=== PATIENT | female | born 1965 | race Caucasian/White ===

== ENCOUNTER → 2016-10-17 | Outpatient (CLI) | payer BC | END | disposition home or self-care (01) | LOC: C.PAPS 11:34 | PROVIDERS: ATTEND Obstetrics & Gynecology | DX: Z01.419 Encounter for gynecological examination (general) (routine) without abnormal findings (principal) ==

== ENCOUNTER → 2017-06-19 | Outpatient (CLI) | payer BC | END | disposition home or self-care (01) | LOC: C.PAPS 13:53 | PROVIDERS: ATTEND Obstetrics & Gynecology | DX: R87.612 Low grade squamous intraepithelial lesion on cytologic smear of cervix (LGSIL) (principal); Z78.0 Asymptomatic menopausal state ==

== ENCOUNTER → 2017-11-27 | Outpatient (CLI) | payer OTHER ==
--- NOTE | 2017-11-27 10:30 | DIAGNOSTIC IMAGING REPORT ---
ABDOMEN LIMITED (US) HISTORY: 52 years-old Female RT UPPER ABD DISCOMFORT acute right upper quadrant abdominal pain COMPARISON: None available TECHNIQUE: Multiple real-time sonographic images of the abdominal right upper quadrant were obtained assessing grayscale appearance and color flow FINDINGS: Pancreatic duct is within normal limits, 3 mm. Visualized pancreas appears unremarkable. Gallbladder is within normal limits without wall thickening, pericholecystic fluid or shadowing cholelithiasis. Liver is within normal limits without focal mass or intrahepatic biliary ductal dilation. Common bile duct is mildly dilated, 1.0 cm without obstructing stone or lesion identified. The right kidney appears unremarkable without hydronephrosis. IMPRESSION: 1. Unremarkable sonographic appearance of the gallbladder without cholelithiasis or acute cholecystitis. 2. Mild dilation of the common bile duct without obstructing stone or lesion identified. The above report was generated using voice recognition software. It may contain grammatical, syntax or spelling errors. Electronically signed by: Terry Townsend M.D. 11/27/2017 10:29 AM Dictated Date/Time: 11/27/2017 10:27 AM
== END | disposition home or self-care (01) ==
LOC: C.ULTRBC 10:07
PROVIDERS: ATTEND Physician Assistant
DX: R10.11 Right upper quadrant pain (principal)

== ENCOUNTER → 2018-02-03 | Outpatient (CLI) | payer OTHER ==
[~2018-02-03] MED LIST: DESL1TAB5 PO; HYDR-5688 PO; LANS30CA12 PO; ONDA4TAB46 PO; PANC6000 PO; TRAM-10 PO; VNTHFA/IN INH
[2018-02-03 14:27] LABS: HEMATOCRIT 32.9 % (37-47); MEAN CELL VOLUME 87.7 fL (80-100); MEAN CORPUSCULAR HEMOGLOBIN 29.3 pg (25-34); MEAN CORPUSCULAR HGB CONC 33.4 g/dl (32-36); MEAN PLATELET VOLUME 10.3 fL (7.4-10.4); PLATELET COUNT 156 K/uL (130-400); RED CELL DISTRIBUTION WIDTH CV 15.3 % (11.5-14.5); RED CELL DISTRIBUTION WIDTH SD 48.3 fL (36.4-46.3); WHITE BLOOD COUNT 6.07 K/uL (4.8-10.8)
[2018-02-03 14:57] LABS: ALBUMIN 2.8 gm/dl (3.4-5.0); ALKALINE PHOSPHATASE 276 U/L (45-117); ALT/SGPT 44 U/L (12-78); AST/SGOT 26 U/L (15-37); BLOOD UREA NITROGEN 6 mg/dl (7-18); CALCIUM 8.3 mg/dl (8.5-10.1); CARBON DIOXIDE 22 mmol/L (21-32); CREATININE 0.54 mg/dl (0.60-1.20); GLUCOSE 132 mg/dl (70-99); POTASSIUM 3.4 mmol/L (3.5-5.1); SODIUM 135 mmol/L (136-145); TOTAL PROTEIN 7.4 gm/dl (6.4-8.2)
[2018-02-03 15:11] LABS: BASO % 0.5 %; BASO ABS # 0.03 K/uL (0-0.2); EOS % 2.5 %; EOS ABS # 0.15 K/uL (0-0.5); IG# 0.26 K/uL (0.00-0.02); LYMPH % 24.1 %; LYMPH ABS # 1.46 K/uL (1.2-3.4); MONO % 13.7 %; MONO ABS # 0.83 K/uL (0.11-0.59); NEUT % 54.9 %; NEUT ABS # 3.34 K/uL (1.4-6.5)
== END | disposition home or self-care (01) ==
LOC: C.LABSPEC 14:09
PROVIDERS: ATTEND Internal Medicine Hematology & Oncology
DX: C25.9 Malignant neoplasm of pancreas, unspecified (principal)

== ENCOUNTER 2018-02-12 17:16 | Inpatient (IN) | payer OTHER ==
[~2018-02-12] VITALS: Ht 175.3 cm; Wt 73.7 kg
[2018-02-12] MEDS ORDERED: SODIUM CHLORIDE 0.9% 1000ML 1,000 ML IV STA (17:37)
[2018-02-12] MEDS ORDERED: DiphenhydrAMINE HCL 50 MG/ML VIAL IV STA (17:37)
[2018-02-12] MEDS ORDERED: METHYLPREDNISOLONE 125 MG VIAL IV STA (17:37)
[2018-02-12] MEDS ORDERED: ONDANSETRON INJ 2 MG/ML 2 ML VIAL IV STA (17:37)
[2018-02-12] MEDS ORDERED: OPTIRAY 320 IV PRN (17:45)
[2018-02-12] MEDS: FENTANYL CITRATE INJ 50 MCG/1 ML 2 ML VIAL IV PRN ×2 (18:12→22:18)
--- NOTE | 2018-02-12 18:15 | DIAGNOSTIC IMAGING REPORT ---
CHEST ONE VIEW PORTABLE CLINICAL HISTORY: EVALUATE ALTERED MENTAL STATUS/WEAKNESS COMPARISON STUDY: 01/20/2018 FINDINGS: The bones soft tissues and hemidiaphragms are normal. The cardiomediastinal silhouette is normal. The lungs are clear. The pulmonary vasculature is normal. IMPRESSION: Negative chest. The above report was generated using voice recognition software. It may contain grammatical, syntax or spelling errors. Electronically signed by: Jimmy Sellers M.D. 02/12/2018 6:14 PM Dictated Date/Time: 02/12/2018 6:13 PM
[2018-02-12 18:24] LABS: ISTAT CREATININE 0.3 mg/dl (0.6-1.3); ISTAT IONIZED CALCIUM 1.1 mmol/l (1.12-1.32); ISTAT POTASSIUM 3.6 mEq/L (3.3-5.0)
[2018-02-12 18:36] LABS: ALBUMIN 2.7 gm/dl (3.4-5.0); CALCIUM 8.4 mg/dl (8.5-10.1); CREATININE 0.52 mg/dl (0.60-1.20); POTASSIUM 3.5 mmol/L (3.5-5.1); TOTAL PROTEIN 6.8 gm/dl (6.4-8.2)
--- NOTE | 2018-02-12 18:41 | DIAGNOSTIC IMAGING REPORT ---
ABD/PELVIS IV CONTRAST ONLY CT DOSE: 348.45 mGy.cm HISTORY: Pain. Nausea. uppwer pain, hx of pancreatic CA with duodenal stent TECHNIQUE: Multiaxial CT images of the abdomen and pelvis were performed following the use of intravenous contrast. A dose lowering technique was utilized adhering to the principles of ALARA. COMPARISON STUDY: 01/01/2018 FINDINGS: Interval placement of a transhepatic biliary drain. This appears to be in appropriate position. The stent previously described is unchanged. Lung bases are clear. There is trace amount of the biliary ductal air considered unremarkable given the stent placements as noted. The peripancreatic infiltrative change present described as diminished. Masslike process lesion the pancreatic head and uncinate process is similar. The infiltrative change of the peripancreatic region in this location appears stable. The distended gallbladder in the prior study is no longer present. The bowel pattern is considered nonobstructive throughout. There is a trace amount of infiltrative change of the paracolic gutters but this is improved. There is a small amount of pelvic ascites diminished and/or improved from the prior study. Uterus is anteflexed. Bladder is midline. IMPRESSION: 1. Improved exam post transhepatic biliary stent placement. 2. No current evidence for significant biliary ductal distention. 3. Improved gallbladder with no current evidence for distention. 4. Improved ascites with minimal residual in the pelvis. 5. Improved peripancreatic infiltrative change 6. Unchanging pancreatic head/uncinate process mass. The above report was generated using voice recognition software. It may contain grammatical, syntax or spelling errors. Electronically signed by: Jimmy Sellers M.D. 02/12/2018 6:37 PM Dictated Date/Time: 02/12/2018 6:29 PM
[2018-02-12 18:56] LABS: HEMATOCRIT 25.8 % (37-47); HEMOGLOBIN 8.9 g/dL (12.0-16.0); MEAN CELL VOLUME 84.3 fL (80-100); MEAN CORPUSCULAR HEMOGLOBIN 29.1 pg (25-34); MEAN CORPUSCULAR HGB CONC 34.5 g/dl (32-36); RED CELL DISTRIBUTION WIDTH CV 14.6 % (11.5-14.5); WHITE BLOOD COUNT 1.16 K/uL (4.8-10.8)
[2018-02-12] MEDS ORDERED: MAGIC MOUTHWASH PO (19:22)
[2018-02-12] MEDS ORDERED: PROC10TA PO (19:22)
[2018-02-12] MEDS ORDERED: ALBUTEROL INH (19:22)
[2018-02-12] MEDS ORDERED: CLR10 PO (19:22)
[2018-02-12] MEDS ORDERED: [UNRECOGNIZED DRUG - MIXTURE] IV (19:22)
[2018-02-12 19:26] LABS: MEAN PLATELET VOLUME 10.9 fL (7.4-10.4); PLATELET COUNT 64 K/uL (130-400)
[2018-02-12] MEDS ORDERED: VANCOMYCIN IV 1,400 MG in SODIUM CHLORIDE 0.9% 500ML 500 ML IV STA (20:54)
[2018-02-12] MEDS ORDERED: PIPERACILLIN/TAZOBACTAM 4.5 GM/100ML D5W IV STA (20:54)
[2018-02-12] MEDS ORDERED: VANCOMYCIN CONSULT ACTIVE PRN ×3 (21:00→22:45)
[2018-02-12] MEDS ORDERED: ACETAMINOPHEN 325 MG TAB PO PRN (21:30)
--- NOTE | 2018-02-12 21:30 | EMERGENCY ROOM VISIT NOTE ---
History Report prepared by Bri: America Akins Under the Supervision of: Dr. Hammad Mcneil D.O. First contact with patient: 17:27 Chief Complaint: VOMITING Stated Complaint: VOMITING,DEHYDRATED,ON CHEMO PANCREATIC CANCER History of Present Illness The patient is a 53 year old female who presents to the Emergency Room with complaints of constant vomiting starting today. The patient states that she has pancreatic cancer. She reports that she is currently going through her second round of chemotherapy. She reports that she has been fatigued, but was during the first round as well. The patient states that last night she started having lower abdominal pain that felt like cramping. She reports that she took Tramadol and it subsided overnight. She notes that she has a fibroid and talked to her OB[facility] since she is unsure if it is related. She reports that this morning she started having sharp pain in her upper abdomen. She states that it gets better in certain body positions. The patient reports that she last vomited an hour and a half ago. The patient reports that she has a duodenal stent and biliary drain placed due to her cancer progressing. She states that she is nervous the stent moved. She notes that she called Dr. Suarez and he said to come to the ED. The patient complains of diarrhea, a dry throat, and a low grade fever. She notes that her fever was 99. The patient denies having nausea medications, cough, leg swelling, her drain draining abnormally, and use of blood thinners. The patient notes that her LNMP was over 2 years ago. Source of History: patient Onset: today Position: abdomen Quality: other (vomiting) Timing: constant Modifying Factors (Relieving): other (Tramadol, certain body positions) Associated Symptoms: + fevers (low grade), + abdominal pain, + diarrhea, + fatigue, No cough Note: The patient complains of a dry throat. The patient denies leg swelling and her drain draining abnormally. Review of Systems See HPI for pertinent positives & negatives. A total of 10 systems reviewed and were otherwise negative. Past Medical & Surgical Medical Problems: (1) Mononucleosis (2) Pancreatic cancer (3) Pancytopenia due to chemotherapy Family History No pertinent family history Social History Smoking Status: Never Smoker Marital Status: Housing Status: lives with family Occupation Status: employed Current/Historical Medications Scheduled Lansoprazole (Prevacid), 30 MG PO QAM Loratadine (Claritin), 10 MG PO DAILY Pancrelipase (Lipase-Protease- (Creon), 72,000 UNITS PO TIDM [Folfirinox], 1 DOSE IV UD [Magic Mouthwash], 1 DOSE PO PRN Scheduled PRN Ondansetron Hcl (Zofran), 4 MG PO Q6 PRN for Nausea Prochlorperazine Maleate (Compazine), 10 MG PO Q6H PRN for Nausea or Vomiting Tramadol (Ultram), 50 MG PO Q4H PRN for Pain [Proair 90 Base], 2 PUFF INH Q4 PRN for Wheezing Allergies Coded Allergies: Iodine (Verified Allergy, Intermediate, ITCHY/HIVES, 01/20/18) Iodinated Diagnostic Agents (Verified Allergy, Unknown, CONTRAST MEDIA: ITCHY/HIVES, 01/20/18) Physical Exam Vital Signs Date Time Temp Pulse Resp B/P (MAP) Pulse Ox O2 Delivery O2 Flow Rate FiO2 02/12/18 21:51 75 18 106/64 96 Room Air 02/12/18 20:28 84 108/60 02/12/18 19:53 85 18 91/53 96 Room Air 02/12/18 18:42 90 16 112/65 95 Room Air 02/12/18 17:54 94 02/12/18 17:45 96 Room Air 02/12/18 17:21 37.2 107 18 111/74 96 Room Air Physical Exam GENERAL: Patient is awake, alert, and very anxious appearing. Uncomfortable. EYES: The conjunctivae are clear. The pupils are round and reactive. EARS, NOSE, MOUTH AND THROAT: The nose is without any evidence of any deformity. Mucous membranes are dry. Tongue is midline NECK: The neck is nontender and supple. RESPIRATORY: Normal respiratory effort is noted. There is no evidence of wheezing rhonchi or rales to auscultation. CARDIOVASCULAR: Regular rate and rhythm noted. There no murmurs rubs or gallops normal S1 normal S2 GASTROINTESTINAL: The abdomen is mildly distended, but soft. Bowel sounds are present in all quadrants. RUQ tenderness to palpation. Drain in RUQ with bile draining into bag. BACK: No midline tenderness or or step-off noted range of motion in flexion extension as well as rotation no signs of muscle spasm noted. MUSCULOSKELETAL/EXTREMITIES: There is no evidence of gross deformity. Full range of motion is noted in the hips and shoulders. SKIN: There is no obvious evidence of any rash. There are no petechiae, pallor or cyanosis noted. Trace pedal edema bilaterally. NEUROLOGIC: Patient is awake alert and oriented x3. Strength is symmetric. Patellar reflexes are 2+ bilaterally. Medical Decision & Procedures ER Provider Diagnostic Interpretation: Radiology results as stated below per my review and radiologist interpretation: CHEST ONE VIEW PORTABLE CLINICAL HISTORY: EVALUATE ALTERED MENTAL STATUS/WEAKNESS COMPARISON STUDY: 01/20/2018 FINDINGS: The bones soft tissues and hemidiaphragms are normal. The cardiomediastinal silhouette is normal. The lungs are clear. The pulmonary vasculature is normal. IMPRESSION: Negative chest. The above report was generated using voice recognition software. It may contain grammatical, syntax or spelling errors. Electronically signed by: Jimmy Sellers M.D. 02/12/2018 6:14 PM Dictated Date/Time: 02/12/2018 6:13 PM ABD/PELVIS IV CONTRAST ONLY CT DOSE: 348.45 mGy.cm HISTORY: Pain. Nausea. uppwer pain, hx of pancreatic CA with duodenal stent TECHNIQUE: Multiaxial CT images of the abdomen and pelvis were performed following the use of intravenous contrast. A dose lowering technique was utilized adhering to the principles of ALARA. COMPARISON STUDY: 01/01/2018 FINDINGS: Interval placement of a transhepatic biliary drain. This appears to be in appropriate position. The stent previously described is unchanged. Lung bases are clear. There is trace amount of the biliary ductal air considered unremarkable given the stent placements as noted. The peripancreatic infiltrative change present described as diminished. Masslike process lesion the pancreatic head and uncinate process is similar. The infiltrative change of the peripancreatic region in this location appears stable. The distended gallbladder in the prior study is no longer present. The bowel pattern is considered nonobstructive throughout. There is a trace amount of infiltrative change of the paracolic gutters but this is improved. There is a small amount of pelvic ascites diminished and/or improved from the prior study. Uterus is anteflexed. Bladder is midline. IMPRESSION: 1. Improved exam post transhepatic biliary stent placement. 2. No current evidence for significant biliary ductal distention. 3. Improved gallbladder with no current evidence for distention. 4. Improved ascites with minimal residual in the pelvis. 5. Improved peripancreatic infiltrative change 6. Unchanging pancreatic head/uncinate process mass. The above report was generated using voice recognition software. It may contain grammatical, syntax or spelling errors. Electronically signed by: Jimmy Sellers M.D. 02/12/2018 6:37 PM Dictated Date/Time: 02/12/2018 6:29 PM Laboratory Results 02/12/18 18:36 Red Blood Count 3.06, Mean Corpuscular Volume 84.3, Mean Corpuscular Hemoglobin 29.1, Mean Corpuscular Hemoglobin Concent 34.5, Mean Platelet Volume 10.9 02/12/18 18:00 Test 02/12/18 18:00 02/12/18 18:08 02/12/18 18:36 02/12/18 18:43 Est Creatinine Clear Calc Drug Dose 133.8 ml/min Estimated GFR () 128.2 Estimated GFR (Non- 110.6 BUN/Creatinine Ratio 12.6 (10-20) Calcium Level 8.4 mg/dl (8.5-10.1) Magnesium Level 2.2 mg/dl (1.8-2.4) Total Bilirubin 2.3 mg/dl (0.2-1) Direct Bilirubin 1.8 mg/dl (0-0.2) Aspartate Amino Transf (AST/SGOT) 18 U/L (15-37) Alanine Aminotransferase (ALT/SGPT) 41 U/L (12-78) Alkaline Phosphatase 193 U/L (45-117) Total Protein 6.8 gm/dl (6.4-8.2) Albumin 2.7 gm/dl (3.4-5.0) Lipase 259 U/L (73-393) Bedside Hemoglobin 11.2 g/dl (12.0-16.0) Bedside Hematocrit 33 % (37-47) Bedside Sodium 130 mEq/L (135-144) Bedside Potassium 3.6 mEq/L (3.3-5.0) Bedside Chloride 94 mEq/L (101-112) Bedside Total CO2 23 mEq/l (24-31) Anion Gap 17.0 mmol/L (16-25) Bedside Blood Urea Nitrogen 5 mg/dl (7-18) Bedside Creatinine 0.3 mg/dl (0.6-1.3) Bedside Glucose (other) 118 mg/dl (70-99) Bedside Ionized Calcium (Savita) 1.10 mmol/l (1.12-1.32) White Blood Count 1.16 K/uL (4.8-10.8) Red Blood Count 3.06 M/uL (4.2-5.4) Hemoglobin 8.9 g/dL (12.0-16.0) Hematocrit 25.8 % (37-47) Mean Corpuscular Volume 84.3 fL (80-100) Mean Corpuscular Hemoglobin 29.1 pg (25-34) Mean Corpuscular Hemoglobin Concent 34.5 g/dl (32-36) Platelet Count 64 K/uL (130-400) Mean Platelet Volume 10.9 fL (7.4-10.4) RDW Standard Deviation 45.0 fL (36.4-46.3) RDW Coefficient of Variation 14.6 % (11.5-14.5) Neutrophils % (Manual) 6.4 % Lymphocytes % (Manual) 84.4 % Monocytes % (Manual) 9.2 % Neutrophils # (Manual) 0.07 K/uL (1.4-6.5) Total Absolute Neutrophils 0.07 K/uL (1.4-6.5) Lymphocytes # (Manual) 0.98 K/uL (1.2-3.4) Total Absolute Lymphocytes 0.98 K/uL (1.2-3.4) Monocytes # (Manual) 0.11 K/uL (0.11-0.59) Dohle Bodies 2+ Large Platelets 2+ Urine Color YELLOW Urine Appearance CLEAR (CLEAR) Urine pH 7.0 (4.5-7.5) Urine Specific [place] 1.015 (1.000-1.030) Urine Protein NEG (NEG) Urine Glucose (UA) NEG (NEG) Urine Ketones NEG (NEG) Urine Occult Blood NEG (NEG) Urine Nitrite NEG (NEG) Urine Bilirubin NEG (NEG) Urine Urobilinogen NEG (NEG) Urine Leukocyte Esterase TRACE (NEG) Urine WBC (Auto) 5-10 /hpf (0-5) Urine RBC (Auto) 0-4 /hpf (0-4) Urine Hyaline Casts (Auto) 0 /lpf (0-5) Urine Epithelial Cells (Auto) 5-10 /lpf (0-5) Urine Bacteria (Auto) NEG (NEG) Laboratory results per my review. Medications Administered Medications (Trade) Dose Ordered Sig/Rae Route Start Time Stop Time Status Last Admin Dose Admin Ondansetron HCl (Zofran Inj) 4 mg NOW STAT IV 02/12/18 17:37 02/12/18 17:40 DC 02/12/18 18:11 4 MG Sodium Chloride 1,000 ml @ 999 mls/hr Q1H1M STAT IV 02/12/18 17:37 02/12/18 18:37 DC 02/12/18 18:11 999 MLS/HR Fentanyl Citrate (Fentanyl Inj) 50 mcg Q20M PRN IV 02/12/18 17:45 02/26/18 17:44 02/12/18 22:18 50 MCG Methylprednisolone Sodium Succinate (Solu-Medrol IV) 125 mg NOW STAT IV 02/12/18 17:37 02/12/18 17:40 DC 02/12/18 18:11 125 MG Diphenhydramine HCl (Benadryl Inj) 25 mg NOW STAT IV 02/12/18 17:37 02/12/18 17:40 DC 02/12/18 18:11 25 MG Piperacillin Sod/ Tazobactam Sod (Zosyn Iv) 4.5 gm NOW STAT IV 02/12/18 20:54 02/12/18 20:56 DC 02/12/18 21:10 4.5 GM Vancomycin HCl 1400 mg/Sodium Chloride 528 ml @ 200 mls/hr ONE STAT IV 02/12/18 20:54 02/12/18 23:32 02/12/18 21:50 200 MLS/HR Pantoprazole Sodium 40 mg/ Syringe 10 ml @ 5 mls/min NOW STAT IV 02/12/18 21:51 02/12/18 21:52 DC 02/12/18 22:18 5 MLS/MIN ECG Per My Interpretation Indication: vomiting Rate (beats per minute): 96 Rhythm: normal sinus Findings: other (diffuse ST and T wave abnormalities noted) Comparison ECG Date: 01/01/2018 Change: no significant change ED Course 173: The patient was evaluated in room A2. A complete history and physical examination were performed. 1736: Ordered Benadryl Inj 25 mg IV, Solu-Medrol IV 125 mg IV, NSS 1000 ml @ 999 mls/hr IV, Zofran Inj 4 mg IV. 1745: Ordered Fentanyl Inj 50 mcg PRN IV Pain. 1929: I reevaluated the patient and updated her on her test results. I discussed the treatment plan with her. She verbally agrees and understands. 2052: I discussed the patient's case with Dr. aMrk SAEZ Hospitalist. He would like an order of Zosyn and Vancomycin. The patient will be evaluated for further management. 2053: Ordered Vancomycin HCl 1400 mg/Sodium Cloride 528 ml @ 200 mls/hr IV, Zosyn Iv 4.5 gm IV. Medical Decision Prior records/ancillary studies reviewed. Triage Nursing notes reviewed. The patient's history was concerning for abdominal pain. Differential diagnosis: Etiologies such as appendicitis, diverticulitis, PUD, biliary pathology, UTI, pancreatitis, obstruction, mesenteric ischemia, aortic pathology, infections, inflammatory bowel disease, renal colic, as well as others were entertained. The patient is a 53-year-old female who has a history of pancreatic cancer. The patient has a biliary stent as well as a duodenal stent. She came to the emergency department today because of abdominal discomfort. She recently received chemotherapy. She was pancytopenic with significant neutropenia. I discussed patient's laboratory and radiographic studies with her. She was treated with IV fluids IV pain medicine and IV anti-medics. Because of her laboratory studies she was started on IV antibiotics. I discussed patient's laboratory and radiographic studies with her. I also discussed this case with the on-call [facility] hospitalist. They have agreed to evaluate patient in the emergency department for further management and disposition. Medication Reconcilliation Current Medication List: was personally reviewed by me Blood Pressure Screening Patient's blood pressure: Normal blood pressure Blood pressure disposition: Did not require urgent referral Consults Time Called: 2003 Consulting Physician: Dr. Mark SAZE Hospitalist Returned Call: [phone] I discussed the patient's case with Dr. Mark SAEZ Hospitalist. He would like an order of Zosyn and Vancomycin. The patient will be evaluated for further management. Impression Primary Impression: Neutropenia Additional Impressions: Abdominal pain Pancreatic cancer Hyponatremia Hyperbilirubinemia Scribe Attestation The scribe's documentation has been prepared under my direction and personally reviewed by me in its entirety. I confirm that the note above accurately reflects all work, treatment, procedures, and medical decision making performed by me. Departure Information Dispostion Being Evaluated By Hospitalist Referrals Pro,Hammad Castillo M.D. (PCP) Patient Instructions [facility] Problem Qualifiers
[2018-02-12] MEDS ORDERED: VANCOMYCIN IV 1,000 MG in SODIUM CHLORIDE 0.9% 250ML 250 ML IV STA (21:32)
[2018-02-12] MEDS ORDERED: DiphenhydrAMINE HCL 50 MG/ML VIAL IV PRN (21:45)
[2018-02-12] MEDS ORDERED: ONDANSETRON INJ 2 MG/ML 2 ML VIAL IV PRN (21:45)
[2018-02-12] MEDS ORDERED: PIPERACILL/TAZOBAC CONSULT ACTIVE PRN (21:45)
[2018-02-12] MEDS ORDERED: ACETAMINOPHEN IV 100 ML IV PRN (21:45)
[2018-02-12] MEDS ORDERED: VANCOMYCIN IV 1,750 MG in SODIUM CHLORIDE 0.9% 500ML 500 ML IV STA (21:47)
[2018-02-12] MEDS ORDERED: PANTOprazole INJ 40 MG in SYRINGE 0 ML IV STA (21:51)
[2018-02-12] MEDS ORDERED: PROCHLORPERAZINE INJ 10 MG in SYRINGE 8 ML IV PRN (22:15)
--- NOTE | 2018-02-12 22:30 | Pharmacy Progress Note ---
Pharmacy Abx Dose Short Note Date of Service Feb 12, 2018. Assessment & Plan Assessment 53 year old female admitted with sever abdominal pain, pancytopenic...receiving Vancomycin and zosyn Day # 1 of antimicrobial therapy. * Pt is currently being treated with chemo for pancreatic cancer. * Blood cultures pending. * Renal function at baseline. Plan Vancomycin * Loading dose 1400mg (19mg/kg) x 1 * Maintenance dose: 1000mg (14mg/kg) iv q 8 hours * Goal trough level : 15 to 20 mcg/mL * Trough level ordered for: 02/14 @0930 Zosyn * 4.5 gm iv x 1 in ER * then 3.375gm iv q 8 hours (EI) Pharmacy will continue to follow and will adjust dose/frequency as necessary. Thank you.
[2018-02-12 22:35] VITALS: BP 97/65; PULSE 78; TEMP 36.8; O2SAT 97; BMI 23.0
--- NOTE | 2018-02-12 22:53 | History and Physical ---
History & Physical Date & Time of Service: Feb 12, 2018 at 22:53 Chief Complaint: Pancreatic Cancer,Pancytopenia Due To Chemotherapy Primary Care Physician: Hammad Mathis M.D. History of Present Illness Source: patient, family, hospital records Past Medical/Surgical History Medical Problems: (1) Abdominal pain (2) Dehydration (3) Elevated LFTs (4) Mononucleosis (5) Pancreatic cancer (6) Pancreatitis (7) Pancytopenia due to chemotherapy (8) UTI (urinary tract infection) Family History No pertinent family history The patient is a 53-year-old female with a recent diagnosis of pancreatic cancer , having completed the first cycle of chemotherapy, who presents to the emergency department with persistent nausea and vomiting that began earlier in the day today. She has had lower crampy abdominal discomfort, for which she is also seeing Dr. Shell from [facility] with concern that it is due to a fibroid. Her pain did resolve overnight with tramadol. When she woke up this morning, the pain was more sharp in her upper abdomen epigastric area. She has had duodenal stent and biliary stent placement, and her initial ERCP was performed by Dr. treviño so here on 12/17/17, and underwent surgery by Dr. Jamari Pérez on . She called Dr. kamila Kuo's office, and she was concerned that the stent has moved, and he told her to come to the emergency department for assessment. Patient also has loose stools, a dry throat, and intermittent low-grade fever up to a max of 99. Social History Smoking Status: Never Smoker Smokeless Tobacco Use: No Alcohol Use: none Drug Use: none Marital Status: Housing status: lives with family Occupational Status: employed Immunizations History of Influenza Vaccine: Unknown History of Tetanus Vaccine?: Unknown History of Pneumococcal: Unknown History of Hepatitis B Vaccine: Unknown Allergies Coded Allergies: Iodine (Verified Allergy, Intermediate, ITCHY/HIVES, 01/20/18) Iodinated Diagnostic Agents (Verified Allergy, Unknown, CONTRAST MEDIA: ITCHY/HIVES, 01/20/18) Home Medications Scheduled Lansoprazole (Prevacid), 30 MG PO QAM Loratadine (Claritin), 10 MG PO DAILY Pancrelipase (Lipase-Protease- (Creon), 72,000 UNITS PO TIDM [Folfirinox], 1 DOSE IV UD [Magic Mouthwash], 1 DOSE PO PRN Scheduled PRN Ondansetron Hcl (Zofran), 4 MG PO Q6 PRN for Nausea Prochlorperazine Maleate (Compazine), 10 MG PO Q6H PRN for Nausea or Vomiting Tramadol (Ultram), 50 MG PO Q4H PRN for Pain [Proair 90 Base], 2 PUFF INH Q4 PRN for Wheezing Review of Systems The patient denies chest pain, palpitations, shortness of breath, dyspnea on exertion, cough, lower extremity swelling, blood in urine or stool, dysuria, urinary frequency or urgency, lightheadedness , dizziness, headache, memory loss, loss of consciousness, rash, abnormal bruising or bleeding, imbalance, focal or generalized weakness, numbness or tingling in arms or legs, generalized arthralgias or myalgias, back or neck pain, or night sweats. The review of systems is otherwise negative other than for that already noted above, and at least 10 systems have been reviewed. Physical Exam Vital Signs Date Time Temp Pulse Resp B/P (MAP) Pulse Ox O2 Delivery O2 Flow Rate FiO2 02/12/18 21:51 75 18 106/64 96 Room Air 02/12/18 20:28 84 108/60 02/12/18 19:53 85 18 91/53 96 Room Air 02/12/18 18:42 90 16 112/65 95 Room Air 02/12/18 17:54 94 02/12/18 17:45 96 Room Air 02/12/18 17:21 37.2 107 18 111/74 96 Room Air The patient is awake, alert and oriented 3, well developed and well nourished, normocephalic and atraumatic, lying in bed and in no acute distress. HEENT--PERRL, EOMI, mucous membranes and oropharynx dry. Neck--supple. No JVD. No bruits. Thyroid normal, trachea midline, no adenopathy. Heart--normal S1 and S2. No murmurs, rubs or gallops. Lungs--clear bilaterally, no respiratory distress, no accessory muscle use. Abdomen--normal bowel sounds and soft. Mild epigastric tenderness. Nondistended. Extremities--no cyanosis or clubbing. No edema. There are good distal pulses b/ l. Dermatologic--normal skin turgor, normal color, no abnormal lymph nodes, no rash. Neurologic--cranial nerves II through XII grossly intact. Rheumatologic--normal range of motion. Psychiatric--normal affect. Diagnostics Laboratory Results Results Past 24 Hours Test 02/12/18 18:00 02/12/18 18:08 02/12/18 18:36 02/12/18 18:43 Range/Units Sodium Level 127 136-145 mmol/L Potassium Level 3.5 3.5-5.1 mmol/L Chloride Level 96 98-107 mmol/L Carbon Dioxide Level 25 21-32 mmol/L Anion Gap 6.0 17.0 16-25 mmol/L Blood Urea Nitrogen 7 7-18 mg/dl Creatinine 0.52 0.60-1.20 mg/dl Est Creatinine Clear Calc Drug Dose 133.8 ml/min Estimated GFR () 128.2 Estimated GFR (Non- 110.6 BUN/Creatinine Ratio 12.6 10-20 Random Glucose 113 70-99 mg/dl Calcium Level 8.4 8.5-10.1 mg/dl Magnesium Level 2.2 1.8-2.4 mg/dl Total Bilirubin 2.3 0.2-1 mg/dl Direct Bilirubin 1.8 0-0.2 mg/dl Aspartate Amino Transf (AST/SGOT) 18 15-37 U/L Alanine Aminotransferase (ALT/SGPT) 41 12-78 U/L Alkaline Phosphatase 193 45-117 U/L Total Protein 6.8 6.4-8.2 gm/dl Albumin 2.7 3.4-5.0 gm/dl Lipase 259 73-393 U/L Bedside Hemoglobin 11.2 12.0-16.0 g/dl Bedside Hematocrit 33 37-47 % Bedside Sodium 130 135-144 mEq/L Bedside Potassium 3.6 3.3-5.0 mEq/L Bedside Chloride 94 101-112 mEq/L Bedside Total CO2 23 24-31 mEq/l Bedside Blood Urea Nitrogen 5 7-18 mg/dl Bedside Creatinine 0.3 0.6-1.3 mg/dl Bedside Glucose (other) 118 70-99 mg/dl Bedside Ionized Calcium (Savita) 1.10 1.12-1.32 mmol/l White Blood Count 1.16 4.8-10.8 K/uL Red Blood Count 3.06 4.2-5.4 M/uL Hemoglobin 8.9 12.0-16.0 g/dL Hematocrit 25.8 37-47 % Mean Corpuscular Volume 84.3 80-100 fL Mean Corpuscular Hemoglobin 29.1 25-34 pg Mean Corpuscular Hemoglobin Concent 34.5 32-36 g/dl Platelet Count 64 130-400 K/uL Mean Platelet Volume 10.9 7.4-10.4 fL RDW Standard Deviation 45.0 36.4-46.3 fL RDW Coefficient of Variation 14.6 11.5-14.5 % Neutrophils % (Manual) 6.4 % Lymphocytes % (Manual) 84.4 % Monocytes % (Manual) 9.2 % Neutrophils # (Manual) 0.07 1.4-6.5 K/uL Total Absolute Neutrophils 0.07 1.4-6.5 K/uL Lymphocytes # (Manual) 0.98 1.2-3.4 K/uL Total Absolute Lymphocytes 0.98 1.2-3.4 K/uL Monocytes # (Manual) 0.11 0.11-0.59 K/uL Dohle Bodies 2+ Large Platelets 2+ Urine Color YELLOW Urine Appearance CLEAR CLEAR Urine pH 7.0 4.5-7.5 Urine Specific Freeman 1.015 1.000-1.030 Urine Protein NEG NEG Urine Glucose (UA) NEG NEG Urine Ketones NEG NEG Urine Occult Blood NEG NEG Urine Nitrite NEG NEG Urine Bilirubin NEG NEG Urine Urobilinogen NEG NEG Urine Leukocyte Esterase TRACE NEG Urine WBC (Auto) 5-10 0-5 /hpf Urine RBC (Auto) 0-4 0-4 /hpf Urine Hyaline Casts (Auto) 0 0-5 /lpf Urine Epithelial Cells (Auto) 5-10 0-5 /lpf Urine Bacteria (Auto) NEG NEG Microbiology Results 02/12/18 Blood Culture, Received Pending 02/12/18 Blood Culture, Received Pending Diagnostic Radiology Patient Name: ALDO ORTEGA Unit Number: [id number] Dictated: 02/12/181812 Transcribed: 02/12/181812 MS Printed Date/Time: [~ rep prt dt]/[~ rep prt tm] [~ rep ct labl] - [~ rep ct ivnm] [facility] [place] [address] Dictated: 02/12/181812 Transcribed: 02/12/181812 MS Printed Date/Time: [~ rep prt dt]/[~ rep prt tm] [~ rep ct labl] - [~ rep ct ivnm] CHEST ONE VIEW PORTABLE CLINICAL HISTORY: EVALUATE ALTERED MENTAL STATUS/WEAKNESS COMPARISON STUDY: 01/20/2018 FINDINGS: The bones soft tissues and hemidiaphragms are normal. The cardiomediastinal silhouette is normal. The lungs are clear. The pulmonary vasculature is normal. IMPRESSION: Negative chest. The above report was generated using voice recognition software. It may contain grammatical, syntax or spelling errors. Electronically signed by: Jimmy Sellers M.D. 02/12/2018 6:14 PM Dictated Date/Time: 02/12/2018 6:13 PM The status of this report is Signed. Draft = Not yet reviewed or approved by Radiologist. Signed = Reviewed and approved by Radiologist. <AttendingPhy></AttendingPhy> <FamilyPhy>Hammad Mathis M.D.</FamilyPhy> < PrimaryPhy>Hammad Mathis M.D.</PrimaryPhy> <UnitNumber>[id number]</UnitNumber > <VisitNumber>[id number]</VisitNumber> <PatientName>ALDO ORTEGA Elicia</PatientName> <DateOfBirth>1965</DateOfBirth> <Location>[facility]</ Location> <ServiceDate>02/12/18</ServiceDate> <MNE>ESINDI</MNE> <OrderingPhy> Hammad Mcneil D.O.</OrderingPhy> <OrderingPhyMNE>f rep ord dr zamora</ OrderingPhyMNE> <DictatingPhyMNE>f rep dict dr zamora</DictatingPhyMNE> <CCListMNE> f rep ct luis daniele</CCListMNE> <AdmittingPhyMNE>f pt admit dr zamora</AdmittingPhyMNE> < AttendingPhyMNE>f pt attend dr zamora</AttendingPhyMNE> <ConsultingPhyMNE>f pt consult dr zamora</ConsultingPhyMNE> <FamilyPhyMNE>f pt fam dr zamora</FamilyPhyMNE> <OtherPhyMNE>f pt other dr zamora</OtherPhyMNE> < PrimaryPhyMNE>f pt prim care dr zamora</PrimaryPhyMNE> <ReferringPhyMNE>f pt referring dr zamora</ReferringPhyMNE> Patient Name: ALDO ORTEGA Unit Number: [id number] Dictated: 02/12/181828 Transcribed: 02/12/181828 MS Printed Date/Time: [~ rep prt dt]/[~ rep prt tm] [~ rep ct labl] - [~ rep ct ivnm] [facility] Radiology Department [place], [place] [id number] Dictated: 02/12/181828 Transcribed: 02/12/181828 MS Printed Date/Time: [~ rep prt dt]/[~ rep prt tm] [~ rep ct labl] - [~ rep ct ivnm] [~ rep ct add3]] ABD/PELVIS IV CONTRAST ONLY CT DOSE: 348.45 mGy.cm HISTORY: Pain. Nausea. uppwer pain, hx of pancreatic CA with duodenal stent TECHNIQUE: Multiaxial CT images of the abdomen and pelvis were performed following the use of intravenous contrast. A dose lowering technique was utilized adhering to the principles of ALARA. COMPARISON STUDY: 01/01/2018 FINDINGS: Interval placement of a transhepatic biliary drain. This appears to be in appropriate position. The stent previously described is unchanged. Lung bases are clear. There is trace amount of the biliary ductal air considered unremarkable given the stent placements as noted. The peripancreatic infiltrative change present described as diminished. Masslike process lesion the pancreatic head and uncinate process is similar. The infiltrative change of the peripancreatic region in this location appears stable. The distended gallbladder in the prior study is no longer present. The bowel pattern is considered nonobstructive throughout. There is a trace amount of infiltrative change of the paracolic gutters but this is improved. There is a small amount of pelvic ascites diminished and/or improved from the prior study. Uterus is anteflexed. Bladder is midline. IMPRESSION: 1. Improved exam post transhepatic biliary stent placement. 2. No current evidence for significant biliary ductal distention. 3. Improved gallbladder with no current evidence for distention. 4. Improved ascites with minimal residual in the pelvis. 5. Improved peripancreatic infiltrative change 6. Unchanging pancreatic head/uncinate process mass. The above report was generated using voice recognition software. It may contain grammatical, syntax or spelling errors. Electronically signed by: Jimmy Sellers M.D. 02/12/2018 6:37 PM Dictated Date/Time: 02/12/2018 6:29 PM The status of this report is Signed. Draft = Not yet reviewed or approved by Radiologist. Signed = Reviewed and approved by Radiologist. <AttendingPhy></AttendingPhy> <FamilyPhy>Hammad Mathis M.D.</FamilyPhy> < PrimaryPhy>Hammad Mathis M.D.</PrimaryPhy> <UnitNumber>[id number]</UnitNumber > <VisitNumber>[id number]</VisitNumber> <PatientName>ALDO ORTEGA</PatientName> <DateOfBirth>1965</DateOfBirth> <Location>[facility]</ Location> <ServiceDate>02/12/18</ServiceDate> <MNE>ESINDI</MNE> <OrderingPhy> Hammad Mcneil D.O.</OrderingPhy> <OrderingPhyMNE>f rep ord dr zamora</ OrderingPhyMNE> <DictatingPhyMNE>f rep dict dr zamora</DictatingPhyMNE> <CCListMNE> f rep ct mne</CCListMNE> <AdmittingPhyMNE>f pt admit dr zamora</AdmittingPhyMNE> < AttendingPhyMNE>f pt attend dr zamora</AttendingPhyMNE> <ConsultingPhyMNE>f pt consult dr zamora</ConsultingPhyMNE> <FamilyPhyMNE>f pt fam dr zamora</FamilyPhyMNE> <OtherPhyMNE>f pt other dr zamora</OtherPhyMNE> < PrimaryPhyMNE>f pt prim care dr zamora</PrimaryPhyMNE> <ReferringPhyMNE>f pt referring dr zamora</ReferringPhyMNE> EKG ALDO ORTEGA ID:[id number] 12-FEB-2018 17:49:16 [facility] Normal sinus rhythm Nonspecific ST and T wave abnormality Abnormal ECG When compared with ECG of 01-JAN-2018 03:19, No significant change was found Confirmed by ELIZA FELDER ([id number]) on 02/12/2018 11:04:53 PM 25mm/s 10mm/mV 150Hz 8.0 SP2 12SL 241 MATEUS: 13 Referred by: Referred Self Confirmed By: ELIZA FELDER Vent. rate 96 BPM MT interval 136 ms QRS duration 84 ms QT/QTc 372/469 ms P-R-T axes 14 1965 (53 yr) Female Room:A2 Loc:15 Tribunal Member:Muriel Kirk Test ind: Impression Assessment and Plan Pancreatic cancer/pancytopenia/neutropenia/intractable nausea and vomiting with diarrhea-- Admit to oncology suite with neutropenic precautions. Status post ERCP on 12/17/[address] 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 Underwent duodenal stent placement at [facility]. Presented to the ED and [facility] on 01/01/18 with obstruction of hepatic and gallbladder ducts, and then transferred to [facility]. Then underwent transhepatic biliary stent placement. She underwent port placement by Dr. Jamari Pérez on 01/20/18. She has completed her first cycle of chemotherapy with Dr. Santana from oncology. Empiric broad-spectrum antibiotics treatment with vancomycin IV and Zosyn IV. She reports having had Neulasta on February 07. Full liquid diet as tolerated until midnight, then n.p.o. Pantoprazole 40 mg IV daily. The first dose tonight. Zofran 4 mg IV every 6 hours as needed. Compazine 10 mg IV every 6 hours as needed. NSS + KCl 20 mEq at 100 mils per hour. Morphine sulfate 2 mg IV every 2 hours as needed breakthrough pain. Serial CBC with differential, chemistry profile, magnesium and lipase. Consult Dr. Suarez. Consult Dr. Santana. CT today shows significant improvement since transhepatic biliary stent placement, no current evidence for significant biliary ductal distention. Improved gallbladder with no current evidence for distention. Improved ascites with minimal residual in the pelvis. Improved peripancreatic infiltrative change. Unchanging pancreatic head/uncinate process mass. Advanced Directives Existing Advance Directive: No Existing Living Will: No Existing Power of Administrative Services Assistant: No Resuscitation Status VTE Prophylaxis Will order VTE Prophylaxis: Yes Social Service Consult Cancer Patient Under [place]
[2018-02-12] MEDS: NSS + 20MEQ KCL 1000ML 1,000 ML IV SCH (23:52)
[2018-02-13] MEDS: VANCOMYCIN IV 1,000 MG in SODIUM CHLORIDE 0.9% 250ML 250 ML IV SCH ×3 (02:07→17:30)
[2018-02-13] MEDS: PIPERACILL/TAZOBAC IV 3.375 GM in DEXTROSE 5% 100ML 100 ML IV SCH ×4 (02:08→22:20)
[2018-02-13] MEDS ORDERED: MoRPHine SULFATE 2 MG/ML CARP IV PRN (03:00)
[2018-02-13 04:00] VITALS: BP 90/59; PULSE 68; TEMP 36.3; O2SAT 97
[2018-02-13 06:34] VITALS: BMI 22.9
[2018-02-13 07:15] VITALS: BP 87/47; PULSE 67; TEMP 36.3; O2SAT 97
[2018-02-13] MEDS: NSS + 20MEQ KCL 1000ML 1,000 ML IV SCH ×2 (08:07→23:28)
[2018-02-13 08:27] LABS: INR 1.4 (0.9-1.1); PTT PATIENT 28.2 SECONDS (21.0-31.0)
[2018-02-13] MEDS ORDERED: NURSING VERBAL MED ORDER ONE ×2 (08:45→19:15)
[2018-02-13 08:57] LABS: HEMATOCRIT 26.3 % (37-47); HEMOGLOBIN 8.8 g/dL (12.0-16.0); MEAN CELL VOLUME 85.1 fL (80-100); MEAN CORPUSCULAR HEMOGLOBIN 28.5 pg (25-34); MEAN CORPUSCULAR HGB CONC 33.5 g/dl (32-36); MEAN PLATELET VOLUME 10.6 fL (7.4-10.4); PLATELET COUNT 58 K/uL (130-400); RED CELL DISTRIBUTION WIDTH CV 14.7 % (11.5-14.5); RED CELL DISTRIBUTION WIDTH SD 45.9 fL (36.4-46.3); WHITE BLOOD COUNT 0.75 K/uL (4.8-10.8)
[2018-02-13 08:58] LABS: ALBUMIN 2.3 gm/dl (3.4-5.0); CALCIUM 8.1 mg/dl (8.5-10.1); CREATININE 0.45 mg/dl (0.60-1.20); POTASSIUM 3.8 mmol/L (3.5-5.1); TOTAL PROTEIN 6.2 gm/dl (6.4-8.2)
[2018-02-13] MEDS ORDERED: FLUCONAZOLE 100 MG TAB PO ONE (09:30)
--- NOTE | 2018-02-13 10:05 | ONCOLOGY CONSULTATION ---
DATE OF CONSULTATION: 02/13/2018 REASON FOR CONSULTATION: Locally advanced pancreatic cancer in a 53-year-old female patient with neutropenic fever. HISTORY OF PRESENT ILLNESS: Shoshana is a very pleasant 53-year-old female patient of Dr. Richard Santana's with a recent diagnosis of locally advanced pancreatic cancer. She has received 2 courses of FOLFIRINOX, which started on 01/21/2018. She received her last dose a little under a week ago according to Shoshana. Apparently last night began to have crampy lower abdominal pain with persistent nausea. She also reports a very low-grade fever. Shoshana did not contact our office and proceeded directly to the Emergency Room. Apparently, she has prior gynecologic issues and wishes to follow up with Dr. Shell as well. Shoshana around the time of diagnosis had a duodenal and biliary stents placed. On admission, her peripheral blood counts were significantly decreased across the board with a WBC count of 1160, hemoglobin 8.9, and platelet count of 64,000. She has been pancultured and started on broad-spectrum antimicrobials. Again, Shoshana was diagnosed earlier this summer after she had had epigastric pain and underwent an abdominal ultrasound. It had revealed mild dilatation of the common bile duct without an obstructing lesion or stone identified. CT of the abdomen and pelvis revealed a mass-like fullness in the pancreatic head and adjacent soft tissues. The patient underwent formal biopsy in mid December confirming a moderately differentiated adenocarcinoma favoring pancreatic primary. Again, Dr. Santana staged her as a T4, N0, M0 equivalent to stage III disease. His recommendation was to proceed with neoadjuvant chemotherapy in the hopes of surgical resection in the future. PAST MEDICAL HISTORY: Includes pancreatic cancer, prior urinary tract infection, and elevated liver function studies. MEDICATIONS: Prior to admission, Prevacid 30 mg p.o. daily, Claritin 10 mg p.o. daily, Creon 72,000 units p.o. t.i.d., Magic mouthwash p.r.n. Other p.r.n.'s include Zofran, Compazine, Ultram, and ProAir 90 two puffs inhaled q. 4 hours for wheezing. ALLERGIES: IODINE AND IV CONTRAST SOCIAL HISTORY: The patient is , lives with her family. She is employed. Nonsmoker, nondrinker. FAMILY HISTORY: Noncontributory. REVIEW OF SYSTEMS: Most notably for low-grade fever. Denies anorexia or weight loss. No skin rashes or lesions. No chills or rigors reported. HEENT: Negative for headaches, lightheadedness, or dizziness. No visual or hearing deficits. No sinus symptoms. Positive for sore throat. No dysphagia. LYMPH: No history of lymphoproliferative disease. CARDIAC: No history of coronary artery disease. No angina or palpitations. PULMONARY: Negative for COPD. No shortness of breath, dyspnea, or orthopnea. No cough or hemoptysis. GASTROINTESTINAL: As per HPI. GENITOURINARY: No hematuria, dysuria, or urinary incontinence. PSYCHIATRIC: Negative for anxiety, depression, or psychoses. ENDOCRINE: Negative for diabetes or thyroid disease. NEUROLOGIC: Negative for seizure, stroke, or migraine headache. HEMATOLOGIC: Positive for pancytopenia. PHYSICAL EXAMINATION: GENERAL: Very pleasant, well-nourished 53-year-old female patient, awake, alert, and appropriate, in no acute distress. VITAL SIGNS: Temperature 36.3, pulse 67, respiratory rate 16, blood pressure 87/47. SKIN: Warm, dry, noncyanotic without petechiae, rash, or ecchymosis. HEENT: Head is atraumatic, normocephalic. Eyes: PERRLA, EOMI. Sclerae nonicteric. Nares are patent without rhinorrhea or discharge. Throat: Punctate white lesions in the posterior pharynx consistent with oral candidiasis. NECK: Supple. LYMPH: No supraclavicular or axillary palpable nodes. She does have prominent upper cervical lymph nodes bilaterally, most likely reactive. HEART: Regular rate and rhythm. No clicks, rubs, murmurs, or gallops LUNGS: Clear to auscultation bilaterally. ABDOMEN: Soft, nontender, nondistended. No rigidity or guarding. No palpable hepatosplenomegaly. EXTREMITIES: Musculoskeletal strength and pulses are equal in all 4 quadrants. No clubbing, cyanosis, or edema. NEUROLOGICALLY: She is awake, alert, and oriented x3. Cranial nerves are intact. LABORATORY DATA: Sodium 130, potassium 3.6, chloride 94, carbon dioxide 23, creatinine 0.3. Peripheral blood counts as per HPI. IMAGING: A CT of the abdomen and pelvis, unchanging pancreatic head, uncinate process mass, improved exam post-hepatic biliary stent placement, improved gallbladder with no evidence for distention, improved ascites with no residual fluid in the pelvis, improved peripancreatic change. IMPRESSION: 1. Nausea and vomiting. 2. Oral candidiasis. 3. Locally advanced pancreatic cancer. 4. Abdominal pain/cramping. PLAN: Shoshana is a pleasant 53-year-old patient of Dr. Richard Santana'candlearia, recently diagnosed with locally advanced pancreatic cancer in the midst of receiving combination FOLFIRINOX chemotherapy. Her last dose was administered little less than a week ago. She had developed abdominal pain and low-grade fever, prompting her visit to the Emergency Room. Clearly, her peripheral blood counts have been profoundly affected by her current dose and we will defer to Dr. Santana regarding appropriate adjustment moving forward. She did receive Neulasta after her last course and will give her another 24 hours before adding Neupogen if her granulocyte recovery is sluggish. I took the liberty of ordering 200 mg of oral Diflucan today and 100 mg p.o. daily for the next 7 days to ameliorate thrush. She does not require transfusional support at this time. Would continue broad spectrum antibiotics and monitor blood cultures for growth and sensitivity. I have nothing further to add. Continue supportive care as prescribed. We will continue to follow her periodically during hospital stay and ensure she is seen expediently in medical oncology clinic upon discharge. Thank you very much for assisting us in the care of this very pleasant young lady.
[2018-02-13] MEDS: PANTOprazole INJ 40 MG in SYRINGE 0 ML IV SCH (10:30)
[2018-02-13 11:15] VITALS: BP 88/51; PULSE 68; TEMP 36.5; O2SAT 96
[2018-02-13 12:54] VITALS: BMI 22.9
--- NOTE | 2018-02-13 14:58 | DIAGNOSTIC IMAGING REPORT ---
GI SERIES W/O KUB CLINICAL HISTORY: Assess duodenal stent patency COMPARISON STUDY: CT 01/01/2018 FLUOROSCOPY TIME: 2.4 minutes. FINDINGS: Patient initiates swallowing function well. The esophagus is normal in course and caliber. A duodenal stent is in position. Flow through the stent is somewhat slow but the stent or less is patent. There is flow to the third portion as well as fourth portion of duodenal sweep. IMPRESSION: 1. The duodenal stent is patent with flow through the stent to the proximal small bowel demonstrated. 2. Common bile duct stent in generally good position. 3. Unremarkable esophagus and swallowing function. The above report was generated using voice recognition software. It may contain grammatical, syntax or spelling errors. Electronically signed by: Jimmy Sellers M.D. 02/13/2018 2:57 PM Dictated Date/Time: 02/13/2018 2:54 PM
[2018-02-13 15:34] VITALS: BP 94/61; PULSE 79; TEMP 36.7; O2SAT 97
[2018-02-13] MEDS ORDERED: PANCREAZE (LIPASE 10,500U) CAP PO PRN (16:45)
[2018-02-13] MEDS: PANCREAZE (LIPASE 10,500U) CAP PO SCH (17:51)
--- NOTE | 2018-02-13 18:08 | GASTROINTESTINAL CONSULTATION ---
DATE OF CONSULTATION: 02/13/2018 GASTROINTESTINAL CONSULT NOTE REASON FOR EVALUATION: Abdominal pain, vomiting, and pancreatic cancer. HISTORY OF PRESENT ILLNESS: The patient is a 53 year-old who was diagnosed with a T4 cancer of the pancreas in the head in December. Her disease is extensive, but not metastatic. She presented with difficulty with nausea, vomiting, anorexia and early satiety. At the time of her diagnosis, she had an endoscopic ultrasound with biopsy that showed adenocarcinoma with a duodenal obstruction. They were unable to access the second portion of the duodenum and she ended up having a percutaneous biliary stent placed at [place] and a duodenal stent at [facility]. These were tolerated well and she subsequently had an Infusaport placed by Dr. Pérez on 01/20/2018. She has received 2 courses of chemotherapy, the second one just a couple of days ago. She is currently having nausea, vomiting, abdominal pain and admission laboratory work shows pancytopenia with severe neutropenia. Aleman culturing has been obtained and she has been started on broad spectrum antibiotics. The question is whether or not her duodenum has become obstructed and that is causing her vomiting. PAST MEDICAL HISTORY: Remarkable for pancreatic cancer. MEDICATIONS: Prevacid, Claritin, Creon, Zofran as needed, tramadol as needed. ALLERGIES: IODINE. FAMILY HISTORY: Noncontributory. SOCIAL HISTORY: The patient is . She has 2 sons. She does not smoke, does not drink any alcohol. REVIEW OF SYSTEMS: Positive for nausea and some epigastric pain. PHYSICAL EXAMINATION: GENERAL: Patient appears in no acute distress. VITAL SIGNS: Blood pressure is 106/64, pulse is 75. ABDOMEN: Shows a percutaneous biliary drain in the right flank. There is some fullness in the epigastric area which is slightly tender. She is not visibly jaundiced. IMPRESSION AND PLAN: The patient has nausea and vomiting with a history of duodenal obstruction with a stent placed. It is possible the stent could be obstructed again or displaced, based on her CAT scan looks to be in good position, but I plan on getting an upper GI to see if it is patent. If so, then her diet can be advanced. In that case, the nausea and vomiting may be an effect from her chemotherapy. MTDD
[2018-02-13 20:02] VITALS: BP 97/66; PULSE 97; TEMP 36.3; O2SAT 97
--- NOTE | 2018-02-13 22:12 | Hospitalist Progress Note ---
Hospitalist Progress Note Date of Service Feb 13, 2018. Subjective Pt evaluation today including: conversation w/ patient, physical exam, chart review, lab review, review of studies, conversation w/ health management consultant (Dr. Quezada), review of inpatient medication list Patient seen and evaluated. Admitted for nausea/vomiting. Patient had a recent course of chemotherapy and states during her last session she had similar symptoms but this was more severe. Thankfully she quickly improved with IV hydration and anti-emetics. However the counts are rather low and she is neutropenic but reports feeling well. She did undergo Neulasta treatment so will monitor for improvement and like is just hitting dillon. UGI shows patent stent in the duodenum but does have slow transmission. It appears her symptoms are likely chemo induced She was found to also have thrush and was started on Diflucan. Constitutional: No fever, No chills ENT: No sore throat, No trouble swallowing Respiratory: No cough, No shortness of breath Cardiovascular: No chest pain Abdomen: No pain, No nausea, No vomiting, No diarrhea, No constipation Musculoskeletal: No swelling, No calf pain Female : No dysuria Heme: No abnormal bleeding/bruising Skin: No rash Medications Current Inpatient Medications Medications (Trade) Dose Ordered Sig/Rae Route Start Time Stop Time Status Last Admin Dose Admin Ioversol (Optiray 320) 100 ml UD PRN IV 02/12/18 17:45 02/16/18 17:44 Acetaminophen (Tylenol Tab) 650 mg Q4H PRN PO 02/12/18 21:30 03/14/18 21:29 Potassium Chloride/Sodium Chloride 1,000 ml @ 100 mls/hr Q10H IV 02/12/18 23:00 03/14/18 22:59 02/13/18 08:07 100 MLS/HR Vancomycin HCl (Consult) 1 ea UD PRN N/A 02/12/18 21:45 03/14/18 21:44 Miscellaneous Information (Consult) 1 ea UD PRN N/A 02/12/18 21:45 03/14/18 21:44 Ondansetron HCl (Zofran Inj) 4 mg Q6H PRN IV 02/12/18 21:45 03/14/18 21:44 02/13/18 19:13 4 MG Diphenhydramine HCl (Benadryl Inj) 25 mg Q4H PRN IV 02/12/18 21:45 03/14/18 21:44 Acetaminophen 100 ml @ 400 mls/hr Q8H PRN IV 02/12/18 21:45 03/14/18 21:44 Prochlorperazine Edisylate 10 mg/ Syringe 10 ml @ 5 mls/min Q6H PRN IV 02/12/18 22:15 03/14/18 22:14 Vancomycin HCl 1000 mg/Sodium Chloride 270 ml @ 125 mls/hr Q8H IV 02/13/18 02:00 02/22/18 21:59 02/13/18 17:30 125 MLS/HR Pantoprazole Sodium 40 mg/ Syringe 10 ml @ 5 mls/min DAILY@11 IV 02/13/18 11:00 03/15/18 10:59 02/13/18 10:30 5 MLS/MIN Heparin Sodium (Porcine) (Heparin 100 Unit/ml 5ml Flush) 5 ml PRN PRN IV 02/12/18 23:30 03/14/18 23:29 Morphine Sulfate (MoRPHine SULFATE INJ) 2 mg Q2H PRN IV 02/13/18 03:00 02/27/18 02:59 Fluconazole (Diflucan Tab) 100 mg DAILY PO 02/14/18 08:00 02/20/18 08:01 Piperacillin Sod/ Tazobactam Sod 3.375 gm/Dextrose 115 ml @ 28.75 mls/ hr Q8H IV 02/13/18 14:00 02/14/18 23:59 02/13/18 14:04 28.75 MLS/HR Amylase/Lipase/ Protease (Pancreaze (Lipase 10,500U) Cap) 7 cap TIDM PO 02/13/18 17:00 03/15/18 16:59 Amylase/Lipase/ Protease (Pancreaze (Lipase 10,500U) Cap) 3 cap UD PRN PO 02/13/18 16:45 03/15/18 16:44 Objective Vital Signs Date Time Temp Pulse Resp B/P (MAP) Pulse Ox O2 Delivery O2 Flow Rate FiO2 02/13/18 20:02 36.3 97 18 97/66 (76) 97 Room Air 02/13/18 16:15 Room Air 02/13/18 15:34 36.7 79 18 94/61 (72) 97 Room Air 02/13/18 11:15 36.5 68 18 88/51 (63) 96 Room Air 02/13/18 08:55 Room Air 02/13/18 07:15 36.3 67 16 87/47 (60) 97 Room Air 02/13/18 04:00 36.3 68 18 90/59 (69) 97 Room Air 02/13/18 03:59 Room Air 02/12/18 22:35 36.8 78 16 97/65 97 Room Air Physical Exam General Appearance: WD/WN, no apparent distress Eyes: sclerae normal ENT: hearing grossly normal Neck: supple, no JVD, trachea midline Respiratory/Chest: lungs clear, normal breath sounds, no respiratory distress, no accessory muscle use Cardiovascular: regular rate, rhythm, no gallop, no murmur Abdomen: normal bowel sounds, non tender, soft, + pertinent finding (biliary stent in RUQ with bile drainage) Extremities: no pedal edema Neurologic/Psychiatric: alert, normal mood/affect, oriented x 3 Skin: normal color, warm/dry Laboratory Results Last 24 Hours Test 02/13/18 08:02 White Blood Count 0.75 K/uL Red Blood Count 3.09 M/uL Hemoglobin 8.8 g/dL Hematocrit 26.3 % Mean Corpuscular Volume 85.1 fL Mean Corpuscular Hemoglobin 28.5 pg Mean Corpuscular Hemoglobin Concent 33.5 g/dl Platelet Count 58 K/uL Mean Platelet Volume 10.6 fL RDW Standard Deviation 45.9 fL RDW Coefficient of Variation 14.7 % Neutrophils % (Manual) 17.6 % Lymphocytes % (Manual) 57.7 % Monocytes % (Manual) 24.7 % Neutrophils # (Manual) 0.13 K/uL Total Absolute Neutrophils 0.13 K/uL Lymphocytes # (Manual) 0.43 K/uL Total Absolute Lymphocytes 0.43 K/uL Monocytes # (Manual) 0.19 K/uL Toxic Granulation 1+ Dohle Bodies 2+ Large Platelets 3+ Prothrombin Time 14.2 SECONDS Prothromb Time International Ratio 1.4 Activated Partial Thromboplast Time 28.2 SECONDS Partial Thromboplastin Ratio 1.1 Sodium Level 138 mmol/L Potassium Level 3.8 mmol/L Chloride Level 108 mmol/L Carbon Dioxide Level 24 mmol/L Anion Gap 6.0 mmol/L Blood Urea Nitrogen 8 mg/dl Creatinine 0.45 mg/dl Est Creatinine Clear Calc Drug Dose 154.6 ml/min Estimated GFR () 134.5 Estimated GFR (Non- 116.0 BUN/Creatinine Ratio 17.2 Random Glucose 117 mg/dl Calcium Level 8.1 mg/dl Magnesium Level 2.3 mg/dl Total Bilirubin 1.5 mg/dl Direct Bilirubin 1.1 mg/dl Aspartate Amino Transf (AST/SGOT) 17 U/L Alanine Aminotransferase (ALT/SGPT) 36 U/L Alkaline Phosphatase 170 U/L Total Protein 6.2 gm/dl Albumin 2.3 gm/dl Lipase 75 U/L Assessment and Plan Intractable Nausea/Vomiting/Diarrhea 2/2 Chemotherapy: - She is S/P Duodenal stent and transhepatic biliary stent placement - UGI confirms patency of stent but slow trasition but likely not the underlying cause of her presentation -- CT shows improvement in abdominal findings since stent placement - Will continue Vanc/Zosyn for now but suspect this can be stopped as likely GI infection is not the cause of her presentation - Continue IVF; Zofran and Compazine PRN - Continue pancreatic enzymes and advance to regular diet - patient reports eating a pureed diet - Consult GI - discussed with Dr. Quezada - appreciate assistance Pancytopenia/Neutropenia 2/2 Chemotherapy for Pancreatic CA: - Maintain neutropenic precautions and continue to trend - she did receive Neulasta - Consult Oncology - appreciate recommendations - plan to trend counts and consider Neupogen if counts do not improve Oral Thrush: - Diflucan 200 mg x 1 dose then 100 mg daily x 7 days DVT Prophylaxis: SCDs due to pancytopenia Code Status: FULL RESUSCITATION Disposition: Home with services Continued [facility] stay due to: multiple IV medications needed Discharge planning: home with home health
[2018-02-13 23:55] VITALS: BP 92/53; PULSE 78; TEMP 36.8; O2SAT 97
[2018-02-14] MEDS: VANCOMYCIN IV 1,000 MG in SODIUM CHLORIDE 0.9% 250ML 250 ML IV SCH (01:54)
[2018-02-14 04:12] VITALS: BP 96/63; PULSE 68; TEMP 36.5; O2SAT 96
[2018-02-14] MEDS: PIPERACILL/TAZOBAC IV 3.375 GM in DEXTROSE 5% 100ML 100 ML IV SCH (05:36)
[2018-02-14 06:01] LABS: INR 1.4 (0.9-1.1); PTT PATIENT 26.8 SECONDS (21.0-31.0)
[2018-02-14 06:04] LABS: HEMATOCRIT 26.8 % (37-47); HEMOGLOBIN 8.9 g/dL (12.0-16.0); MEAN CORPUSCULAR HEMOGLOBIN 28.9 pg (25-34); MEAN CORPUSCULAR HGB CONC 33.2 g/dl (32-36); MEAN PLATELET VOLUME 10.5 fL (7.4-10.4); NUCLEATED RED BLOOD CELL ABS 0.06 K/uL (0-0); PLATELET COUNT 95 K/uL (130-400); RED CELL DISTRIBUTION WIDTH CV 15.4 % (11.5-14.5); RED CELL DISTRIBUTION WIDTH SD 48.8 fL (36.4-46.3); WHITE BLOOD COUNT 3.14 K/uL (4.8-10.8)
[2018-02-14 06:29] LABS: ALBUMIN 2.1 gm/dl (3.4-5.0); CALCIUM 7.4 mg/dl (8.5-10.1); CREATININE 0.62 mg/dl (0.60-1.20); POTASSIUM 3.8 mmol/L (3.5-5.1)
[2018-02-14 06:31] LABS: TOTAL PROTEIN 5.9 gm/dl (6.4-8.2)
[2018-02-14 06:38] VITALS: Ht 175.3 cm; Wt 73.7 kg
[2018-02-14 07:10] VITALS: BP 96/73; PULSE 73; TEMP 36.3; O2SAT 96
[2018-02-14] MEDS: PANCREAZE (LIPASE 10,500U) CAP PO SCH ×2 (08:00→11:29)
[2018-02-14] MEDS ORDERED: FLUCONAZOLE 100 MG TAB PO SCH (08:00)
[2018-02-14] MEDS: NSS + 20MEQ KCL 1000ML 1,000 ML IV SCH (08:17)
[2018-02-14] MEDS: PANTOprazole INJ 40 MG in SYRINGE 0 ML IV SCH (08:17)
[2018-02-14] MEDS ORDERED: NURSING VERBAL MED ORDER ONE (08:30)
[2018-02-14] MEDS ORDERED: ONDANSETRON 8 MG TAB PO PRN (09:00)
[2018-02-14] MEDS ORDERED: DEXAMETHASONE 4 MG TAB PO PRN (09:00)
--- NOTE | 2018-02-14 09:17 | Discharge Instructions ---
Discharge Instructions Date of Service Feb 14, 2018. Admission Reason for Admission: Pancreatic Cancer,Pancytopenia Due To Chemotherapy Discharge Discharge Diagnosis / Problem: Nausea/Vomiting from Chemotherapy Discharge Goals Goal(s): Decrease discomfort, Improve function, Increase independence Activity Recommendations Activity Limitations: resume your previous activity . Instructions / Follow-Up Instructions / Follow-Up Nausea/Vomiting/Diarrhea Likely from Chemotherapy: - Thankfully your CT of the abdomen shows improvement since your stents have been placed. The biliary duct is not distended, the gallbladder is not distended , the fluid in the pelvix is improved, and the inflammation in the pancreas is improved. - Your symptoms appear to be related to your chemotherapy and should continue to improve - Will make some adjustments to your nausea medication to hopefully get better control of this -- Will give you a prescription for Zofran 8 mg as needed for nausea. Can temporarily use Decadron (this is a steroid) to help control this. It may even help to take a Zofran before your chemotherapy treatment to help prevent nausea. Would check to see if you get pre-treatment with steroids with your chemotherapy before using the Decadron -- Continue to use Compazine as needed as well for nausea Weight Loss: - Unfortunately chemotherapy and illness in general can make eating more difficult. Recommend to try and keep your protein intake high. If it is tolerated you can try some of the supplemental drinks to get more calories - Your duodenum (small intestine) stent is open but food can take longer to pass through this area so eating more frequently throughout the day may help because food that sits in the stomach longer may make your feel mahajan longer. - Getting established with a bonderite operator or custodian supervisor may be helpful to help improve your intake while you are undergoing treatment. Low Blood Counts: - This is expected with the chemotherapy you are on. A lot of the time you hit a dillon (kind of the bottom of the treatment) then the counts start to climb. It looks like you probably hit this yesterday and your counts are improving. - Recommend to keep your appointment on Saturday for blood work to make sure they keep going up. - Follow-up with Dr. Santana as previously planned Thrush: - Will continue Diflucan 100 mg daily until February 20 Current Hospital Diet Patient's current hospital diet: Regular Diet Discharge Diet Recommended Diet: Regular Diet Pending Studies Studies pending at discharge: no Medical Emergencies . Who to Call and When: Medical Emergencies: If at any time you feel your situation is an emergency, please call 911 immediately. . Non-Emergent Contact Non-Emergency issues call your: Primary Care Provider Call Non-Emergent contact if: you have a fever, your pain is concerning you, you have any medication questions . . "Provider Documentation" section prepared by Aracely Nassar. . [place] Drug Monitoring Program Search Results: patient reviewed within database, no issues identified
--- NOTE | 2018-02-14 09:25 | HEME/ONC PROGRESS NOTE ---
DATE: 02/14/2018 DIAGNOSES: 1. Nausea and vomiting. 2. Oral candidiasis. 3. Neutropenic fever. 4. Locally advanced pancreatic cancer. SUBJECTIVE: Shoshana was seen and examined at bedside this morning. Clinically, she seems much brighter and feels better; however, does continue to have some mild nausea. Suggest nursing adding dexamethasone with Zofran dose for a synergistic action. The patient's oral candidiasis has improved significantly. She seems to be tolerating her diet and is moving her bowels. Shoshana's peripheral blood counts have also shown improvement. Nursing reports no overnight difficulties. PHYSICAL EXAMINATION: GENERAL: A 53-year-old female, in no acute distress. VITAL SIGNS: Temperature 36.3, pulse 73, respiratory rate 16, blood pressure 96/73. HEENT: Oral mucosa again white punctate lesions are gone. NECK: Supple. HEART: Regular rate and rhythm. LUNGS: Clear to auscultation bilaterally. ABDOMEN: Soft, nontender, nondistended. EXTREMITIES: No clubbing, cyanosis, or edema. NEUROLOGIC: Grossly intact. LABORATORY DATA: WBC count 3140, hemoglobin 8.9, platelet count 95,000. Sodium 141, potassium 3.8, chloride 114, carbon dioxide 23, creatinine 0.62, BUN 7. Albumin 2.1. LFTs within normal limits. IMPRESSION: 1. Nausea and vomiting. 2. Neutropenic fever. 3. Locally advanced pancreatic cancer. 4. Hypoalbuminemia. 5. Oral candidiasis. PLAN: Shoshana is a pleasant 53-year-old patient of Dr. Richard Santana's with locally advanced pancreatic cancer, receiving FOLFIRINOX chemotherapy. Clinically, she has made strides in the last 24 hours; however, has residual mild nausea. I see no reason as she continues to improve, she cannot be discharged later on today or at the latest tomorrow morning. She needs to work on her protein intake to improve albumin. I do not feel she needs antimicrobials on discharge as cultures thus far have been negative. Shoshana should be seen by Dr. Santana prior to commencing further chemotherapy and I suspect he may consider dose reduction moving forward. I have nothing further to add at this point. I will officially sign off anticipating her discharge within the next 24 hours. Thank you very much for assisting us in the care of this very pleasant young lady.
[2018-02-14] MEDS ORDERED: VANCOMYCIN TROUGH ONE (09:30)
[2018-02-14 10:51] VITALS: BP 96/73; PULSE 73; TEMP 36.3; O2SAT 96
[2018-02-14 11:33] VITALS: BP 98/66; PULSE 83; TEMP 36.3; O2SAT 98
[2018-02-14] MEDS ORDERED: PANT40TA2 PO (14:34)
[2018-02-14] MEDS ORDERED: DFL100 PO (14:34)
[2018-02-14] MEDS ORDERED: ZFR8 PO (14:34)
[2018-02-14] MEDS ORDERED: TRAM-10 PO (14:34)
[2018-02-14] MEDS ORDERED: DXM4 PO (14:34)
--- NOTE | 2018-02-14 18:38 | Discharge Summary ---
Discharge Summary Date of Service Feb 14, 2018. Discharge Summary Admission Date: Feb 12, 2018 at 21:28 Discharge Date: Feb 14, 2018 Discharge Disposition: Home with services Principal Diagnosis: Nausea/Vomiting due to Chemotherapy Problems/Secondary Diagnoses: 1. Pancreatic CA 2. S/P Biliary Stent 3. S/P Duodenal Stent Immunizations: Have You Had Influenza Vaccine: Unknown History of Tetanus Vaccine?: Unknown History of Pneumococcal: Unknown History of Hepatitis B Vaccine: Unknown Procedures: ABD/PELVIS IV CONTRAST ONLY FINDINGS: Interval placement of a transhepatic biliary drain. This appears to be in appropriate position. The stent previously described is unchanged. Lung bases are clear. There is trace amount of the biliary ductal air considered unremarkable given the stent placements as noted. The peripancreatic infiltrative change present described as diminished. Masslike process lesion the pancreatic head and uncinate process is similar. The infiltrative change of the peripancreatic region in this location appears stable. The distended gallbladder in the prior study is no longer present. The bowel pattern is considered nonobstructive throughout. There is a trace amount of infiltrative change of the paracolic gutters but this is improved. There is a small amount of pelvic ascites diminished and/or improved from the prior study. Uterus is anteflexed. Bladder is midline. IMPRESSION: 1. Improved exam post transhepatic biliary stent placement. 2. No current evidence for significant biliary ductal distention. 3. Improved gallbladder with no current evidence for distention. 4. Improved ascites with minimal residual in the pelvis. 5. Improved peripancreatic infiltrative change 6. Unchanging pancreatic head/uncinate process mass. GI SERIES W/O KUB FINDINGS: Patient initiates swallowing function well. The esophagus is normal in course and caliber. A duodenal stent is in position. Flow through the stent is somewhat slow but the stent or less is patent. There is flow to the third portion as well as fourth portion of duodenal sweep. IMPRESSION: 1. The duodenal stent is patent with flow through the stent to the proximal small bowel demonstrated. 2. Common bile duct stent in generally good position. 3. Unremarkable esophagus and swallowing function. Consultations: 1. Hematology/Oncology 2. Gastroenterology Medication Reconciliation New Medications: Dexamethasone (Dexamethasone) 4 Mg Tab 4 MG PO Q8H PRN for Nausea for 7 Days, #21 TAB Fluconazole (Fluconazole) 100 Mg Tab 100 MG PO DAILY for 6 Days, #6 TAB Start on 02/15. Ondansetron (Ondansetron HCl) 8 Mg Tab 8 MG PO Q8H PRN for Nausea for 30 Days, #90 TAB Pantoprazole (Pantoprazole Sodium) 40 Mg Tab 40 MG PO DAILY for 30 Days, #30 TAB Continued Medications: Lansoprazole (Prevacid) 30 Mg Capcr 30 MG PO QAM, CAP Loratadine (Claritin) 10 Mg Tab 10 MG PO DAILY, TAB Pancrelipase (Lipase-Protease- (Creon) 1 Cap Cap 55302 UNITS PO TIDM 59685 UNITS PO WITH SNACKS Prochlorperazine Maleate (Compazine) 10 Mg Tab 10 MG PO Q6H PRN for Nausea or Vomiting, TAB Tramadol (Ultram) 50 Mg Tab 50 MG PO Q4H PRN for Pain for 14 Days, #56 TAB (This prescription has been renewed) [Folfirinox] () 1 DOSE IV UD [Magic Mouthwash] () 1 DOSE PO PRN [Proair 90 Base] () 2 PUFF INH Q4 PRN for Wheezing Discontinued Medications: Ondansetron Hcl (Zofran) 4 Mg Tab 4 MG PO Q6 PRN for Nausea, TAB Discharge Exam REVIEW OF SYSTEMS Constitutional: No fever, No chills ENT: No sore throat, No trouble swallowing Respiratory: No cough, No shortness of breath Cardiovascular: No chest pain Abdomen: No pain, No nausea, No vomiting, No diarrhea, No constipation Musculoskeletal: No swelling, No calf pain Female : No dysuria Heme: No abnormal bleeding/bruising Skin: No rash PHYSICAL EXAM General Appearance: WD/WN, no apparent distress Eyes: sclerae normal ENT: hearing grossly normal Neck: supple, no JVD, trachea midline Respiratory/Chest: lungs clear, normal breath sounds, no respiratory distress, no accessory muscle use Cardiovascular: regular rate, rhythm, no gallop, no murmur Abdomen: normal bowel sounds, non tender, soft, + pertinent finding (biliary stent in RUQ with bile drainage) Extremities: no pedal edema Neurologic/Psychiatric: alert, normal mood/affect, oriented x 3 Skin: normal color, warm/dry Hospital Course ADMISSION: The patient is a 53-year-old female with a recent diagnosis of pancreatic cancer, having completed the first cycle of chemotherapy, who presents to the emergency department with persistent nausea and vomiting that began earlier in the day today. She has had lower crampy abdominal discomfort, for which she is also seeing Dr. Shell from [employer] with concern that it is due to a fibroid. Her pain did resolve overnight with tramadol. When she woke up this morning, the pain was more sharp in her upper abdomen epigastric area. She has had duodenal stent and biliary stent placement, and her initial ERCP was performed by Dr. treviño so here on 12/17/17, and underwent surgery by Dr. Jamari Pérez on 01/20/18. She called Dr. kamila Kuo's office, and she was concerned that the stent has moved, and he told her to come to the emergency department for assessment. Patient also has loose stools, a dry throat, and intermittent low-grade fever up to a max of 99. HOSPITAL COURSE: Intractable Nausea/Vomiting/Diarrhea 2/2 Chemotherapy: - She is S/P Duodenal stent and transhepatic biliary stent placement - UGI confirms patency of stent but slow transition but likely not the underlying cause of her presentation -- CT shows improvement in abdominal findings since stent placement - She had empiric Zosyn/Vanc but BCx are NGTD and no underlying etiology for infection - Zofran increased to 8 mg PRN with Compazine for breakthrough; Rx given for Dexamethasone PRN for nausea per oncology recommendations - Renewed her Tramadol - GI and Heme/Onc evaluated Pancytopenia/Neutropenia 2/2 Chemotherapy for Pancreatic CA: - Maintain neutropenic precautions and continue to trend - she did receive Neulasta - Counts are improving on her own and she feels well. Still neutropenic at 0.75 and WBC at 3.14, Hgb 8.9, and platelets 95 Oral Thrush: - Diflucan 200 mg x 1 dose then 100 mg daily x 7 days Code Status: FULL RESUSCITATION Disposition: Home with services - F/U with Dr. Santana on Saturday with lab draw - Discussed possible establishment with Dr. Chau for pain management element while undergoing therapy Total Time Spent: Greater than 30 minutes This includes examination of the patient, discharge planning, medication reconciliation, and communication with other providers. Discharge Instructions Please refer to the electronic Patient Visit Report (Discharge Instructions) for additional information. Additional Copies To Dottie Gaines PA-C; Richard Santana MD; Hammad Mathis M.D.
[2018-02-15] MEDS ORDERED: PANTOprazole SOD 40 MG TAB PO SCH (08:00)
== END 2018-02-14 15:03 | disposition home health service (06) | DRG 809 ==
LOC: C.EDB 17:18 → C.4E 21:28 → UNDOADMIN 21:28 → ENRESERV 21:40
PROVIDERS: ADMIT Hospitalist; ATTEND Hospitalist
DX: D61.811 Other drug-induced pancytopenia (principal); E87.1 Hypo-osmolality and hyponatremia; C25.0 Malignant neoplasm of head of pancreas; T45.1X5A Adverse effect of antineoplastic and immunosuppressive drugs, initial encounter; B37.0 Candidal stomatitis; E86.0 Dehydration; E88.09 Other disorders of plasma-protein metabolism, not elsewhere classified; D25.9 Leiomyoma of uterus, unspecified; Y92.009 Unspecified place in unspecified non-institutional (private) residence as the place of occurrence of the external cause

== ENCOUNTER → 2018-02-17 | Outpatient (CLI) | payer OTHER ==
[~2018-02-17] MED LIST changes: +ALBUTEROL INH; +CLR10 PO; -DESL1TAB5 PO; +DFL100 PO; +DXM4 PO; -HYDR-5688 PO; +MAGIC MOUTHWASH PO; -ONDA4TAB46 PO; +PANT40TA2 PO; +PROC10TA PO; -VNTHFA/IN INH; +ZFR8 PO; +[UNRECOGNIZED DRUG - MIXTURE] IV
[2018-02-17 15:42] LABS: HEMATOCRIT 28.3 % (37-47); HEMOGLOBIN 9.3 g/dL (12.0-16.0); MEAN CELL VOLUME 87.3 fL (80-100); MEAN CORPUSCULAR HEMOGLOBIN 28.7 pg (25-34); MEAN CORPUSCULAR HGB CONC 32.9 g/dl (32-36); MEAN PLATELET VOLUME 10.2 fL (7.4-10.4); NUCLEATED RED BLOOD CELL ABS 0.09 K/uL (0-0); PLATELET COUNT 112 K/uL (130-400); RED CELL DISTRIBUTION WIDTH CV 16.6 % (11.5-14.5); RED CELL DISTRIBUTION WIDTH SD 51.1 fL (36.4-46.3); WHITE BLOOD COUNT 14.58 K/uL (4.8-10.8)
[2018-02-17 16:17] LABS: ALBUMIN 2.4 gm/dl (3.4-5.0); ALKALINE PHOSPHATASE 233 U/L (45-117); ALT/SGPT 45 U/L (12-78); AST/SGOT 29 U/L (15-37); BLOOD UREA NITROGEN 5 mg/dl (7-18); CALCIUM 8.2 mg/dl (8.5-10.1); CARBON DIOXIDE 24 mmol/L (21-32); CREATININE 0.54 mg/dl (0.60-1.20); GLUCOSE 111 mg/dl (70-99); POTASSIUM 3.2 mmol/L (3.5-5.1); SODIUM 133 mmol/L (136-145); TOTAL PROTEIN 6.4 gm/dl (6.4-8.2)
== END | disposition home or self-care (01) ==
LOC: C.LABSPEC 15:09
PROVIDERS: ATTEND Internal Medicine Hematology & Oncology
DX: C25.9 Malignant neoplasm of pancreas, unspecified (principal)

== ENCOUNTER → 2018-03-03 | Outpatient (CLI) | payer OTHER ==
[2018-03-03 10:11] LABS: BASO % 0.3 %; BASO ABS # 0.03 K/uL (0-0.2); EOS % 0.1 %; EOS ABS # 0.01 K/uL (0-0.5); HEMATOCRIT 31.4 % (37-47); HEMOGLOBIN 10.3 g/dL (12.0-16.0); IG# 0.43 K/uL (0.00-0.02); LYMPH % 18.5 %; MEAN CELL VOLUME 86.5 fL (80-100); MEAN CORPUSCULAR HEMOGLOBIN 28.4 pg (25-34); MEAN CORPUSCULAR HGB CONC 32.8 g/dl (32-36); MEAN PLATELET VOLUME 9.8 fL (7.4-10.4); MONO % 13.6 %; MONO ABS # 1.25 K/uL (0.11-0.59); NEUT % 62.8 %; NEUT ABS # 5.76 K/uL (1.4-6.5); NUCLEATED RED BLOOD CELL ABS 0.04 K/uL (0-0); PLATELET COUNT 205 K/uL (130-400); RED CELL DISTRIBUTION WIDTH CV 17.7 % (11.5-14.5); RED CELL DISTRIBUTION WIDTH SD 54.4 fL (36.4-46.3); WHITE BLOOD COUNT 9.18 K/uL (4.8-10.8)
[2018-03-03 10:34] LABS: ALBUMIN 2.6 gm/dl (3.4-5.0); ALKALINE PHOSPHATASE 281 U/L (45-117); ALT/SGPT 42 U/L (12-78); AST/SGOT 21 U/L (15-37); BLOOD UREA NITROGEN 7 mg/dl (7-18); CALCIUM 8.2 mg/dl (8.5-10.1); CARBON DIOXIDE 20 mmol/L (21-32); CREATININE 0.55 mg/dl (0.60-1.20); GLUCOSE 103 mg/dl (70-99); POTASSIUM 3.1 mmol/L (3.5-5.1); SODIUM 137 mmol/L (136-145)
== END | disposition home or self-care (01) ==
LOC: C.LABSPEC 09:45
PROVIDERS: ATTEND Internal Medicine Hematology & Oncology
DX: C25.9 Malignant neoplasm of pancreas, unspecified (principal)

== ENCOUNTER 2019-02-16 09:04 | Inpatient (IN) ==
--- NOTE | 2019-02-16 09:39 | Emergency Department Note ---
History of Present Illness General Chief complaint: Constipation Stated complaint: SEVERE CONSTIPATION Time Seen by Provider: 02/16/19 09:37 History of Present Illness Maximum Pain Intensity: 10 This is a 54-year-old female that presents to the emergency department via private vehicle accompanied by 2 female with complaints of "severe constipation". She has a history of metastatic pancreatic cancer of which has last had radiation in August at [facility] and follows locally for c hemotherapy with Dr. Santana. She last took tramadol at 4 AM and then 8 AM. She had Tylenol in between. She can notes continued abdominal pain and now low back pain. While here last night she notes that she did have a catheter which helped her urinate and she went home was able to void on her own twice but now cannot pass any urine and has difficulty passing stool. She did try milk of magnesia without relief. She notes that she is passing gas which is quite painful and only small amounts of stool. Her last normal bowel movement was 3 days ago. She overall rates the pain as an 8/10. Home Medications Home Medications Medication Instructions Recorded Confirmed Type albuterol sulfate [ProAir HFA] 2 puff INHALATION Q4H PRN 04/09/18 02/16/19 History lansoprazole 30 mg PO QAM 04/09/18 02/16/19 History prochlorperazine maleate 10 mg PO Q6H PRN 04/09/18 02/16/19 History sertraline 25 mg PO DAILY 04/09/18 02/16/19 History ondansetron HCl 4 mg tablet 4 mg PO Q6H PRN tab 06/25/18 02/16/19 History tramadol 50 mg tablet 50 mg PO Q6H PRN tab 06/25/18 02/16/19 History cyanocobalamin (vitamin B-12) 1,000 mcg PO DAILY 11/05/18 02/16/19 History [Vitamin B-12] sucralfate [Carafate] 1 g PO BID PRN 12/19/18 02/16/19 History cholecalciferol (vitamin D3) 1,000 unit PO DAILY 01/12/19 02/16/19 History [Vitamin D3] desloratadine 5 mg tablet 5 mg PO DAILY PRN #90 tab 01/29/19 02/16/19 Rx dexamethasone 1 mg PO DAILY 02/15/19 02/16/19 History dicyclomine 10 - 20 mg PO UD PRN 02/15/19 02/16/19 History Allergies Allergy/AdvReac Type Severity Reaction Status Date / Time iodine Allergy Intermediate ITCHY/HIVES Verified 02/16/19 09:33 Iodinated Contrast- Oral and Allergy Unknown CONTRAST Verified 02/16/19 09:33 IV Dye MEDIA: ITCHY/HIVES Past Med/Surg History Medical History History of headache (Resolved) History of tear of ACL (anterior cruciate ligament) (Resolved) Pancreatic cancer (Chronic) Encounter for chemotherapy management (Acute) Started chemo on 01/21/18;Last chemo infusion started on 06/24/18 and will be removed on 06/26/18. 12/24/18 second round of chemo began again for four roun ds initially; probably 6 months at this point. History of stenosis of duodenum (Acute) Duodenal stent in place;Associated with pancreatic cancer;Placed by Dr. Radha Egan at [facility] Abnormal Pap smear of cervix (Chronic) Anxiety (Chronic) Asthma (Chronic) RARELY USES PRN INH Hyperlipidemia (Chronic) No meds currently Anemia GI bleed History of hyperlipidemia Surgical History History of biliary stent insertion (Acute) Associated with pancreatic cancer H/O LEEP (Resolved) History of colposcopy (Resolved) History of esophagogastroduodenoscopy (Resolved) With EUS and FNA of pancreatic lesion = pancreatic cancer diagnosis. Status post endometrial ablation (Resolved) For uterine fibroids History of ERCP History of surgery DUODENAL STENT History of surgery BILIARY DRAINAGE TUBE PLACEMENT + REMOVAL Family History Mother , 73yo Asthma Deep vein thrombosis Father , 68yo Emphysema lung Brother Work place accident Brother No problems noted. Brother No problems noted. Brother No problems noted. Brother No problems noted. Sister Deep vein thrombosis Breast cancer Sister No problems noted. Son No problems noted. Son No problems noted. 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 Other Information That Helps Us Care for You: No Feels Safe at Home: Yes Safety Concerns: Feels Safe At This Time Smoking Status: Never smoker Second Hand Exposure: No ; Hx Alcohol Use: No Hx Substance Use: No caffeine: Yes (1 cup/day) during the past year weight has: decreased > 10 lbs Review of Systems A total of 10 systems reviewed and were otherwise negative Physical Exam Vital Signs Vital Signs - 24 hr 02/16/19 09:15 02/16/19 11:25 02/16/19 13:00 Temperature 36.7 C Temperature Source Oral Sepsis Recent Fever Within 48 Hours No Sepsis Action Taken by Nursing No Action Required Pulse Rate 86 78 Pulse Rate [Right Finger] 71 Pulse Rate from SpO2 Sensor Respiratory Rate 20 20 20 Respiratory Effort / Characteristics Respiratory Depth Respiratory Pattern Blood Pressure 113/78 117/84 Blood Pressure [Right Arm] 114/66 Blood Pressure Mean 89 95 Blood Pressure Mean [Right Arm] 82 Pulse Oximetry 97 98 Oxygen Delivery Method Room Air 02/16/19 13:30 02/16/19 14:00 02/16/19 14:30 Temperature Temperature Source Sepsis Recent Fever Within 48 Hours Sepsis Action Taken by Nursing Pulse Rate 76 85 109 H Pulse Rate [Right Finger] Pulse Rate from SpO2 Sensor Respiratory Rate 16 20 21 Respiratory Effort / Characteristics Respiratory Depth Respiratory Pattern Blood Pressure 120/77 124/79 123/65 Blood Pressure [Right Arm] Blood Pressure Mean 91 94 84 Blood Pressure Mean [Right Arm] Pulse Oximetry 97 96 96 Oxygen Delivery Method Room Air Room Air Room Air 02/16/19 14:44 02/16/19 15:00 02/16/19 15:30 Temperature Temperature Source Sepsis Recent Fever Within 48 Hours Sepsis Action Taken by Nursing Pulse Rate 78 83 Pulse Rate [Right Finger] 86 Pulse Rate from SpO2 Sensor 83 Respiratory Rate 15 19 20 Respiratory Effort / Characteristics Non-Labored Spontaneous Respiratory Depth Normal Respiratory Pattern Regular Blood Pressure 112/73 114/74 Blood Pressure [Right Arm] 123/65 Blood Pressure Mean 86 87 Blood Pressure Mean [Right Arm] 84 Pulse Oximetry 98 95 96 Oxygen Delivery Method Room Air Room Air VITAL SIGNS - Vital signs and nursing notes were reviewed. Stable and afebrile. GENERAL -54-year-old female appearing her stated age who is in no acute distress. Communicates well with provider and answers questions appropriately. SKIN - Without rashes. No meningeal or petechial rash. HEAD - NC/AT. EYES - PERRL with EOMI bilaterally. Sclera anicteric. EARS - No deformities of external structures noted on gross examination bilaterally. NOSE - Midline and without cyanosis. No epistaxis or purulent drainage noted. MOUTH/OROPHARYNX - Without perioral cyanosis. NECK - No nuchal rigidity. LUNGS - Chest wall symmetric without accessory muscle use, intercostals retractions, or central cyanosis. Normal vesicular breath sounds CTA B/L. No wheezes, rales, or rhonchi appreciated. CARDIAC - RRR with S1/S2. No murmur, rubs, or gallops appreciated. ABDOMEN - Abdominal contour normal without pulsations or visible masses. BS normoactive all four quadrants. Diffuse lower abdominal tenderness on examination. The abdomen is slightly distended and firm but not rigid. No palpable masses, hepatosplenomegaly, or ascites noted. EXTREMITIES - No clubbing or peripheral cyanosis. No pretibial edema present. +5/5 strength noted in UE/LE bilaterally. NEUROLOGIC - Cranial nerves II through XII grossly intact. Sensory intact to light touch throughout. PSYCH - A&O, and cooperates fully with examiner. Pt is very pleasant and interacts well with examiner. Course Administered Medications Discontinued Medications Sodium Chloride (Nss) 500 mls @ 999 mls/hr IV .Q31M ONE Stop: 02/16/19 10:25 Last Infusion: 02/16/19 11:24 Dose: 0 mls/hr Documented by: [id number] Admin: 02/16/19 10:27 Dose: 999 mls/hr Documented by: [id number] Potassium Chloride (K Raji / Wtr) 10 meq in 100 mls @ 100 mls/hr IV ONE ONE Stop: 02/16/19 13:38 Last Infusion: 02/16/19 14:04 Dose: 0 mls/hr Documented by: [id number] Admin: 02/16/19 13:02 Dose: 100 mls/hr Documented by: [id number] Morphine Sulfate (Morphine Sulfate) 4 mg IV NOW STA Stop: 02/16/19 10:05 Last Admin: 02/16/19 10:33 Dose: 4 mg Documented by: [id number] Morphine Sulfate (Morphine Sulfate) 2 mg IV NOW STA Stop: 02/16/19 12:43 Last Admin: 02/16/19 12:53 Dose: 2 mg Documented by: [id number] Morphine Sulfate (Morphine Sulfate) 2 mg IV NOW STA Stop: 02/16/19 14:38 Last Admin: 02/16/19 14:50 Dose: 2 mg Documented by: [id number] Ondansetron HCl (Zofran) 4 mg IV NOW STA Stop: 02/16/19 10:05 Last Admin: 02/16/19 10:33 Dose: 4 mg Documented by: [id number] Ondansetron HCl (Zofran) Confirm Administered Dose 4 mg .ROUTE .STK-MED ONE Stop: 02/16/19 14:55 Last Admin: 02/16/19 14:56 Dose: 4 mg Documented by: [id number] Potassium Chloride (Klor-Con M20) 40 meq PO NOW STA Stop: 02/16/19 12:40 Last Admin: 02/16/19 12:57 Dose: 40 meq Documented by: [id number] Medical Decision Making Laboratory Data Result diagrams: 02/16/19 10:28 02/16/19 10:28 Lab Results 02/16/19 02/16/19 02/16/19 Range/Units 10:28 10:28 10:28 WBC 8.79 (4.8-10.8) K/uL RBC 2.69 L (4.2-5.4) M/uL Hgb 7.6 L (12.0-16.0) g/dL Hct 23.4 L (37-47) % MCV 87.0 (80-100) fL MCH 28.3 (25-34) pg MCHC 32.5 (32-36) g/dL RDW Std Deviation 64.5 H (36.4-46.3) fL RDW Coeff of Patrick 20.9 H (11.5-14.5) % Plt Count 79 L (130-400) K/uL MPV 10.9 H (7.4-10.4) fL Immature Gran % (Auto) 5.0 % Neut % (Auto) 78.6 % Lymph % (Auto) 4.7 % [place] % (Auto) 11.3 % Eos % (Auto) 0.1 % Baso % (Auto) 0.3 % Immature Gran # (Auto) 0.44 H (0.00-0.02) K/uL Neut # (Auto) 6.91 H (1.4-6.5) K/uL Lymph # (Auto) 0.41 L (1.2-3.4) K/uL [place] # (Auto) 0.99 H (0.11-0.59) K/uL Eos # (Auto) 0.01 (0-0.5) K/uL Baso # (Auto) 0.03 (0-0.2) K/uL Absolute Nucleated RBC 0.03 H (0-0) K/uL Nucleated RBC % (auto) 0.3 % Toxic Granulation 2+ Dohle Bodies 3+ Anisocytosis Present Tear Drop Cells Occasional Ovalocytes 1+ PT 11.9 (9.0-12.0) Seconds INR 1.2 H (0.9-1.1) APTT 30.0 (21.0-31.0) Seconds PTT Ratio 1.1 Sodium 139 (136-145) mmol/L Potassium 2.9 L (3.5-5.1) mmol/L Chloride 104 (98-107) mmol/L Carbon Dioxide 27 (21-32) mmol/L Anion Gap 7.0 (3-11) BUN 9 (7-18) mg/dl Creatinine 0.53 L (0.6-1.2) mg/dl Est Cr Clr Drug Dosing Not Reportable Est GFR ( Amer) 126.5 Est GFR (Non-Af Amer) 109.2 BUN/Creatinine Ratio 16.4 (10-20) Glucose 106 H (70-99) mg/dl Calcium 8.6 (8.5-10.1) mg/dl Magnesium 2.1 (1.8-2.4) mg/dl Total Bilirubin 0.4 (0.2-1) mg/dl AST 18 (15-37) U/L ALT 24 (12-78) U/L Alkaline Phosphatase 184 H (45-117) U/L Total Protein 6.5 (6.4-8.2) gm/dl Albumin 2.8 L (3.4-5.0) gm/dl Globulin 3.7 (2.5-4.0) gm/dl Albumin/Globulin Ratio 0.8 L (0.9-2) Lipase 23 L (73-393) U/L TSH 1.040 (0.300-4.500) uIu/ml Urine Color Urine Appearance (Clear) Urine pH (4.5-7.5) Ur Specific [place] (1.000-1.030) Urine Protein (Negative) Urine Glucose (UA) (Negative) Urine Ketones (Negative) Urine Blood (Negative) Urine Nitrite (Negative) Urine Bilirubin (Negative) Urine Urobilinogen (Negative) Ur Leukocyte Esterase (Negative) Urine WBC (Auto) (0-5) /hpf Urine RBC (Auto) (0-4) /hpf U Hyaline Cast (Auto) (0-5) /lpf U Epithel Cells (Auto) (0-5) /lpf Urine Bacteria (Auto) (Negative) 02/16/19 Range/Units 10:28 WBC (4.8-10.8) K/uL RBC (4.2-5.4) M/uL Hgb (12.0-16.0) g/dL Hct (37-47) % MCV (80-100) fL MCH (25-34) pg MCHC (32-36) g/dL RDW Std Deviation (36.4-46.3) fL RDW Coeff of Patrick (11.5-14.5) % Plt Count (130-400) K/uL MPV (7.4-10.4) fL Immature Gran % (Auto) % Neut % (Auto) % Lymph % (Auto) % [place] % (Auto) % Eos % (Auto) % Baso % (Auto) % Immature Gran # (Auto) (0.00-0.02) K/uL Neut # (Auto) (1.4-6.5) K/uL Lymph # (Auto) (1.2-3.4) K/uL [place] # (Auto) (0.11-0.59) K/uL Eos # (Auto) (0-0.5) K/uL Baso # (Auto) (0-0.2) K/uL Absolute Nucleated RBC (0-0) K/uL Nucleated RBC % (auto) % Toxic Granulation Dohle Bodies Anisocytosis Tear Drop Cells Ovalocytes PT (9.0-12.0) Seconds INR (0.9-1.1) APTT (21.0-31.0) Seconds PTT Ratio Sodium (136-145) mmol/L Potassium (3.5-5.1) mmol/L Chloride (98-107) mmol/L Carbon Dioxide (21-32) mmol/L Anion Gap (3-11) BUN (7-18) mg/dl Creatinine (0.6-1.2) mg/dl Est Cr Clr Drug Dosing Est GFR ( Amer) Est GFR (Non-Af Amer) BUN/Creatinine Ratio (10-20) Glucose (70-99) mg/dl Calcium (8.5-10.1) mg/dl Magnesium (1.8-2.4) mg/dl Total Bilirubin (0.2-1) mg/dl AST (15-37) U/L ALT (12-78) U/L Alkaline Phosphatase (45-117) U/L Total Protein (6.4-8.2) gm/dl Albumin (3.4-5.0) gm/dl Globulin (2.5-4.0) gm/dl Albumin/Globulin Ratio (0.9-2) Lipase (73-393) U/L TSH (0.300-4.500) uIu/ml Urine Color Dark Yellow Urine Appearance Clear (Clear) Urine pH 5.0 (4.5-7.5) Ur Specific [place] 1.044 H (1.000-1.030) Urine Protein Trace H (Negative) Urine Glucose (UA) Negative (Negative) Urine Ketones Negative (Negative) Urine Blood Negative (Negative) Urine Nitrite Negative (Negative) Urine Bilirubin Negative (Negative) Urine Urobilinogen Negative (Negative) Ur Leukocyte Esterase Negative (Negative) Urine WBC (Auto) 1-5 (0-5) /hpf Urine RBC (Auto) 0-4 (0-4) /hpf U Hyaline Cast (Auto) 5-10 H (0-5) /lpf U Epithel Cells (Auto) >30 H (0-5) /lpf Urine Bacteria (Auto) Negative (Negative) Imaging Data Radiologist's Impression: CT SCAN OF THE ABDOMEN AND PELVIS WITHOUT IV CONTRAST CLINICAL HISTORY: Lower abdominal pain. History of pancreatic cancer. COMPARISON STUDY: Abdominal CT dated 02/15/2019 and 12/23/2018. TECHNIQUE: CT scan of the abdomen and pelvis is performed from the lung bases to the proximal femora. Images are reviewed in the axial, sagittal, and coronal planes. IV contrast was not administered for this examination as per the referring clinician. Note that the examination is suboptimal without oral and IV contrast. A dose lowering technique was utilized adhering to the principles of ALARA. CT DOSE: 521.58 mGy.cm FINDINGS: Lung bases: The heart is normal in size and without pericardial effusion. There is diminished attenuation of the cardiac blood pool as compared to the myocardium suggesting anemia. There are small right and trace left pleural effusions with associated atelectasis. Numerous foci of pleural-based nodularity are again seen at the right lung base. There is no airspace consolidation typical for pneumonia. A small hiatal hernia is noted. 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 Liver: The unenhanced liver is normal in size, contour, and attenuation. Mild intrahepatic biliary ductal dilatation and pneumobilia are again noted. Pneumobilia suggests patency of a common bile duct stent.. Gallbladder: Nonspecific gas is present within the gallbladder lumen, likely related to a biliary stent. Spleen: Normal in size and attenuation. Pancreas: The unenhanced pancreas is atrophic. The pancreatic duct is normal in caliber. There is abnormal soft tissue identified between the pancreatic head and the duodenum, likely related to the patient's noted pancreatic cancer. This is located at the level of the duodenal stent. Adrenal glands: Unremarkable. Kidneys: The unenhanced kidneys demonstrate mild cortical atrophy and are without hydronephrosis. There are no renal calculi identified. There is no evidence of contour deforming renal mass lesion. Abdominal vasculature: The abdominal aorta is normal in course and caliber. Bowel: A duodenal stent is unchanged in position. No bowel obstruction is seen. There is moderate colonic fecal retention. The imaged portions of the appendix are normal in appearance. Peritoneum: There is a small to moderate volume of abdominopelvic ascites. This has not appreciably changed from yesterday. No intraperitoneal free air is seen. There is evidence of peritoneal carcinomatosis. Numerous peritoneal implants are unchanged from yesterday. A contracts representative lesion in the right midabdomen on image #220 measures 1.8 cm. Lymphadenopathy: None. Pelvic viscera: The bladder is decompressed around a Morales catheter. Layering hyperdense material within the bladder lumen likely represents trace excreted contrast. This is new from yesterday. The uterus is normal as imaged. A nabothian cyst is seen in the cervix. No adnexal lesion is identified. Skeletal structures: The skeletal structures are osteopenic. There is grade 1 anterolisthesis at L5-S1. Mild/moderate lumbosacral spondylosis is observed. No lytic or blastic lesions are seen. IMPRESSION: 1. Peritoneal carcinomatosis is again noted. 2. There is a small volume of abdominopelvic ascites, similar in appearance to yesterday. 3. A duodenal stent is unchanged in position. There is no evidence of obstruction. 4. There is pneumobilia and a small amount of gas within the gallbladder lumen. This suggests patency of the common bile duct stent. Mild intrahepatic biliary ductal dilatation is unchanged. 5. Abnormal soft tissue between the pancreatic head and the duodenum at the level of the duodenal stent likely corresponds to the patient's primary neoplasm. 6. Pleural-based nodularity at the right lung base is new from older examinations and likely represents metastatic involvement. There are associated bibasilar pleural effusions. 7. Moderate constipation. 8. Additional findings as above. Electronically signed by: Glenn Gonsalves M.D. 02/16/2019 11:26 AM XR KUB/Abdomen 1 view CLINICAL HISTORY: abd pain pain COMPARISON STUDY: No previous studies for comparison. FINDINGS: Nonobstructive bowel pattern. Stents are present in the right upper quadrant. Mild scoliosis of the lumbar spine. IMPRESSION: Nonobstructive bowel pattern. No acute process. The above report was generated using voice recognition software. It may contain grammatical, syntax or spelling errors. Electronically signed by: Jimmy Sellers M.D. 02/16/2019 10:45 AM [facility] Narrative Patient was seen and evaluated as above in room B12. Review was performed of nursing notes and vital signs. After obtaining a thorough history and physical examination the above work up was performed. She presents to us today with abdominal pain. I thoroughly reviewed yesterday's visit. At that time she had a CT scan of the abdomen and no acute process was identified. It appears that she was likely constipated. She did take some milk of magnesia and unfortuna tely has had some increase of abdominal pain and resurgence of urinary retention. Bladder scan here was initiated and was found to be over 400 cc. A Morales catheter was placed. She was given IV morphine for pain. She was ordered fluids. Zofran for nausea. Labs were drawn. KUB was obtained and was essentially negative. I do not believe the patient is impacted. CBC reveals no leukocytosis. There is a stable but slightly downward trending anemia noted. No evidence of kidney liver failure. Potassium 2.9. IV potassium and p.o. potassium ordered. TSH within normal limits. Urinalysis is negative. The patient's pain persisted and was given another round of IV morphine. Given the patient's state of metastatic pancreatic cancer, second ER visit with similar pain and was felt that inpatient management may be warranted to help better manage the pain. Patient preferred to be admitted. Case discussed with the attending physician as well as the hospitalist. I would note that the care provided yesterday was excellent, and the patient was doing well just not tolerating the pain well. She will be admitted for further evaluation and management. Case was discussed with the attending physician. GCS: 15 In the evaluation and treatment of this patient, the following differential diagnoses were considered: ASC, HI, Pneumonia, GERD, Cholecystitis, Ascending Cholangitis, Cholydocholithiasis, Bowel Obstruction, PE, Amongst Others. Impression & Plan Abdominal pain, Pancreatic cancer, Anemia, Constipation, Acute hypokalemia Discharge Plan Visit Data Chief Complaint: Constipation Stated Complaint: SEVERE CONSTIPATION ED Provider: Hammad Mcneil ED Midlevel Provider: Braden Maldonado Discharge Problem: Abdominal pain, Pancreatic cancer, Anemia, Constipation, Acute hypokalemia Patient Disposition: Home - Self-Care Condition: Good Forms Stand Alone Forms: [facility], Important Visit Information Prescriptions Prescriptions: No Action ondansetron HCl [Zofran] 4 mg tablet 4 mg PO Q6H PRN (Reason: nausea and vomiting) RF: 0 desloratadine [Clarinex] 5 mg tablet 5 mg PO DAILY PRN (Reason: allergies) Qty: 90 RF: 3 lansoprazole 30 mg Capsule,Delayed Release(Dr/Ec) 30 mg PO QAM RF: 0 sertraline 25 mg Tablet 25 mg PO DAILY RF: 0 albuterol sulfate [ProAir HFA] 90 mcg/actuation Hfa Aerosol Inhaler 2 puff INHALATION Q4H PRN (Reason: Wheezing) RF: 0 prochlorperazine maleate 10 mg Tablet 10 mg PO Q6H PRN (Reason: nausea/vomiting) RF: 0 tramadol 50 mg tablet 50 mg PO Q6H PRN (Reason: Pain) RF: 0 cyanocobalamin (vitamin B-12) [Vitamin B-12] 1,000 mcg Tablet 1,000 mcg PO DAILY RF: 0 sucralfate [Carafate] 1 gram Tablet 1 g PO BID PRN (Reason: reflux) RF: 0 cholecalciferol (vitamin D3) [Vitamin D3] 1,000 unit Capsule 1,000 unit PO DAILY RF: 0 dexamethasone 1 mg tablet 1 mg PO DAILY RF: 0 dicyclomine 10 mg capsule 10 - 20 mg PO UD PRN (Reason: ud) RF: 0 Referrals Referrals: Hammad Mathis MD [Primary Care Provider] -
[2019-02-16] MEDS ORDERED: SODIUM CHLORIDE 0.9% 500 ML IV ONE (09:55)
[2019-02-16] MEDS ORDERED: MoRPHine SULFATE 4 MG/ML 1 ML CARP\\VIAL IV STA (10:04)
[2019-02-16] MEDS ORDERED: ONDANSETRON INJ 2 MG/ML 2 ML VIAL IV STA (10:04)
[2019-02-16 10:42] LABS: Hematocrit (blood only) 23.4 % (37-47); Hemoglobin 7.6 g/dL (12.0-16.0); Mean Corpuscular Hgb Conc 32.5 g/dL (32-36); Nucleated RBC # (auto) 0.03 K/uL (0-0); Nucleated RBC % (auto) 0.3 %; RDW Coefficient of Variation 20.9 % (11.5-14.5); RDW Standard Deviation 64.5 fL (36.4-46.3); Red Blood Count 2.69 M/uL (4.2-5.4); White Blood Count 8.79 K/uL (4.8-10.8)
[2019-02-16 10:44] LABS: Appearance Urine Clear (Clear); Bacteria Urine Automated Negative (Negative); Bilirubin Urine Negative (Negative); Blood Urine Negative (Negative); Color Urine Dark Yellow; Epithelial Cell Urine Auto >30 /lpf (0-5); Glucose Urine UA Negative (Negative); Ketones Urine Negative (Negative); Leukocyte Esterase Urine Negative (Negative); Mean Platelet Volume 10.9 fL (7.4-10.4); Nitrite Urine Negative (Negative); Platelet Count 79 K/uL (130-400); Protein Urine Trace (Negative); RBC Urine Automated 0-4 /hpf (0-4); Specific Gravity Urine 1.044 (1.000-1.030); Urobilinogen Urine Negative (Negative)
--- NOTE | 2019-02-16 10:46 | XRay Report ---
XR KUB/Abdomen 1 view CLINICAL HISTORY: abd pain pain COMPARISON STUDY: No previous studies for comparison. FINDINGS: Nonobstructive bowel pattern. Stents are present in the right upper quadrant. Mild scoliosi s of the lumbar spine. IMPRESSION: Nonobstructive bowel pattern. No acute process. The above report was generated using voice recognition software. It may contain grammatical, syntax or spelling errors. Electronically signed by: Jimmy Sellers M.D. 02/16/2019 10:45 AM
[2019-02-16 10:52] LABS: INR 1.2 (0.9-1.1); Partial Thromboplastin Ratio 1.1; Prothrombin Time 11.9 Seconds (9.0-12.0)
[2019-02-16 11:04] LABS: Alanine Aminotransferase 24 U/L (12-78); Albumin Level 2.8 gm/dl (3.4-5.0); Aspartate Aminotransferase 18 U/L (15-37); BUN Creatinine Ratio 16.4 (10-20); Blood Urea Nitrogen 9 mg/dl (7-18); Calcium 8.6 mg/dl (8.5-10.1); Carbon Dioxide 27 mmol/L (21-32); Chloride 104 mmol/L (98-107); Est GFR (African American) 126.5; Est GFR (Non-African American) 109.2; Glucose 106 mg/dl (70-99); Magnesium 2.1 mg/dl (1.8-2.4); Potassium 2.9 mmol/L (3.5-5.1); Sodium 139 mmol/L (136-145)
[2019-02-16 11:15] LABS: Albumin Globulin Ratio 0.8 (0.9-2); Alkaline Phosphatase 184 U/L (45-117); Bilirubin,Total 0.4 mg/dl (0.2-1); Globulin 3.7 gm/dl (2.5-4.0); Total Protein 6.5 gm/dl (6.4-8.2)
[2019-02-16 11:17] LABS: Anisocytosis Present; Basophils # (auto) 0.03 K/uL (0-0.2); Basophils % (auto) 0.3 %; Dohle Bodies 3+; Eosinophils # (auto) 0.01 K/uL (0-0.5); Eosinophils % (auto) 0.1 %; Immature Granulocytes # (auto) 0.44 K/uL (0.00-0.02); Lymphocytes # (auto) 0.41 K/uL (1.2-3.4); Lymphocytes % (auto) 4.7 %; Monocytes # (auto) 0.99 K/uL (0.11-0.59); Monocytes % (auto) 11.3 %; Neutrophils # (auto) 6.91 K/uL (1.4-6.5); Neutrophils % (auto) 78.6 %; Ovalocytes 1+; Tear Drop Cells Occasional; Toxic Granulation 2+
--- NOTE | 2019-02-16 11:27 | CT Scan Report ---
CT SCAN OF THE ABDOMEN AND PELVIS WITHOUT IV CONTRAST CLINICAL HISTORY: Lower abdominal pain. History of pancreatic cancer. COMPARISON STUDY: Abdominal CT dated 02/15/2019 and 12/23/2018. TECHNIQUE: CT scan of the abdomen and pelvis is performed from the lung bases to the proximal femora. Images are reviewed in the axial, sagittal, and coronal planes. IV contrast was not administered for this examination as per the referring clinician. Note that the examination is suboptimal without ora l and IV contrast. A dose lowering technique was utilized adhering to the principles of ALARA. CT DOSE: 521.58 mGy.cm FINDINGS: Lung bases: The heart is normal in size and without pericardial effusion. There is diminished attenua tion of the cardiac blood pool as compared to the myocardium suggesting anemia. There are small right and trace left pleural effusions with associated atelectasis. Numerous foci of pleural-based nodular ity are again seen at the right lung base. There is no airspace consolidation typical for pneumonia. A small hiatal hernia is noted. 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 Liver: The unenhanced liver is normal in size, contour, and attenuation. Mild intrahepatic biliary du ctal dilatation and pneumobilia are again noted. Pneumobilia suggests patency of a common bile duct s tent.. Gallbladder: Nonspecific gas is present within the gallbladder lumen, likely related to a biliary joleen nt. Spleen: Normal in size and attenuation. Pancreas: The unenhanced pancreas is atrophic. The pancreatic duct is normal in caliber. There is abn ormal soft tissue identified between the pancreatic head and the duodenum, likely related to the nery ent's noted pancreatic cancer. This is located at the level of the duodenal stent. Adrenal glands: Unremarkable. Kidneys: The unenhanced kidneys demonstrate mild cortical atrophy and are without hydronephrosis. The re are no renal calculi identified. There is no evidence of contour deforming renal mass lesion. Abdominal vasculature: The abdominal aorta is normal in course and caliber. Bowel: A duodenal stent is unchanged in position. No bowel obstruction is seen. There is moderate col onic fecal retention. The imaged portions of the appendix are normal in appearance. Peritoneum: There is a small to moderate volume of abdominopelvic ascites. This has not appreciably c hanged from yesterday. No intraperitoneal free air is seen. There is evidence of peritoneal carcinoma tosis. Numerous peritoneal implants are unchanged from yesterday. 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 Lymphadenopathy: None. Pelvic viscera: The bladder is decompressed around a Morales catheter. Layering hyperdense material wit hin the bladder lumen likely represents trace excreted contrast. This is new from yesterday. The uter us is normal as imaged. A nabothian cyst is seen in the cervix. No adnexal lesion is identified. Skeletal structures: The skeletal structures are osteopenic. There is grade 1 anterolisthesis at L5-S 1. Mild/moderate lumbosacral spondylosis is observed. No lytic or blastic lesions are seen. IMPRESSION: 1. Peritoneal carcinomatosis is again noted. 2. There is a small volume of abdominopelvic ascites, similar in appearance to yesterday. 3. A duodenal stent is unchanged in position. There is no evidence of obstruction. 4. There is pneumobilia and a small amount of gas within the gallbladder lumen. This suggests patency of the common bile duct stent. Mild intrahepatic biliary ductal dilatation is unchanged. 5. Abnormal soft tissue between the pancreatic head and the duodenum at the level of the duodenal joleen nt likely corresponds to the patient's primary neoplasm. 6. Pleural-based nodularity at the right lung base is new from older examinations and likely represen ts metastatic involvement. There are associated bibasilar pleural effusions. 7. Moderate constipation. 8. Additional findings as above. Electronically signed by: Glenn Gonsalves M.D. 02/16/2019 11:26 AM
[2019-02-16] MEDS ORDERED: POTASSIUM CHLORIDE 20 MEQ TABCR PO STA (12:39)
[2019-02-16] MEDS ORDERED: POTASSIUM CHLORIDE / WTR 10 MEQ/100 ML PLCT IV ONE (12:39)
[2019-02-16] MEDS ORDERED: MoRPHine SULFATE 2 MG/ML CARP IV STA ×3 (12:42→17:14)
[2019-02-16] MEDS ORDERED: ONDANSETRON INJ 2 MG/ML 2 ML VIAL ONE (14:54)
--- NOTE | 2019-02-16 17:48 | History & Physical Report ---
Date of Service February 16, 2019 Assessment & Plan (1) Abdominal pain: Admit to observation on telemetry Vital signs every 4 hours Regular food with small bites Bowel regimen Pain regimen Consult oncology Consult pain management DVT prophylaxis GARCIA benedict Fecal occult blood testing Full code Present on Admission?: Yes (2) Constipation: As the above Present on Admission?: Yes (3) Acute hypokalemia: Replenish potassium IV and monitor hypokalemia daily once when 3.5 continue with p.o. potassium. Present on Admission?: Yes (4) Malignant neoplasm of pancreas: Please consult for Dr. Shiela Hanley hematology oncology Progressive malignant metastatic pancreatic cancer Present on Admission?: Yes History of Present Illness Chief Complaint: Abdominal pain Primary Care Provider: Hammad Mathis MD Patient is a 54 years old female with past medical history of metastatic pancreatic cancer who presents to the emergency department with complaint of severe constipation and abdominal pain. Per patient constipation has been ongoing for some time possibly her last bowel movement was 3 days ago. Patient rates her pain 8 of 10. In regard of her history of metastatic pancreatic cancer patient had radiation or chemotherapy with Dr. Shiela Peacock. Patient takes tramadol every 4 hours for pain and Tylenol in between. Patient said that her abdominal pain is radiating to her low back. Patient said that she was told that her method that the cancer spreads to the omentum and that it is pretty much spread in the abdominal cavity. In the ER patient was given morphine sulfate first 4 mg IV and then approximately every 2 hours patient received another dose of morphine sulfate 2 mg IV x3. Patient also received Zofran 4 mg IV stat and potassium chloride for 40 mg milliequivalents p.o. as well as IV. Labs reviewed white blood cell count 8.79 hemoglobin 7.6 hematocrit 23.4 platelets 79, PT 11.9 INR 1.2 APTT 30, sodium 139 potassium 2.9 chloride 104 BUN 9 creatinine 0.53 glucose 106 alkaline phosphatase 184. Calcium 8.6 magnesium 2.1 AST [address] Lipase 23. CT abdomen and pelvis shows peritoneal carcinomatosis. Small volume of abdominal pelvic ascites similar in appearance to yesterday. A duodenal stent is unchanged in the position there is no evidence of to suggest patency of the, but about the duct stent. Mild intrahepatic bile duct dilatation is unchanged abdominal soft tissue between the pancreatic head and duodenum of the liver level of the duodenal stent likely corresponds to the patient primary neoplasm. Pleural-based nodularity at the right lung is new from all the exit examination likely represent metastatic involvement. There are association bibasilar pleural effusion moderate constipation. Allergies Allergy/AdvReac Type Severity Reaction Status Date / Time iodine Allergy Intermediate ITCHY/HIVES Verified 02/16/19 09:33 Iodinated Contrast- Oral and Allergy Unknown CONTRAST Verified 02/16/19 09:33 IV Dye MEDIA: ITCHY/HIVES Home Medications Home Medications Medication Instructions Recorded Confirmed Type albuterol sulfate [ProAir HFA] 2 puff INHALATION Q4H PRN 04/09/18 02/16/19 History lansoprazole 30 mg PO QAM 04/09/18 02/16/19 History prochlorperazine maleate 10 mg PO Q6H PRN 04/09/18 02/16/19 History sertraline 25 mg PO DAILY 04/09/18 02/16/19 History ondansetron HCl 4 mg tablet 4 mg PO Q6H PRN tab 06/25/18 02/16/19 History tramadol 50 mg tablet 50 mg PO Q6H PRN tab 06/25/18 02/16/19 History cyanocobalamin (vitamin B-12) 1,000 mcg PO DAILY 11/05/18 02/16/19 History [Vitamin B-12] sucralfate [Carafate] 1 g PO BID PRN 12/19/18 02/16/19 History cholecalciferol (vitamin D3) 1,000 unit PO DAILY 01/12/19 02/16/19 History [Vitamin D3] desloratadine 5 mg tablet 5 mg PO DAILY PRN #90 tab 01/29/19 02/16/19 Rx dexamethasone 1 mg PO DAILY 02/15/19 02/16/19 History dicyclomine 10 - 20 mg PO UD PRN 02/15/19 02/16/19 History Past Med/Surg History Medical History History of headache (Resolved) History of tear of ACL (anterior cruciate ligament) (Resolved) Pancreatic cancer (Chronic) Encounter for chemotherapy management (Acute) Started chemo on 01/21/18;Last chemo infusion started on 06/24/18 and will be removed on 06/26/18. 12/24/18 second round of chemo began again for four rounds initially; probably 6 months at this point. History of stenosis of duodenum (Acute) Duodenal stent in place;Associated with pancreatic cancer;Placed by Dr. Radha Egan at [facility] Abnormal Pap smear of cervix (Chronic) Anxiety (Chronic) Asthma (Chronic) RARELY USES PRN INH Hyperlipidemia (Chronic) No meds currently Anemia GI bleed History of hyperlipidemia Surgical History History of biliary stent insertion (Acute) Associated with pancreatic cancer H/O LEEP (Resolved) History of colposcopy (Resolved) History of esophagogastroduodenoscopy (Resolved) With EUS and FNA of pancreatic lesion = pancreatic cancer diagnosis. Status post endometrial ablation (Resolved) For uterine fibroids History of ERCP History of surgery DUODENAL STENT History of surgery BILIARY DRAINAGE TUBE PLACEMENT + REMOVAL Family History Mother , 73yo Asthma Deep vein thrombosis Father , 68yo Emphysema lung Brother Work place accident Brother No problems noted. Brother No problems noted. Brother No problems noted. Brother No problems noted. Sister Deep vein thrombosis Breast cancer Sister No problems noted. Son No problems noted. Son No problems noted. 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 [employer] Other Information That Helps Us Care for You: No Feels Safe at Home: Yes Safety Concerns: Feels Safe At This Time Smoking Status: Never smoker Second Hand Exposure: No ; Hx Alcohol Use: No Hx Substance Use: No caffeine: Yes (1 cup/day) during the past year weight has: decreased > 10 lbs Review of Systems Review of Systems: All systems reviewed & are unremarkable except as noted in HPI & below Physical Exam Constitutional: WD/WN, vitals as above well developed, + ill appearing and + cachectic Eyes: PERRL, conjunctivae normal, anicteric sclerae ENMT: external ear and nose normal, oropharynx normal Neck: trachea midline, no thyromegaly Respiratory: normal respiratory effort, lungs clear to auscultation Auscultation: + breath sounds absent (At the bases bilaterally) Cardiovascular: RRR, no murmur, no edema Chest (Breasts): normal inspection/palpation of breasts Gastrointestinal (Abdomen): Inspection/Auscultation: + abdomen distended and normal bowel sounds Percussion/Palpation: abdomen soft and + ascites Musculoskeletal: no cyanosis or clubbing, extremities motor strength 5/5 Skin: no rashes, warm and dry Neurologic: patellar DTR's 2+ bilat, sensation intact Psychiatric: A+Ox3, euthymic affect Genitourinary: no vaginal lesions, no adnexal mass Lymphatic: no cervical or axillary lymphadenopathy Results & Data Vital Signs (Past 12 Hours) Vital Signs Temp Pulse Pulse Resp BP BP Pulse Ox 02/16/19 15:30 83 20 114/74 96 02/16/19 15:00 78 19 112/73 95 02/16/19 14:44 86 15 123/65 98 02/16/19 14:30 109 H 21 123/65 96 02/16/19 14:00 85 20 124/79 96 02/16/19 13:30 76 16 120/77 97 02/16/19 13:00 78 20 117/84 02/16/19 11:25 71 20 114/66 98 02/16/19 09:15 36.7 C 86 20 113/78 97 Code Status & VTE Plan Code Status full code VTE Prophylaxis Plan VTE Prophylaxis will be ordered: Yes PG Care Time/CCT Total # of Minutes Spent Total Time Spent with Patient: Total time spent is greater than 50% in coordination of care (as documented) at patient's floor/unit and/or counseling patient:
[2019-02-16] MEDS ORDERED: ACETAMINOPHEN 325 MG TAB PO PRN (19:14)
[2019-02-16] MEDS ORDERED: MAGNESIUM HYDROXIDE SUSP 30 ML UDC PO PRN (19:14)
[2019-02-16] MEDS ORDERED: TRAMADOL HCL 50 MG TABLET PO PRN (19:14)
[2019-02-16] MEDS ORDERED: ZOLPIDEM TARTRATE 5 MG TAB PO PRN (19:14)
[2019-02-16] MEDS ORDERED: SUCRALFATE 1 GM TAB PO PRN (19:14)
[2019-02-16] MEDS ORDERED: ALUMINUM/MAGNESIUM SUSP 30 ML UDC PO PRN (19:14)
[2019-02-16] MEDS ORDERED: MoRPHine SULFATE 2 MG/ML CARP IV PRN (19:14)
[2019-02-16] MEDS ORDERED: DICYCLOMINE HCL 10 MG CAP PO PRN (19:14)
[2019-02-16] MEDS: ONDANSETRON 4 MG TAB PO PRN (19:54)
[2019-02-16] MEDS ORDERED: ALBUTEROL HFA 8 GM INHALER INH PRN (20:30)
[2019-02-16] MEDS: NSS + 20MEQ KCL 20 MEQ/1,000 ML BAG IV SCH (20:32)
[2019-02-16] MEDS ORDERED: LAVAGE SOLUTION 4000ML PO SCH (21:00)
[2019-02-16] MEDS: PROCHLORPERAZINE MALEATE 10 MG TAB PO PRN (23:54)
[2019-02-17] MEDS ORDERED: HEPARIN 100 UNIT/ML 5ML FLUSH FLUSH PRN (01:31)
[2019-02-17] MEDS: NSS + 20MEQ KCL 20 MEQ/1,000 ML BAG IV SCH ×2 (05:48→15:48)
[2019-02-17] MEDS: ONDANSETRON 4 MG TAB PO PRN (05:50)
[2019-02-17 06:37] LABS: Hematocrit (blood only) 24.7 % (37-47); Hemoglobin 7.9 g/dL (12.0-16.0); Mean Corpuscular Volume 87.9 fL (80-100); Mean Platelet Volume 10.4 fL (7.4-10.4); Platelet Count 94 K/uL (130-400); RDW Coefficient of Variation 21.3 % (11.5-14.5); RDW Standard Deviation 66.2 fL (36.4-46.3); Red Blood Count 2.81 M/uL (4.2-5.4); White Blood Count 8.47 K/uL (4.8-10.8)
[2019-02-17 07:16] LABS: Alanine Aminotransferase 23 U/L (12-78); Albumin Globulin Ratio 0.8 (0.9-2); Albumin Level 2.7 gm/dl (3.4-5.0); Alkaline Phosphatase 198 U/L (45-117); Aspartate Aminotransferase 16 U/L (15-37); BUN Creatinine Ratio 16.8 (10-20); Bilirubin,Total 0.4 mg/dl (0.2-1); Blood Urea Nitrogen 9 mg/dl (7-18); Calcium 8.2 mg/dl (8.5-10.1); Carbon Dioxide 26 mmol/L (21-32); Chloride 107 mmol/L (98-107); Est GFR (African American) 125.7; Est GFR (Non-African American) 108.5; Globulin 3.6 gm/dl (2.5-4.0); Glucose 104 mg/dl (70-99); Potassium 3.4 mmol/L (3.5-5.1); Sodium 140 mmol/L (136-145); Total Protein 6.3 gm/dl (6.4-8.2)
[2019-02-17 07:44] LABS: Anisocytosis Present; Basophils # (auto) 0.01 K/uL (0-0.2); Basophils % (auto) 0.1 %; Eosinophils # (auto) 0.03 K/uL (0-0.5); Eosinophils % (auto) 0.4 %; Immature Granulocytes # (auto) 0.47 K/uL (0.00-0.02); Immature Granulocytes % (auto) 5.5 %; Lymphocytes # (auto) 0.61 K/uL (1.2-3.4); Lymphocytes % (auto) 7.2 %; Monocytes # (auto) 1.19 K/uL (0.11-0.59); Neutrophils # (auto) 6.16 K/uL (1.4-6.5); Neutrophils % (auto) 72.8 %
[2019-02-17] MEDS: PROCHLORPERAZINE MALEATE 10 MG TAB PO PRN (08:21)
[2019-02-17] MEDS: CHOLECALCIFEROL 1,000 UNITS TAB PO SCH (08:22)
[2019-02-17] MEDS: OXYCODONE/ACETAMINOPHEN 5mg/325mg TAB PO PRN ×2 (08:22→13:34)
[2019-02-17] MEDS: PANTOprazole 40 MG TAB PO SCH (08:22)
[2019-02-17] MEDS: CYANOCOBALAMIN 500 MCG TABLET (VITAMIN B-12) PO SCH (08:22)
[2019-02-17] MEDS: dexAMETHasone 1 MG TAB PO SCH (08:22)
--- NOTE | 2019-02-17 09:27 | Consultation Report ---
DATE OF CONSULTATION: 02/17/2019 MEDICAL ONCOLOGY CONSULTATION REASON FOR CONSULTATION: A 54-year-old female patient with metastatic pancreatic cancer, currently under Dr. Santana's care. HISTORY OF PRESENT ILLNESS: Shoshana is a pleasant 54-year-old female patient well known to [facility], currently under Dr. Santana's care with metastatic pancreatic cancer. She had previously received FOLFIRINOX chemotherapy, last administered in December, and unfortunately her most recent surveillance radiographs indicated disease progression. Thus, Dr. Santana plans to initiate combination Abraxane and gemcitabine beginning on February 23. Over the past 24 hours, the patient developed pretty severe periumbilical pain with some radiation towards her lower thoracic and upper lumbar spine. She admits to constipation. She has of late has been utilizing Ultram for pain relief. She also admits to very poor appetite, but denies any overt weight loss. CT scan of the abdomen and pelvis confirms peritoneal carcinomatosis and a small amount of pelvic ascites. Duodenal stent previously placed is unchanged in position. Mild intrahepatic bile duct dilatation is also unchanged. Soft tissue between the pancreatic head and duodenum corresponds with the primary lesion. The patient denies any fevers or chills at this time. She is receiving laxatives and IV hydration at present. PAST MEDICAL HISTORY: Significant for metastatic pancreatic cancer, asthma, anxiety, treatment-induced cytopenias, stenosis of the duodenum and again the patient last received FOLFIRINOX chemotherapy in mid December. PAST SURGICAL HISTORY: Includes biliary stent placement, LEEP, colposcopy, EGD, endometrial ablation, ERCP and a biliary drainage tube placement and subsequent removal. MEDICATIONS: Prior to admission include albuterol 2 puffs inhaled q. 4 hours p.r.n., lansoprazole 30 mg p.o. daily, Compazine 10 mg p.o. q. 6 hours p.r.n., sertraline 25 mg p.o. daily, Zofran 4 mg p.o. q. 6 hours p.r.n., tramadol 50 mg p.o. q. 4 hours p.r.n., B12 1000 mcg p.o. daily, Carafate 1 gram p.o. b.i.d. p.r.n., cholecalciferol 1000 units p.o. daily, desloratadine 5 mg p.o. daily p.r.n., dexamethasone 1 mg p.o. daily, dicyclomine 10-20 mg p.o. UD p.r.n. ALLERGIES: IV DYE AND IODINE. FAMILY HISTORY: Mother attributable to deep vein thrombosis. Father from emphysema. She had a brother who in the workplace accident. SOCIAL HISTORY: The patient is . She lives independently. She is nonsmoker, nondrinker, non-substance abuser. REVIEW OF SYSTEMS: As per HPI, negative for fevers, chills or sweats. She admits to anorexia. SKIN: No rashes or lesions. No history of dermatoses. HEENT: She denies headaches, lightheadedness or dizziness. No acute visual or hearing deficits. No sinus symptoms, sore throat or dysphagia. LYMPH: No history of lymphoproliferative disease. CARDIAC: No history of coronary artery disease, no angina or palpitations. PULMONARY: Negative for COPD. She does suffer from asthma. She is not acutely short of breath or dyspneic on exertion. GASTROINTESTINAL: Positive for abdominal pain. Positive for constipation. She denies diarrhea. No hematochezia, melena or regina rectal bleeding. GENITOURINARY: No hematuria, dysuria or urinary incontinence. PSYCHIATRIC: Positive for anxiety. MUSCULOSKELETAL: Negative for muscle weakness. No arthralgias or myalgias. NEUROLOGIC: Negative for seizure, stroke, or migraine headache. HEMATOLOGIC: Cytopenias attributable to chemotherapy. PHYSICAL EXAMINATION: GENERAL: Very pleasant 54-year-old female, in no acute distress. VITAL SIGNS: Temperature 36.8, pulse 83, respiratory rate 18, blood pressure 107/67. SKIN: Without rash or lesion. No petechiae, ecchymosis or bruising noted. HEENT: Atraumatic, normocephalic. Eyes: PERRLA, EOMI. Sclerae nonicteric. No conjunctival injection. Nares patent without rhinorrhea or discharge. Throat clear. Tongue midline. Mucous membranes are moist. NECK: Supple without JVD or thyromegaly. LYMPH: No cervical, supraclavicular, axillary or inguinal palpable nodes. HEART: Regular rate and rhythm. No clicks, rubs or murmurs or gallops. LUNGS: Clear to auscultation bilaterally. ABDOMEN: Firm. Bowel sounds are hypoactive. Mildly tender on palpation. No rigidity or guarding. No palpable hepatosplenomegaly. EXTREMITIES: No clubbing, cyanosis or edema. MUSCULOSKELETAL: Strength and pulses are equal in all 4 quadrants. NEUROLOGICALLY: She is awake, alert and oriented x3. Cranial nerves are grossly intact. RADIOGRAPHIC DATA: KUB done on admission, nonobstructive bowel pattern noted. CT of the abdomen and pelvis, again peritoneal carcinomatosis is noted with a small volume of abdominopelvic ascites, duodenal stent is unchanged in position, primary lesion between the pancreatic head and duodenum is again noted. LABORATORY DATA: WBC count 8470, hemoglobin 7.9, platelet count 94,000. Sodium 140, potassium 3.4, chloride 107, carbon dioxide 26, creatinine 0.54, BUN 9, albumin 2.7. IMPRESSION: 1. Subacute onset diffuse abdominal pain. 2. Constipation. 3. Progressing metastatic pancreatic cancer. 4. Hypoalbuminemia. PLAN: I have been asked to visit with Shoshana at bedside this morning. She states that over the past 24 hours developed pretty severe abdominal pain which prompted a visit to the Emergency Room. She has of late has been utilizing a bit more Ultram which may have contributed to constipation. She also relates increased demand for antinausea meds which can also contribute. I believe when she moves her bowels, her abdominal pain should subside. I would aggressively put her on stool softeners, utilize Fleet's enema, mag citrate perhaps milk of magnesia. The patient is not febrile. She obviously suffers from residual cytopenias from previous chemotherapy. Dr. Santana, because of disease progression, will proceed with combination gemcitabine and Abraxane which is scheduled to begin on the . I have no further suggestions in regards to her care moving forward. We will advise Dr. Santana of patient's admission to the hospital. GILMARD
--- NOTE | 2019-02-17 16:31 | Progress Note ---
DATE: 02/17/2019 REASON FOR CONSULTATION: Abdominal pain and constipation. HISTORY OF PRESENT ILLNESS: The patient is a 54-year-old with metastatic pancreatic cancer. The patient has biliary and duodenal stents in place due to invasive cancer and has carcinomatosis. She is scheduled to begin a new chemotherapy regimen on 02/23/2019 but presented to the Emergency Room with worsening abdominal pain and constipation. She has been taking Ultram for pain. CT scan performed in the ER showed a large stool burden and carcinomatosis and a small amount of abdominal ascites. Since being hospitalized, she has been started on Colyte and is starting to move her bowels prior to that she had not moved her bowels for 2 days. She is still somewhat distended but less so than on admission. She has been seen in consultation by the oncologist who plan to initiate chemo in 6 days for relapsing disease. PAST MEDICAL HISTORY: Remarkable for ACL tear, hyperlipidemia and anemia. MEDICATIONS: Per list. ALLERGIES: IODINE. FAMILY HISTORY: Negative for pancreatic cancer. SOCIAL HISTORY: The patient is . 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 REVIEW OF SYSTEMS: Positive only for the things previously mentioned. PHYSICAL EXAMINATION: GENERAL: The patient appears in no acute distress. VITAL SIGNS: Normal. She is afebrile. ABDOMEN: Somewhat distended and lumpy but no discrete areas of tenderness. IMPRESSION: The patient has abdominal pain, constipation, probably from a combination of carcinomatosis and taking tramadol and possibly Carafate as well. Recommend that she stop the Carafate for now and continue with GoLYTELY, which is starting to help her bowels move. If this continues to be successful, she will not need any enemas. Once her bowels are moving better, she can continue on maintenance MiraLax as an outpatient and resume her chemotherapy in 6 days. I have no other suggestions at this time.
--- NOTE | 2019-02-17 17:49 | Palliative Care Consultation ---
Date of Consultation February 17, 2019 Assessment & Plan (1) Palliative care encounter: Patient is a 54-year-old female with metastatic pancreatic cancer-status post biliary stent and a duodenal stent for obstructive symptoms. Patient is on tramadol 100 mg 4 times daily PRN for pain, 1 mg of Decadron for partial bowel obstruction as well as mood and appetite. Patient was recently seen in clinic on 02/05-she was started on Bentyl 10 mg 4 times daily as needed to help with abdominal spasm and to minimize tramadol requirements. Patient presented to the emergency room on 02/15 and on 02/16 with worsening abdominal pain. Patient was found with significant constipation-likely due to to her pain and GI medications. Patient is currently receiving some mag citrate-expect pain to resolve with resolution of constipation. Patient seen and examined in her room, patient's sister and 2 friends at bedside. Discussed with patient at length multiple ways to treat her chronic constipation including prune juice, MiraLAX, and stool softeners. Plan is for discharge home once constipation is relieved-patient can continue to follow-up in palliative clinic as an outpatient. -Abdominal pain-chronic has been well controlled on tramadol 100 mg 4 times daily as needed. Recently added Bentyl for abdominal spasms-now with constipation causing exacerbation of pain -Constipation-likely due to tramadol and Bentyl-discussed multiple ways to control constipation after discharge -Pancreatic tlrync-[id number]-exb carcinomatosis, continue outpatient follow-up in palliative clinic -Duodenal obstruction-status post duodenal stenting -Biliary obstruction-status post biliary stent Will continue to follow while patient is inpatient. Patient has information on how to follow-up in palliative clinic after discharge. (2) Abdominal pain: (3) Constipation: (4) Malignant neoplasm of pancreas: (5) Obstruction of biliary stent: (6) Duodenal stenosis: History of Present Illness Reason for Consultation: Patient requesting palliative care-patient known to me from outpatient palliative care clinic Requesting Physician: Dr. Laguna Attending Physician: Calvin Laguna History of Present Illness Patient is a 54-year-old female with metastatic pancreatic cancer-status post biliary stent and a duodenal stent for obstructive symptoms. Patient is on tramadol 100 mg 4 times daily PRN for pain, 1 mg of Decadron for partial bowel obstruction as well as mood and appetite. Patient was recently seen in clinic on 02/05-she was started on Bentyl 10 mg 4 times daily as needed to help with abdominal spasm and to minimize tramadol requirements. Patient presented to the emergency room on 02/15 and on 02/16 with worsening abdominal pain. Patient was found with significant constipation-likely due to to her pain and GI medications. Patient is currently receiving some mag citrate-expect pain to resolve with resolution of constipation. Patient seen and examined in her room, patient's sister and 2 friends at bedside. Discussed with patient at length multiple ways to treat her chronic constipation including prune juice, MiraLAX, and stool softeners. Plan is for discharge home once constipation is relieved-patient can continue to follow-up in palliative clinic as an outpatient. Allergies Allergy/AdvReac Type Severity Reaction Status Date / Time iodine Allergy Intermediate ITCHY/HIVES Verified 02/16/19 09:33 Iodinated Contrast- Oral and Allergy Unknown CONTRAST Verified 02/16/19 09:33 IV Dye MEDIA: ITCHY/HIVES Home Medications Home Medications Medication Instructions Recorded Confirmed Type albuterol sulfate [ProAir HFA] 2 puff INHALATION Q4H PRN 04/09/18 02/16/19 History lansoprazole 30 mg PO QAM 04/09/18 02/16/19 History prochlorperazine maleate 10 mg PO Q6H PRN 04/09/18 02/16/19 History sertraline 25 mg PO DAILY 04/09/18 02/16/19 History ondansetron HCl 4 mg tablet 4 mg PO Q6H PRN tab 06/25/18 02/16/19 History tramadol 50 mg tablet 50 mg PO Q6H PRN tab 06/25/18 02/16/19 History cyanocobalamin (vitamin B-12) 1,000 mcg PO DAILY 11/05/18 02/16/19 History [Vitamin B-12] sucralfate [Carafate] 1 g PO BID PRN 12/19/18 02/16/19 History cholecalciferol (vitamin D3) 1,000 unit PO DAILY 01/12/19 02/16/19 History [Vitamin D3] desloratadine 5 mg tablet 5 mg PO DAILY PRN #90 tab 01/29/19 02/16/19 Rx dexamethasone 1 mg PO DAILY 02/15/19 02/16/19 History dicyclomine 10 - 20 mg PO UD PRN 02/15/19 02/16/19 History Patient History Medical History History of headache (Resolved) History of tear of ACL (anterior cruciate ligament) (Resolved) Pancreatic cancer (Chronic) Encounter for chemotherapy management (Acute) Started chemo on 01/21/18;Last chemo infusion started on 06/24/18 and will be removed on 06/26/18. 12/24/18 second round of chemo began again for four rounds initially; probably 6 months at this point. History of stenosis of duodenum (Acute) Duodenal stent in place;Associated with pancreatic cancer;Placed by Dr. Radha Egan at [facility] Abnormal Pap smear of cervix (Chronic) Anxiety (Chronic) Asthma (Chronic) RARELY USES PRN INH Hyperlipidemia (Chronic) No meds currently Anemia GI bleed History of hyperlipidemia Surgical History History of biliary stent insertion (Acute) Associated with pancreatic cancer H/O LEEP (Resolved) History of colposcopy (Resolved) History of esophagogastroduodenoscopy (Resolved) With EUS and FNA of pancreatic lesion = pancreatic cancer diagnosis. Status post endometrial ablation (Resolved) For uterine fibroids History of ERCP History of surgery DUODENAL STENT History of surgery BILIARY DRAINAGE TUBE PLACEMENT + REMOVAL Family History Mother , 73yo Asthma Deep vein thrombosis Father , 68yo Emphysema lung Brother Work place accident Brother No problems noted. Brother No problems noted. Brother No problems noted. Brother No problems noted. Sister Deep vein thrombosis Breast cancer Sister No problems noted. Son No problems noted. Son No problems noted. 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 [employer] Feels Safe at Home: Yes Smoking Status: Never smoker Second Hand Exposure: No ; Hx Alcohol Use: No Hx Substance Use: No caffeine: Yes (1 cup/day) during the past year weight has: decreased > 10 lbs Review of Systems Review of Systems: Negative for fever, chills, chest pain, shortness of breath Positive for nausea, abdominal pain Physical Exam Physical Exam: PE: Appears comfortable, lying in bed HEENT: EOMI, hearing within normal limits Respirations: Unlabored CV: Regular rate, no edema Abdomen: Distended, tender to light palpation Neuro: Alert and oriented x4 Psych: Appropriate mood and affect Results & Data Vital Signs (Past 12 Hours) Vital Signs Temp Pulse Pulse Resp BP Pulse Ox 02/17/19 15:03 98.2 F 77 18 104/67 95 02/17/19 11:29 98.1 F 82 18 113/73 95 02/17/19 09:00 82 02/17/19 07:10 98.2 F 83 18 107/67 96 PG Care Time/CCT Total # of Minutes Spent Total Time Spent with Patient: Total time spent is greater than 50% in co ordination of care (as documented) at patient's floor/unit and/or counseling patient: Time Spent Attending Total time spent 55 minutes with greater than 50% of the time at bedside discussing patient's pain control at home prior to admission as well as reviewing x-ray with patient and discussing plan of care.
[2019-02-17] MEDS: POLYETHYLENE (MIRALAX) 17 GM PACK PO PRN (22:16)
--- NOTE | 2019-02-17 23:55 | Hospitalist Progress Note ---
Date of Service February 17, 2019 Assessment & Plan (1) Abdominal pain: Admit to observation on telemetry Vital signs every 4 hours Regular food with small bites Bowel regimen Pain regimen Consulted oncology Consulted pain management DVT prophylaxis GARCIA jacklynchery Fecal occult blood testing Full code (2) Constipation: As the above Will consult pallaitve care and gastro. Given that patient continues to have abdominal pain, patient will be admitted. Appears the constipation is multifactorial, from pain medicine and the cancer. (3) Acute hypokalemia: Replenish potassium IV and monitor hypokalemia daily once when 3.5 continue with p.o. potassium. (4) Malignant neoplasm of pancreas: Please consult for Dr. Shiela Hanley hematology oncology Progressive malignant metastatic pancreatic cancer Subjective Patient is a 54 yo female who has advanced cancer. She states she has some abdominal pain, which is now moderate in tensity. She states she has been also passing as and has been having bowel movements. Review of Systems Review of Systems: All systems reviewed & are unremarkable except as noted in HPI & below Physical Exam Physical Exam: Constitutional: WD/WN, vitals as above well developed Eyes: PERRL, conjunctivae normal, anicteric sclerae ENMT: external ear and nose normal, oropharynx normal Neck: trachea midline, no thyromegaly Respiratory: normal respiratory effort, lungs clear to auscultation Auscultation: + breath sounds absent (At the bases bilaterally) Cardiovascular: RRR, no murmur, no edema Chest (Breasts): normal inspection/palpation of breasts Gastrointestinal (Abdomen): Inspection/Auscultation: + abdomen distended and normal bowel sounds Percussion/Palpation: abdomen soft and + ascites Musculoskeletal: no cyanosis or clubbing, extremities motor strength 5/5 Skin: no rashes, warm and dry Neurologic: patellar DTR's 2+ bilat, sensation intact Psychiatric: A+Ox3, euthymic affect Genitourinary: no vaginal lesions, no adnexal mass Lymphatic: no cervical or axillary lymphadenopathy Results & Data Vital Signs (Past 12 Hours) Vital Signs Temp Pulse Resp BP Pulse Ox 02/17/19 23:27 36.7 C 80 18 100/59 L 95 02/17/19 20:27 36.7 C 73 18 104/69 96 02/17/19 15:03 36.8 C 77 18 104/67 95 PG Care Time/CCT Total # of Minutes Spent Total Time Spent with Patient: Total time spent is greater than 50% in coordination of care (as documented) at patient's floor/unit and/or counseling patient:
[2019-02-18] MEDS: NSS + 20MEQ KCL 20 MEQ/1,000 ML BAG IV SCH ×2 (00:42→09:33)
[2019-02-18 06:33] LABS: Hematocrit (blood only) 21.9 % (37-47); Mean Corpuscular Volume 88.7 fL (80-100); RDW Coefficient of Variation 21.7 % (11.5-14.5); RDW Standard Deviation 69.4 fL (36.4-46.3); Red Blood Count 2.47 M/uL (4.2-5.4); White Blood Count 5.74 K/uL (4.8-10.8)
[2019-02-18 06:39] LABS: Mean Platelet Volume 10.9 fL (7.4-10.4); Platelet Count 78 K/uL (130-400)
[2019-02-18 06:58] LABS: Anisocytosis Present; Eosinophils # (auto) 0.02 K/uL (0-0.5); Eosinophils % (auto) 0.3 %; Immature Granulocytes # (auto) 0.24 K/uL (0.00-0.02); Immature Granulocytes % (auto) 4.2 %; Monocytes % (auto) 13.9 %; Neutrophils # (auto) 4.28 K/uL (1.4-6.5); Neutrophils % (auto) 74.6 %; Poikilocytosis Present
[2019-02-18 07:02] LABS: Albumin Level 2.3 gm/dl (3.4-5.0); BUN Creatinine Ratio 11.5 (10-20); Creatinine Clr Calc Pharmacy 156.3 ml/min; Est GFR (African American) 134.5; Est GFR (Non-African American) 116.1; Potassium 3.7 mmol/L (3.5-5.1)
[2019-02-18 07:05] LABS: Albumin Globulin Ratio 0.7 (0.9-2); Bilirubin,Total 0.2 mg/dl (0.2-1); Globulin 3.3 gm/dl (2.5-4.0); Total Protein 5.6 gm/dl (6.4-8.2)
[2019-02-18] MEDS: CYANOCOBALAMIN 500 MCG TABLET (VITAMIN B-12) PO SCH (09:32)
[2019-02-18] MEDS: CHOLECALCIFEROL 1,000 UNITS TAB PO SCH (09:32)
[2019-02-18] MEDS: PANTOprazole 40 MG TAB PO SCH (09:33)
[2019-02-18] MEDS: dexAMETHasone 1 MG TAB PO SCH (09:33)
[2019-02-18 14:13] LABS: Hematocrit (blood only) 22.5 % (37-47)
[2019-02-18] MEDS: POLYETHYLENE (MIRALAX) 17 GM PACK PO PRN (14:20)
[2019-02-18] MEDS ORDERED: LAVAGE SOLUTION 4000ML PO SCH (16:15)
[2019-02-18] MEDS ORDERED: SODIUM CHLORIDE 0.9% 250 ML IV PRN (16:19)
[2019-02-18] MEDS ORDERED: SOD PHOSPHATE/SOD BIPHOSPHATE ENEMA 132 ML BTL PR PRN (16:49)
--- NOTE | 2019-02-18 18:42 | Progress Note ---
DATE: 02/18/2019 SUBJECTIVE: The patient reports her abdominal pain is significantly better. She is passing some stool and gas. She has been taking GoLYTELY and prune juice and lots of liquids. She is still having some abdominal distention and the stool that she is passing is quite firm she said. PHYSICAL EXAMINATION: VITAL SIGNS: Normal. She is afebrile. ABDOMEN: Less distended and tender than it was previously. IMPRESSION AND PLAN: The patient's constipation is improving. I recommend a Fleet enema today and p.r.n. to try to get things moving better from below and hopefully if she continues to move her bowels well and her pain is diminished as it is today, we can advance her diet tomorrow and hopefully discharge her soon. She is due to begin her new chemo in a few days.
--- NOTE | 2019-02-18 23:27 | Hospitalist Progress Note ---
Date of Service February 18, 2019 Assessment & Plan (1) Abdominal pain: Admit to observation on telemetry Vital signs every 4 hours Regular food with small bites Bowel regimen Pain regimen Consulted oncology Consulted pain management Pain appears better controlled today. Patient placed on golytly which is improving his abdominal pain. DVT prophylaxis GARCIA jacklynchery Fecal occult blood testing Full code (2) Constipation: As the above Will consult palliative care and gastro. Given that patient continues to have abdominal pain, patient will be admitted. Appears the constipation is multifactorial, from pain medicine and the cancer. Patient appears to be responding to golytely. Will monitor. (3) Acute hypokalemia: Potassium improved will monitor (4) Malignant neoplasm of pancreas: Please consult for Dr. Shiela Hanley hematology oncology Progressive malignant metastatic pancreatic cancer Appears to be poor prognosis Subjective Patient reports her symptoms have improved in intensity. She still has a distended abdomen, and continues to have abdominal pain with constipation. She has been having bowel movements today. Review of Systems Review of Systems: All systems reviewed & are unremarkable except as noted in HPI & below Physical Exam Physical Exam: Constitutional: WD/WN, vitals as above well developed Eyes: PERRL, conjunctivae normal, anicteric sclerae ENMT: external ear and nose normal, oropharynx normal Neck: trachea midline, no thyromegaly Respiratory: normal respiratory effort, lungs clear to auscultation Cardiovascular: RRR, no murmur, no edema Gastrointestinal (Abdomen): Inspection/Auscultation: + abdomen distended and normal bowel sounds Percussion/Palpation: abdomen soft Musculoskeletal: no cyanosis or clubbing, extremities motor strength 5/5 Skin: no rashes, warm and dry Neurologic: patellar DTR's 2+ bilat, sensation intact Psychiatric: A+Ox3, euthymic affect Genitourinary: no vaginal lesions, no adnexal mass Lymphatic: no cervical or axillary lymphadenopathy Results & Data Vital Signs (Past 12 Hours) Vital Signs Temp Pulse Pulse Resp BP BP Pulse Ox 02/18/19 22:40 37.1 C 72 20 119/75 95 02/18/19 22:10 37.1 C 66 18 108/65 94 02/18/19 21:55 36.7 C 70 18 106/65 96 02/18/19 21:40 37.2 C 70 18 109/65 96 02/18/19 21:39 37.2 C 70 18 109/65 96 02/18/19 21:07 37.0 C 76 20 117/73 94 02/18/19 20:35 37.2 C 69 20 110/68 97 02/18/19 20:05 37.1 C 76 18 108/69 95 02/18/19 19:35 36.7 C 73 18 109/69 96 02/18/19 19:20 37.2 C 74 18 103/64 93 02/18/19 19:02 36.8 C 61 18 117/64 98 02/18/19 18:58 62 16 117/64 98 02/18/19 17:10 75 02/18/19 14:58 36.6 C 74 18 104/69 96 02/18/19 11:27 36.6 C 73 18 102/68 95 PG Care Time/CCT Total # of Minutes Spent Total Time Spent with Patient: Total time spent is greater than 50% in coordination of care (as documented) at patient's floor/unit and/or counseling patient:
[2019-02-19] MEDS: NSS + 20MEQ KCL 20 MEQ/1,000 ML BAG IV SCH ×2 (00:36→09:24)
[2019-02-19 06:52] LABS: Hematocrit (blood only) 28.6 % (37-47); Hemoglobin 9.1 g/dL (12.0-16.0); Mean Corpuscular Hgb Conc 31.8 g/dL (32-36); Mean Corpuscular Volume 87.5 fL (80-100); RDW Coefficient of Variation 19.7 % (11.5-14.5); Red Blood Count 3.27 M/uL (4.2-5.4)
[2019-02-19 07:05] LABS: Basophils # (auto) 0.01 K/uL (0-0.2); Basophils % (auto) 0.1 %; Eosinophils # (auto) 0.02 K/uL (0-0.5); Eosinophils % (auto) 0.3 %; Immature Granulocytes # (auto) 0.18 K/uL (0.00-0.02); Immature Granulocytes % (auto) 2.3 %; Lymphocytes # (auto) 0.52 K/uL (1.2-3.4); Lymphocytes % (auto) 6.8 %; Mean Platelet Volume 10.2 fL (7.4-10.4); Monocytes # (auto) 0.77 K/uL (0.11-0.59); Neutrophils % (auto) 80.5 %; Platelet Count 74 K/uL (130-400)
[2019-02-19 07:27] LABS: Albumin Level 2.5 gm/dl (3.4-5.0); BUN Creatinine Ratio 6.7 (10-20); Calcium 8.1 mg/dl (8.5-10.1); Creatinine Clr Calc Pharmacy 152.8 ml/min; Est GFR (African American) 133.5; Est GFR (Non-African American) 115.2
[2019-02-19 07:28] LABS: Anisocytosis Present
[2019-02-19 07:29] LABS: Albumin Globulin Ratio 0.7 (0.9-2); Bilirubin,Total 0.4 mg/dl (0.2-1); Globulin 3.5 gm/dl (2.5-4.0)
--- NOTE | 2019-02-19 08:37 | Progress Note ---
DATE: 02/19/2019 MEDICAL ONCOLOGY PROGRESS NOTE DIAGNOSES: 1. Subacute onset diffuse abdominal pain. 2. Constipation. 3. Progressive metastatic pancreatic cancer. 4. Hypoalbuminemia. SUBJECTIVE: Shoshana was seen and examined. I caught her coming out of the bathroom today and reportedly moved her bowels. Her abdominal pain has improved dramatically. She is slowly advancing through a soft diet. Nursing reports no issues otherwise. I anticipate discharge later on today. Shoshana will be starting a combination Abraxane and gemcitabine at Dr. Santana's direction early next week. OBJECTIVE: GENERAL: A very pleasant 54-year-old female in no acute distress. VITAL SIGNS: Temperature 36.8, pulse 70, respiratory rate 17, blood pressure 116/79. SKIN: Without rash or lesion. HEENT: Oral mucosa without erythema or ulceration. NECK: Supple. Trachea is midline. HEART: Regular rate and rhythm. LUNGS: Clear to auscultation bilaterally. ABDOMEN: Soft, nontender, nondistended. Bowel sounds are hypoactive. EXTREMITIES: No clubbing, cyanosis or edema. NEUROLOGIC: Grossly intact. LABORATORY DATA: WBC count 7700, hemoglobin 9.1, platelet count 74,000. Sodium 142, potassium 4.0, chloride 109, carbon dioxide 26, creatinine 0.45, BUN 3, albumin 2.5. IMPRESSION: 1. Subacute onset diffuse abdominal pain. 2. Constipation. 3. Progressive metastatic pancreatic cancer. 4. Hypoalbuminemia. PLAN: Shoshana looks pretty good today from a clinical standpoint. She moved her bowels just prior to my visit this morning. She seems to be tolerating her appetite reasonably well and anticipates going home later on today. The patient has established followup with Dr. Santana as she will begin combination gemcitabine and Abraxane early next week. Answered a few questions Shoshana had regarding her next chemo regimen. She verbalized understanding and has agreed to proceed. I will officially sign off her case today. Again, I anticipate she will most likely be discharged later on today.
[2019-02-19] MEDS: PANTOprazole 40 MG TAB PO SCH (09:24)
[2019-02-19] MEDS: dexAMETHasone 1 MG TAB PO SCH (09:24)
[2019-02-19] MEDS: CYANOCOBALAMIN 500 MCG TABLET (VITAMIN B-12) PO SCH (09:25)
[2019-02-19] MEDS: CHOLECALCIFEROL 1,000 UNITS TAB PO SCH (09:25)
[2019-02-19 11:35] LABS: Magnesium 2.2 mg/dl (1.8-2.4); Phosphorus 3.2 mg/dl (2.5-4.9)
--- NOTE | 2019-02-27 10:08 | Discharge Summary ---
Date of Service February 19, 2019 Admission HPI Per Admitting Provider Patient is a 54 years old female with past medical history of metastatic pancreatic cancer who presents to the emergency department with complaint of severe constipation and abdominal pain. Per patient constipation has been ongoing for some time possibly her last bowel movement was 3 days ago. Patient rates her pain 8 of 10. In regard of her history of metastatic pancreatic cancer patient had radiation or chemotherapy with Dr. Shiela Peacock. Patient takes tramadol every 4 hours for pain and Tylenol in between. Patient said that her abdominal pain is radiating to her low back. Patient said that she was told th at her method that the cancer spreads to the omentum and that it is pretty much spread in the abdominal cavity. In the ER patient was given morphine sulfate first 4 mg IV and then approximately every 2 hours patient received another dose of morphine sulfate 2 mg IV x3. Patient also received Zofran 4 mg IV stat and potassium chloride for 40 mg milliequivalents p.o. as well as IV. Labs reviewed white blood cell count 8.79 hemoglobin 7.6 hematocrit 23.4 platelets 79, PT 11.9 INR 1.2 APTT 30, sodium 139 potassium 2.9 chloride 104 BUN 9 creatinine 0.53 glucose 106 alkaline phosphatase 184. Calcium 8.6 magnesium 2.1 AST [address] Lip[address] 23. [address] abdomen and pelvis shows peritoneal carcinomatosis. Small volume of abdominal pelvic ascites similar in appearance to yesterday. A duodenal stent is unchanged in the position there is no evidence of to suggest patency of the, but about the duct stent. Mild intrahepatic bile duct dilatation is unchanged abdominal soft tissue between the pancreatic head and duodenum of the liver level of the duodenal stent likely corresponds to the patient primary neoplasm. Pleural-based nodularity at the right lung is new from all the exit examination likely represent metastatic involvement. There are association bibasilar pleural effusion moderate constipation. Principal Diagnosis Abdominal pain Discharge Exam Constitutional: WD/WN, vitals as above well developed Eyes: PERRL, conjunctivae normal, anicteric sclerae ENMT: external ear and nose normal, oropharynx normal Neck: trachea midline, no thyromegaly Respiratory: normal respiratory effort, lungs clear to auscultation Cardiovascular: RRR, no murmur, no edema Gastrointestinal (Abdomen): Inspection/Auscultation: + abdomen distended and normal bowel sounds Percussion/Palpation: abdomen soft Musculoskeletal: no cyanosis or clubbing, extremities motor strength 5/5 Skin: no rashes, warm and dry Neurologic: patellar DTR's 2+ bilat, sensation intact Psychiatric: A+Ox3, euthymic affect Genitourinary: no vaginal lesions, no adnexal mass Lymphatic: no cervical or axillary lymphadenopathy Discharge Data Allergies Allergy/AdvReac Type Severity Reaction Status Date / Time iodine Allergy Intermediate ITCHY/HIVES Verified 02/16/19 09:33 Iodinated Contrast- Oral and Allergy Unknown CONTRAST Verified 02/16/19 09:33 IV Dye MEDIA: ITCHY/HIVES Consultations 02/16/19 12:56 ED Decision to Admit Stat 02/16/19 19:14 Consult Hematology Routine 02/17/19 11:30 Consult Gastroenterology Routine 02/17/19 11:33 Consult Palliative Care Routine Ordered Studies 02/16/19 10:50 CT abd pelvis wo con Stat Hospital Course (1) Abdominal pain: Admit to observation on telemetry Vital signs every 4 hours Regular food with small bites Bowel regimen Pain regimen Consulted oncology Consulted pain management Pain appears better controlled today. Patient placed on golytly which is improving his abdominal pain. On day of discharge, patient appeared to be improving. She looked well and was anxious to be discharged. Discussed discharge plan with GI. She moved her bowels and seems to be tolerating her appetite reasonably well. will discharge her on miralax DVT prophylaxis GARCIA hose Fecal occult blood testing Full code (2) Constipation: As the above Will consult palliative care and gastro. Given that patient continues to have abdominal pain, patient will be admitted. Appears the constipation is multifactorial, from pain medicine and the cancer. Patient appears to be responding to golytely. Will monitor. (3) Acute hypokalemia: Potassium improved will monitor (4) Malignant neoplasm of pancreas: Please consult for Dr. Shiela Hanley hematology oncology Progressive malignant metastatic pancreatic cancer Appears to be poor prognosis Total Time Total Time Spent Total Time Spent (In Minutes): 32 Total Time Includes: Examination of the Patient, Discharge Planning and Medication Reconciliation Discharge Plan Discharge Items Patient Disposition: Home - Self-Care Reason For Visit: ABDOMINAL PAIN Discharge Diagnosis: Abdominal pain Condition: Good Discharge Goals: Decrease discomfort Activity: Resume your previous activity Non-emergency contact: Primary Care Provider Call non-emergency contact if: you have any medication questions Follow-up/Referrals: Hammad Mathis MD [Primary Care Provider] - Diet: Regular Diet Texture: Dental soft (bite-sized) Addtl Provider Instructions: You were seen for constipation. Will have you continue with miralax. You will take it twice a day for constipation. Prescriptions: New polyethylene glycol 3350 [Miralax] 17 gram Powder In Packet 17 g PO DAILY PRN (Reason: constipation) Qty: 30 RF: 0 Continued ondansetron HCl [Zofran] 4 mg tablet 4 mg PO Q6H PRN (Reason: nausea and vomiting) RF: 0 desloratadine [Clarinex] 5 mg tablet 5 mg PO DAILY PRN (Reason: allergies) Qty: 90 RF: 3 lansoprazole 30 mg Capsule,Delayed Release(Dr/Ec) 30 mg PO QAM RF: 0 albuterol sulfate [ProAir HFA] 90 mcg/actuation Hfa Aerosol Inhaler 2 puff INHALATION Q4H PRN (Reason: Wheezing) RF: 0 prochlorperazine maleate 10 mg Tablet 10 mg PO Q6H PRN (Reason: nausea/vomiting) RF: 0 tramadol 50 mg tablet 50 mg PO Q6H PRN (Reason: Pain) RF: 0 dexamethasone 1 mg tablet 1 mg PO DAILY RF: 0 No Action prednisone 20 mg tablet PRN (Reason: Allergic Symptoms) RF: 0 Stand-Alone Forms: [facility], Important Visit Information Discharge Orders: Discharge Order (Routine); Ordered 02/19/19 Ordered By: Calvin Laguna Admission Data Admit Date/Time: 02/17/19 23:55 Attending Provider: Calvin Laguna Admit Provider: Maria De Jesus Davis Primary Care Provider: Hammad Matihs Other Providers: Richard Santana ; Maria De Jesus Davis ; Mauricio Quezada ; Keke Chau Service: Telemetry Medical Other Interventions: Discharge Summary Assessment (RN) Last Done: 02/19/19 15:41 DC Date/Time DO NOT enter until pt leaves facility: 02/19/19 16:40
== END 2019-02-19 16:40 | disposition home or self-care (01) | DRG 374 ==
LOC: ED 09:04 → 2N 09:04 → SUATTDRO 17:27 → 2N 18:58

== ENCOUNTER 2019-02-26 05:26 | Inpatient (IN) ==
[2019-02-26] MEDS ORDERED: SODIUM CHLORIDE 0.9% 500 ML IV SCH (05:45)
[2019-02-26] MEDS ORDERED: FAMOTIDINE 20MG/5ML IV PUSH IV STA (05:45)
[2019-02-26] MEDS ORDERED: DiphenhydrAMINE HCL 50 MG/ML VIAL IV STA (05:45)
[2019-02-26] MEDS ORDERED: PROMETHAZINE HCL 12.5 MG in SODIUM CHLORIDE 0.9% 50 ML IV STA (05:45)
[2019-02-26] MEDS ORDERED: SODIUM CHLORIDE 0.9% 1000ML 1,000 ML IV SCH (06:00)
[2019-02-26 06:33] LABS: Hematocrit (blood only) 29.7 % (37-47); Hemoglobin 9.8 g/dL (12.0-16.0); Mean Corpuscular Volume 86.3 fL (80-100); RDW Coefficient of Variation 19.1 % (11.5-14.5); RDW Standard Deviation 60.7 fL (36.4-46.3); Red Blood Count 3.44 M/uL (4.2-5.4); White Blood Count 4.69 K/uL (4.8-10.8)
[2019-02-26 06:34] LABS: Mean Platelet Volume 10.6 fL (7.4-10.4); Platelet Count 94 K/uL (130-400)
[2019-02-26] MEDS ORDERED: PROMETHAZINE 12.5 MG/50.5 ML NSS IV ONE (06:37)
[2019-02-26 06:50] LABS: Albumin Level 2.7 gm/dl (3.4-5.0); BUN Creatinine Ratio 24.1 (10-20); Calcium 8.3 mg/dl (8.5-10.1); Creatinine Clr Calc Pharmacy 140.4 ml/min; Est GFR (African American) 129.8; Potassium 3.6 mmol/L (3.5-5.1)
[2019-02-26 06:53] LABS: Albumin Globulin Ratio 0.6 (0.9-2); Anisocytosis Present; Basophils # (auto) 0.01 K/uL (0-0.2); Basophils % (auto) 0.2 %; Bilirubin,Total 1.2 mg/dl (0.2-1); Globulin 4.2 gm/dl (2.5-4.0); Immature Granulocytes # (auto) 0.01 K/uL (0.00-0.02); Immature Granulocytes % (auto) 0.2 %; Lymphocytes # (auto) 0.27 K/uL (1.2-3.4); Lymphocytes % (auto) 5.8 %; Monocytes # (auto) 0.08 K/uL (0.11-0.59); Monocytes % (auto) 1.7 %; Neutrophils # (auto) 4.32 K/uL (1.4-6.5); Neutrophils % (auto) 92.1 %; Platelet Estimate Decreased (Normal); Poikilocytosis Present; Total Protein 6.9 gm/dl (6.4-8.2)
[2019-02-26] MEDS ORDERED: IOVERSOL 100ml IV PRN (07:21)
--- NOTE | 2019-02-26 07:33 | Emergency Department Note ---
Entered by Linwood Dillon acting as a scribe for History of Present Illness General Chief complaint: Vomiting Stated complaint: BAD REACTION TO CHEMO-VOMITING Source: patient History of Present Illness Onset (ago): hour(s) (24) Severity: severe Pain Consistency: + intermittent Maximum Pain Intensity: 4 Quality: + other (vomiting) Associated symptoms: + denies other symptoms (pain with urination) and + other (nausea, resolved fever, resolved back pain, resolved nose bleed) The patient is a 54 y/o female who presents to the ED w/ CC of intermittent, severe, vomiting beginning 24 hours ago. The patient states she is currently receiving chemotherapy and started a new chemotherapy on Saturday. She reports she was told she may vomit after starting it and may developed symptoms of a low- grade flu. The patient notes 24 hours she had an episode of severe vomiting that consisted mainly of liquid. She states she experienced waves of a nausea throughout the day yesterday and developed a fever of 102.9 degrees F and back pain. The patient reports she called the on-call oncologist last night and was told to take Tylenol and monitor her fever. She notes the Tylenol resolved her fever. The patient states she continued to have her waves of nausea throughout the night and had a second episode of vomiting a massive amount of fluid. She reports she also had a mild nose bleed this morning that resolved. The patient notes she normally takes Zofran for her nausea, but this time it is not helping her symptoms as well as it normally does. She states she has not eaten in 48 hours. 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 She notes she has a history of a d uodenal stent and is afraid that it is blocked. The patient states she was admitted for four days recently because she was constipated. She reports she had a BM in the hospital and only has had a small BM since discharge. The patient denies pain with urination. Home Medications Home Medications Medication Instructions Recorded Confirmed Type albuterol sulfate [ProAir HFA] 2 puff INHALATION Q4H PRN 04/09/18 02/26/19 History lansoprazole 30 mg PO QAM 04/09/18 02/16/19 History prochlorperazine maleate 10 mg PO Q6H PRN 04/09/18 02/16/19 History ondansetron HCl 4 mg tablet 4 mg PO Q6H PRN tab 06/25/18 02/16/19 History tramadol 50 mg tablet 50 mg PO Q6H PRN tab 06/25/18 02/16/19 History desloratadine 5 mg tablet 5 mg PO DAILY PRN #90 tab 01/29/19 02/16/19 Rx dexamethasone 1 mg PO DAILY 02/15/19 02/16/19 History polyethylene glycol 3350 [Miralax] 17 g PO DAILY PRN #30 ea 02/19/19 Rx prednisone PRN 02/26/19 History Allergies Allergy/AdvReac Type Severity Reaction Status Date / Time iodine Allergy Intermediate ITCHY/HIVES Verified 02/16/19 09:33 Iodinated Contrast- Oral and Allergy Unknown CONTRAST Verified 02/16/19 09:33 IV Dye MEDIA: ITCHY/HIVES Past Med/Surg History Medical History History of headache (Resolved) History of tear of ACL (anterior cruciate ligament) (Resolved) Pancreatic cancer (Chronic) Encounter for chemotherapy management (Acute) Started chemo on 01/21/18;Last chemo infusion started on 06/24/18 and will be removed on 06/26/18. 12/24/18 second round of chemo began again for four rou nds initially; probably 6 months at this point. History of stenosis of duodenum (Acute) Duodenal stent in place;Associated with pancreatic cancer;Placed by Dr. Radha Egan at [facility] Abnormal Pap smear of cervix (Chronic) Anxiety (Chronic) Asthma (Chronic) RARELY USES PRN INH Hyperlipidemia (Chronic) No meds currently Anemia GI bleed History of hyperlipidemia Surgical History History of biliary stent insertion (Acute) Associated with pancreatic cancer H/O LEEP (Resolved) History of colposcopy (Resolved) History of esophagogastroduodenoscopy (Resolved) With EUS and FNA of pancreatic lesion = pancreatic cancer diagnosis. Status post endometrial ablation (Resolved) For uterine fibroids History of ERCP History of surgery DUODENAL STENT History of surgery BILIARY DRAINAGE TUBE PLACEMENT + REMOVAL Family History Mother , 73yo Asthma Deep vein thrombosis Father , 68yo Emphysema lung Brother Work place accident Brother No problems noted. Brother No problems noted. Brother No problems noted. Brother No problems noted. Sister Deep vein thrombosis Breast cancer Sister No problems noted. Son No problems noted. Son No problems noted. 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 and A total of 10 systems reviewed and were otherwise negative Physical Exam Vital Signs Vital Signs - 24 hr 02/26/19 05:31 02/26/19 06:53 02/26/19 07:00 Temperature 36.6 C Temperature Source Oral Sepsis Recent Fever Within 48 Hours No Sepsis Action Taken by Nursing No Action Required Pulse Rate 115 H Pulse Rate [Right] 98 H 96 H Pulse Rhythm Regular Pulse Rhythm [Right] Regular Pulse Strength Normal Pulse Strength [Right] Normal Respiratory Rate 20 18 16 Respiratory Effort / Characteristics Non-Labored Spontaneous Non-Labored Spontaneous Non-Labored Respiratory Depth Normal Normal Respiratory Pattern Regular Regular Regular Blood Pressure 95/64 L Blood Pressure [Right Arm] 116/73 110/80 Blood Pressure Mean 74 Blood Pressure Mean [Right Arm] 87 90 Blood Pressure Position Sitting Blood Pressure Position [Right Arm] Sitting Sitting Pulse Oximetry 97 96 98 Oxygen Delivery Method Room Air Room Air Room Air 02/26/19 07:34 Temperature Temperature Source Sepsis Recent Fever Within 48 Hours Sepsis Action Taken by Nursing Pulse Rate Pulse Rate [Right] 102 H Pulse Rhythm Pulse Rhythm [Right] Pulse Strength Pulse Strength [Right] Respiratory Rate 16 Respiratory Effort / Characteristics Non-Labored Respiratory Depth Normal Respiratory Pattern Blood Pressure Blood Pressure [Right Arm] 112/77 Blood Pressure Mean Blood Pressure Mean [Right Arm] 88 Blood Pressure Position Blood Pressure Position [Right Arm] Sitting Pulse Oximetry 99 Oxygen Delivery Method Room Air Vital signs reviewed. General: Chronically ill-appearing 54 y/o female, in no significant distress. HEENT: No scleral icterus, PERRLA, neck supple. Atraumatic. Cardiovascular: Tachycardic rate and regular rhythm, no extra sounds. Pulmonary: Clear to auscultation bilaterally, normal work of breathing. Abdomen: Soft, diffuse tenderness of the abdomen without significant tympani, distended, positive bowel sounds. Musculoskeletal: Atraumatic, no peripheral edema. Mild CVA tenderness. Neurologic: Patient awake alert and oriented x 3. Skin: Warm, dry, no rash Course Administered Medications Parenteral Electrolytes (Normosol-R) 1,000 mls @ 125 mls/hr IV .Q8H NICOLE Stop: 03/28/19 10:59 Last Admin: 02/26/19 19:28 Dose: 125 mls/hr Documented by: [id number] Infusion: 02/26/19 19:17 Dose: 125 mls/hr Documented by: [id number] Admin: 02/26/19 11:17 Dose: 125 mls/hr Documented by: [id number] Famotidine 20 mg/ Syringe 5 mls @ 2.5 mls/min IV BID NICOLE Stop: 03/28/19 20:59 Last Admin: 02/26/19 20:38 Dose: 2.5 mls/min Documented by: [id number] Discontinued Medications Diphenhydramine HCl (Benadryl) 50 mg IV NOW STA Stop: 02/26/19 05:46 Last Admin: 02/26/19 06:45 Dose: 50 mg Documented by: [id number] Famotidine (Pepcid 20mg Iv Push) 20 mg IV ONE STA Stop: 02/26/19 05:46 Last Admin: 02/26/19 06:44 Dose: 20 mg Documented by: [id number] Promethazine HCl 12.5 mg/ (Sodium Chloride) 50.5 mls @ 202 mls/hr IV NOW STA Stop: 02/26/19 05:59 Last Infusion: 02/26/19 07:00 Dose: 0 mls/hr Documented by: [id number] Admin: 02/26/19 06:45 Dose: 202 mls/hr Documented by: [id number] Sodium Chloride (Nss) 500 mls @ 999 mls/hr IV .Q31M NICOLE Stop: 02/26/19 06:15 Last Infusion: 02/26/19 07:31 Dose: 0 mls/hr Documented by: [id number] Admin: 02/26/19 07:00 Dose: 999 mls/hr Documented by: [id number] Sodium Chloride (Nss 1000ml) 1,000 mls @ 200 mls/hr IV .Q5H NICOLE Stop: 03/28/19 05:59 Last Infusion: 02/26/19 11:24 Dose: 0 mls/hr Documented by: [id number] Admin: 02/26/19 07:32 Dose: 200 mls/hr Documented by: [id number] Heparin Sodium/Dextrose (Heparin Sodium/Dextrose) 25,000 units in 500 mls @ 25 mls/hr IV .Q20H NICOLE; Protocol Stop: 03/28/19 10:44 Last Titration: 02/26/19 14:22 Dose: 0 units/hr, 0 mls/hr Documented by: [id number] Cosigned by: [id number] Admin: 02/26/19 11:17 Dose: 1,250 units/hr, 25 mls/hr Documented by: [id number] Cosigned by: [id number] Heparin Sodium (Porcine) 5,000 (units/ Syringe) 5 mls @ 10 mls/min IV ONE ONE Stop: 02/26/19 11:01 Last Admin: 02/26/19 11:18 Dose: 10 mls/min Documented by: [id number] Cosigned by: [id number] Promethazine HCl (Phenergan) Confirm Administered Dose 12.5 mg IV .STK-MED ONE Stop: 02/26/19 06:38 Last Admin: 02/26/19 06:54 Dose: Not Given Documented by: [id number] Medical Decision Making Differential Diagnosis Differential diagnosis: Etiologies such as gastroenteritis, food borne illness, infections, appendicitis, diverticulitis, inflammatory bowel disease, bowel obstruction, GI bleed, biliary pathology, as well as others were entertained. Medical Records Attestation: I reviewed the patient's medical records. Home Medications Current Medication List: was personally reviewed by me Laboratory Data Attestation: I reviewed the patient's lab results. Result diagrams: 02/26/19 06:17 08/22/19 06:17 Lab Results 02/26/19 02/26/19 02/26/19 Range/Units 06:17 06:17 06:17 WBC 4.69 L (4.8-10.8) K/uL RBC 3.44 L (4.2-5.4) M/uL Hgb 9.8 L (12.0-16.0) g/dL Hct 29.7 L (37-47) % MCV 86.3 (80-100) fL MCH 28.5 (25-34) pg MCHC 33.0 (32-36) g/dL RDW Std Deviation 60.7 H (36.4-46.3) fL RDW Coeff of Patrick 19.1 H (11.5-14.5) % Plt Count 94 L (130-400) K/uL MPV 10.6 H (7.4-10.4) fL Immature Gran % (Auto) 0.2 % Neut % (Auto) 92.1 % Lymph % (Auto) 5.8 % Dodge % (Auto) 1.7 % Eos % (Auto) 0.0 % Baso % (Auto) 0.2 % Immature Gran # (Auto) 0.01 (0.00-0.02) K/uL Neut # (Auto) 4.32 (1.4-6.5) K/uL Lymph # (Auto) 0.27 L (1.2-3.4) K/uL Dodge # (Auto) 0.08 L (0.11-0.59) K/uL Eos # (Auto) 0.00 (0-0.5) K/uL Baso # (Auto) 0.01 (0-0.2) K/uL Platelet Estimate Decreased L (Normal) Poikilocytosis Present Anisocytosis Present Sodium 135 L (136-145) mmol/L Potassium 3.6 (3.5-5.1) mmol/L Chloride 100 (98-107) mmol/L Carbon Dioxide 30 (21-32) mmol/L Anion Gap 5.0 (3-11) BUN 12 (7-18) mg/dl Creatinine 0.49 L (0.6-1.2) mg/dl Est Cr Clr Drug Dosing 140.4 ml/min Est GFR ( Amer) 129.8 Est GFR (Non-Af Amer) 112.0 BUN/Creatinine Ratio 24.1 H (10-20) Glucose 102 H (70-99) mg/dl Calcium 8.3 L (8.5-10.1) mg/dl Magnesium 2.1 (1.8-2.4) mg/dl Total Bilirubin 1.2 H (0.2-1) mg/dl AST 29 (15-37) U/L ALT 34 (12-78) U/L Alkaline Phosphatase 156 H (45-117) U/L Total Protein 6.9 (6.4-8.2) gm/dl Albumin 2.7 L (3.4-5.0) gm/dl Globulin 4.2 H (2.5-4.0) gm/dl Albumin/Globulin Ratio 0.6 L (0.9-2) Lipase 30 L (73-393) U/L Imaging Data Radiologist's Impression: CT SCAN OF THE ABDOMEN AND PELVIS WITH IV CONTRAST CLINICAL HISTORY: Pancreatic cancer. Duodenal stent. Vomiting. COMPARISON STUDY: Recent prior abdominal CT scans, most recently dated 02/16/2019. TECHNIQUE: Following the IV administration of 93 cc of atrophy 20, CT scan of the abdomen and pelvis is performed from the lung bases to the proximal femora. Images are reviewed in the axial, sagittal, and coronal planes. IV contrast was administered without complication. The patient was reportedly premedicated for history of contrast allergy. A dose lowering technique was utilized adhering to the principles of ALARA. CT DOSE: 412.64 mGy.cm FINDINGS: Lung bases: The heart is mildly enlarged and without pericardial effusion. There are small right and trace left pleural effusions with associated atelectasis. Numerous foci of pleural-based nodularity are again seen at the right lung base. There is no airspace consolidation typical for pneumonia. A calcified granuloma is seen in the right lower lobe. A small hiatal hernia is noted. Large esophageal varices are observed. Liver: The contrast-enhanced liver is normal in size, contour, and attenuation. Mild intrahepatic biliary ductal dilatation and pneumobilia are again noted. Pneumobilia suggests patency of a common bile duct stent. 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 The intrahepatic portal branches are patent. The hepatic veins are clear. The splenic vein appears patent. Gallbladder: Unremarkable. Spleen: The spleen is enlarged, measuring 15.7 cm in length. Pancreas: The pancreas is atrophic. The pancreatic duct is normal in caliber. There is abnormal soft tissue identified between the pancreatic head and the duodenum, likely related to the patient's known pancreatic cancer. This is located at the level of the duodenal stent. Adrenal glands: Unremarkable. Kidneys: The contrast-enhanced kidneys demonstrate mild cortical atrophy and are without hydronephrosis. The kidneys enhance symmetrically. Abdominal vasculature: The abdominal aorta is normal in course and caliber. 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 Stomach and bowel: A duodenal stent is unchanged in position. There is increasing distention of the stomach as compared to previous suggesting duodenal stent dysfunction/gastric outlet obstruction. The small bowel loops are normal in caliber. There is moderate colonic fecal retention. The imaged portions of the appendix are grossly unremarkable. Peritoneum: There is a small volume of abdominopelvic ascites. This has not appreciably changed from 02/16/2019. No intraperitoneal free air is seen. There is evidence of extensive peritoneal carcinomatosis. Numerous peritoneal implants are unchanged. Lymphadenopathy: None. Pelvic viscera: The bladder is decompressed and grossly unremarkable. A peritoneal implant versus fibroid is suggested involving the uterine fundus. No adnexal lesion is identified. A nabothian cyst is incidentally noted. Skeletal structures: The skeletal structures are osteopenic. There is grade 1 anterolisthesis at L5-S1. Mild/moderate lumbosacral spondylosis is observed. Sclerotic change is noted in the sacroiliac joints. No lytic or blastic lesions are seen. IMPRESSION: 1. A duodenal stent is unchanged in position. There is increasing distention of the stomach as compared to 02/16/2019. This suggests stent dysfunction/gastric outlet obstruction. 2. A common bile duct stent is in place. Pneumobilia suggests patency of the stent. 3. Changes of peritoneal carcinomatosis are again noted and similar to 02/16/2019. 4. There is a small volume of abdominopelvic ascites, also not significantly c hanged. 5. Abnormal soft tissue between the pancreatic head and the duodenum at the level of the duodenal stent likely corresponds to the patient's primary neoplasm. 6. Pleural-based nodularity at the right lung base is unchanged and consistent with pleural metastatic disease. There are associated bibasilar pleural effusions. 7. Esophageal varices and splenomegaly. 8. 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 The intrahepatic portal veins are patent. 9. Additional findings as above. Electronically signed by: Glenn Gonsalves M.D. 02/26/2019 7:43 AM Dictated: 02/26/19724 Transcribed: 02/26/19724 Blood Pressure Blood Pressure Findings: Normal blood pressure Blood Pressure Disposition: did not require urgent referral MDM Narrative This patient was evaluated and appeared to be in no significant distress. IV access was obtained and laboratory work was drawn. The patient was placed on the combo welder. Patient is found to have somewhat stable vital signs. She was hydrated with normal saline solution, given IV Phenergan for her nausea. CT imaging of the abdomen and pelvis was performed with IV contrast however the patient requires Benadryl pretreatment. Patient's laboratory work reveals a mild leukopenia and anemia. CT imaging reveals a likely gastric outlet obstruction. Given the patient's duodenal stent and recent CT imaging, I did speak with Dr. Quezada of gastroenterology. He feels the patient is stable to stay at [facility] to try and discern the etiology of the obstruction. IV fluids were continued. Findings were discussed with the patient and family at the bedside. The hospitalist, Dr. Gutierrez, was consulted for admission and further management. Impression & Plan Pancreatic cancer, Gastric outlet obstruction Discharge Plan Visit Data *Final* Discharge Date/Time: 02/26/19 10:12 Chief Complaint: Vomiting Stated Complaint: BAD REACTION TO CHEMO-VOMITING ED Provider: Jamilah Sierra Discharge Problem: Pancreatic cancer, Gastric outlet obstruction Patient Disposition: Admitted As Inpatient Discharge Instructions Interventions: ED Discharge Assessment Last Done: 02/26/19 10:12 Discharge Problem: Pancreatic cancer Qualifiers: Pancreatic malignancy location: unspecified Qualified Code(s): C25.9 - Malignant neoplasm of pancreas, unspecified The scribe's documentation has been prepared under my direction and personally reviewed by me in its entirety. I confirm that the note above accurately reflects all work, treatment, procedures, and medical decision making performed by me.
--- NOTE | 2019-02-26 07:44 | CT Scan Report ---
CT SCAN OF THE ABDOMEN AND PELVIS WITH IV CONTRAST CLINICAL HISTORY: Pancreatic cancer. Duodenal stent. Vomiting. COMPARISON STUDY: Recent prior abdominal CT scans, most recently dated 02/16/2019. TECHNIQUE: Following the IV administration of 93 cc of atrophy 20, CT scan of the abdomen and pelvis is performed from the lung bases to the proximal femora. Images are reviewed in the axial, sagittal, and coronal planes. IV contrast was administered without complication. The patient was reportedly pre medicated for history of contrast allergy. A dose lowering technique was utilized adhering to the meño Rae. CT DOSE: 412.64 mGy.cm FINDINGS: Lung bases: The heart is mildly enlarged and without pericardial effusion. There are small right and trace left pleural effusions with associated atelectasis. Numerous foci of pleural-based nodularity are again seen at the right lung base. There is no airspace consolidation typical for pneumonia. A ca lcified granuloma is seen in the right lower lobe. A small hiatal hernia is noted. Large esophageal v arices are observed. Liver: The contrast-enhanced liver is normal in size, contour, and attenuation. Mild intrahepatic nickie iary ductal dilatation and pneumobilia are again noted. Pneumobilia suggests patency of a common bile duct stent. 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 The intrahepa tic portal branches are patent. The hepatic veins are clear. The splenic vein appears patent. Gallbladder: Unremarkable. Spleen: The spleen is enlarged, measuring 15.7 cm in length. Pancreas: The pancreas is atrophic. The pancreatic duct is normal in caliber. There is abnormal soft tissue identified between the pancreatic head and the duodenum, likely related to the patient's known pancreatic cancer. This is located at the level of the duodenal stent. Adrenal glands: Unremarkable. Kidneys: The contrast-enhanced kidneys demonstrate mild cortical atrophy and are without hydronephros is. The kidneys enhance symmetrically. Abdominal vasculature: The abdominal aorta is normal in course and caliber. 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 Stomach and bowel: A duodenal stent is unchanged in position. There is increasing distention of the s tomach as compared to previous suggesting duodenal stent dysfunction/gastric outlet obstruction. The small bowel loops are normal in caliber. There is moderate colonic fecal retention. The imaged portio ns of the appendix are grossly unremarkable. Peritoneum: There is a small volume of abdominopelvic ascites. This has not appreciably changed from 02/16/2019. No intraperitoneal free air is seen. There is evidence of extensive peritoneal carcinomato sis. Numerous peritoneal implants are unchanged. Lymphadenopathy: None. Pelvic viscera: The bladder is decompressed and grossly unremarkable. A peritoneal implant versus fi broid is suggested involving the uterine fundus. No adnexal lesion is identified. A nabothian cyst i s incidentally noted. Skeletal structures: The skeletal structures are osteopenic. There is grade 1 anterolisthesis at L5-S 1. Mild/moderate lumbosacral spondylosis is observed. Sclerotic change is noted in the sacroiliac tatiana nts. No lytic or blastic lesions are seen. IMPRESSION: 1. A duodenal stent is unchanged in position. There is increasing distention of the stomach as compar ed to 02/16/2019. This suggests stent dysfunction/gastric outlet obstruction. 2. A common bile duct stent is in place. Pneumobilia suggests patency of the stent. 3. Changes of peritoneal carcinomatosis are again noted and similar to 02/16/2019. 4. There is a small volume of abdominopelvic ascites, also not significantly changed. 5. Abnormal soft tissue between the pancreatic head and the duodenum at the level of the duodenal joleen nt likely corresponds to the patient's primary neoplasm. 6. Pleural-based nodularity at the right lung base is unchanged and consistent with pleural metastati c disease. There are associated bibasilar pleural effusions. 7. Esophageal varices and splenomegaly. 8. 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 The intrahe patic portal veins are patent. 9. Additional findings as above. Electronically signed by: Glenn Gonsalves M.D. 02/26/2019 7:43 AM
[2019-02-26] MEDS ORDERED: ONDANSETRON INJ 2 MG/ML 2 ML VIAL IV PRN (10:30)
[2019-02-26] MEDS ORDERED: MoRPHine SULFATE 4 MG/ML 1 ML CARP\\VIAL IV PRN (10:30)
[2019-02-26] MEDS ORDERED: ALBUTEROL HFA INHALER 8.5 GM INH PRN (10:45)
[2019-02-26] MEDS ORDERED: HEPARIN SODIUM/DEXTROSE 25,000 UNITS/500 ML BAG IV SCH (10:45)
[2019-02-26] MEDS ORDERED: HEPARIN IV BOLUS 5,000 UNITS in SYRINGE 0 ML IV ONE (11:00)
[2019-02-26] MEDS: NORMOSOL-R 1,000 ML IV SCH ×2 (11:17→19:28)
[2019-02-26] MEDS ORDERED: CHLORASEPTIC 1.4% SOLN 180 ML BTL MT PRN (11:30)
[2019-02-26] MEDS ORDERED: ACETAMINOPHEN 1,000 MG/100 ML VIAL IV PRN (12:17)
--- NOTE | 2019-02-26 12:35 | History & Physical Report ---
Date of Service February 26, 2019 Assessment & Plan (1) Gastric outlet obstruction: CT a/p on 02/26 showed the duodenal stent in an unchanged position; however, the stomach was distended suggesting stent dysfunction/gastric outlet obstruction. - NG tube placed for comfort - Oncology and GI consulted - Reaching out to [facility] physicians for further recs - Pain control (2) Portal vein thrombosis: Seen on CT a/p on 02/26; new from prior scan on 02/16. - Heparin gtt (3) Malignant neoplasm of pancreas: Metastatic and progressing pancreatic cancer. First round of gemcitabine/Abraxane given on Saturday, 02/23. - Monitor CBC - Onc consult as above History of Present Illness Primary Care Provider: Hammad Mathis MD 54yo F w/ hx of metastatic pancreatic cancer who presents with gastric outlet obstruction. She reports that she has continually felt nauseated and ill for some time. She underwent her new chemotherapy on 02/23/2019 and felt nauseated; however, she started throwing up yesterday at approx. 4:30am. She reports the emesis was clear liquid, no blood or coffee grounds. She felt ill throughout the day, and called the oncologist who reported to her to see him the next day; however, she has not been able to keep anything down since then and had another large, watery emesis this morning, causing her to present to the ED. In the ED, a CT a/p showed a gastric outlet obstruction near the site of her duodenal stent along with gastric distension. Allergies Allergy/AdvReac Type Severity Reaction Status Date / Time iodine Allergy Intermediate ITCHY/HIVES Verified 02/16/19 09:33 Iodinated Contrast- Oral and Allergy Unknown CONTRAST Verified 02/16/19 09:33 IV Dye MEDIA: ITCHY/HIVES Home Medications Home Medications Medication Instructions Recorded Confirmed Type albuterol sulfate [ProAir HFA] 2 puff INHALATION Q4H PRN 04/09/18 02/26/19 History lansoprazole 30 mg PO QAM 04/09/18 02/16/19 History prochlorperazine maleate 10 mg PO Q6H PRN 04/09/18 02/16/19 History ondansetron HCl 4 mg tablet 4 mg PO Q6H PRN tab 06/25/18 02/16/19 History tramadol 50 mg tablet 50 mg PO Q6H PRN tab 06/25/18 02/16/19 History desloratadine 5 mg tablet 5 mg PO DAILY PRN #90 tab 01/29/19 02/16/19 Rx dexamethasone 1 mg PO DAILY 02/15/19 02/16/19 History polyethylene glycol 3350 [Miralax] 17 g PO DAILY PRN #30 ea 02/19/19 Rx prednisone PRN 02/26/19 History Past Med/Surg History Medical History History of headache (Resolved) History of tear of ACL (anterior cruciate ligament) (Resolved) Pancreatic cancer (Chronic) Encounter for chemotherapy management (Acute) Started chemo on 01/21/18;Last chemo infusion started on 06/24/18 and will be removed on 06/26/18. 12/24/18 second round of chemo began again for four rounds initially; probably 6 months at this point. History of stenosis of duodenum (Acute) Duodenal stent in place;Associated with pancreatic cancer;Placed by Dr. Radha Egan at [facility] Abnormal Pap smear of cervix (Chronic) Anxiety (Chronic) Asthma (Chronic) RARELY USES PRN INH Hyperlipidemia (Chronic) No meds currently Anemia GI bleed History of hyperlipidemia Surgical History History of biliary stent insertion (Acute) Associated with pancreatic cancer H/O LEEP (Resolved) History of colposcopy (Resolved) History of esophagogastroduodenoscopy (Resolved) With EUS and FNA of pancreatic lesion = pancreatic cancer diagnosis. Status post endometrial ablation (Resolved) For uterine fibroids History of ERCP History of surgery DUODENAL STENT History of surgery BILIARY DRAINAGE TUBE PLACEMENT + REMOVAL Family History Mother , 73yo Asthma Deep vein thrombosis Father , 68yo Emphysema lung Brother Work place accident Brother No problems noted. Brother No problems noted. Brother No problems noted. Brother No problems noted. Sister Deep vein thrombosis Breast cancer Sister No problems noted. Son No problems noted. Son No problems noted. 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 [employer] Other Information That Helps Us Care for You: No Feels Safe at Home: Yes Safety Concerns: Feels Safe At This Time Smoking Status: Never smoker Do You Dip or Chew Tobacco: No ; Second Hand Exposure: No ; Tobacco Cessation Education Requested by Patient: No Hx Alcohol Use: No Hx Substance Use: No caffeine: Yes (1 cup/day) during the past year weight has: decreased > 10 lbs Review of Systems Constitutional: + fever (102.9 on Saturday); no chills and no sweats Eyes: no diplopia Ear, Nose, Mouth, Throat: no ear trauma, no nasal discharge and no dental pain Respiratory: no cough, no chest congestion and no dyspnea Cardiovascular: no chest pain, no dyspnea on exertion, no palpitations and no syncope Gastrointestinal: + abdominal pain, + belching, + bloating, + nausea and + vomiting; no constipation, no diarrhea/loose stools, no blood in stools and no melena Musculoskeletal: no back pain, no joint pain and no muscle weakness Integumentary: no rash, no skin ulcer and no erythema Neurologic: + generalized weakness; no loss of sensation, no numbness and no paresthesia Psychiatric: no depression and no anxiety Endocrine: + fatigue; no polydipsia and no polyphagia Physical Exam Constitutional: WD/WN, vitals as above + acute distress and + ill appearing Eyes: EOM intact bilaterally; no conjunctival abnormality ENMT: external ear and nose normal, oropharynx normal Neck: trachea midline, no thyromegaly normal visual inspection Respiratory: normal respiratory effort, lungs clear to auscultation no respiratory distress Cardiovascular: Rate/Rhythm: regular rhythm and + tachycardic Heart Sounds: normal S1 and normal S2; no murmur Vessels: no JVD Extremities: no edema Gastrointestinal (Abdomen): Inspection/Auscultation: + abdomen distended; + abdomen abnormal to inspection and + abnormal bowel sounds Percussi on/Palpation: + abdomen tender and abdomen soft; no guarding and abdomen not rigid Musculoskeletal: no cyanosis or clubbing, extremities motor strength 5/5 Skin: no rashes, warm and dry Neurologic: moves all extremities and awake Psychiatric: Orientation: alert, oriented to person and cooperative Results & Data Vital Signs (Past 12 Hours) Vital Signs Temp Pulse Pulse Resp BP BP BP 02/26/19 10:38 36.9 C 97 H 18 92/56 L 02/26/19 10:12 02/26/19 10:00 93 H 17 104/68 02/26/19 09:23 93 H 02/26/19 08:52 105 H 18 104/80 02/26/19 07:34 102 H 16 112/77 02/26/19 07:00 96 H 16 110/80 02/26/19 06:53 98 H 18 116/73 02/26/19 05:31 36.6 C 115 H 20 95/64 L Pulse Ox 02/26/19 10:38 98 02/26/19 10:12 98 02/26/19 10:00 98 02/26/19 09:23 98 02/26/19 08:52 98 02/26/19 07:34 99 02/26/19 07:00 98 02/26/19 06:53 96 02/26/19 05:31 97 PG Care Time/CCT Total # of Minutes Spent Total Time Spent with Patient: Total time spent is greater than 50% in coordination of care (as documented) at patient's floor/unit and/or counseling patient:
--- NOTE | 2019-02-26 12:58 | XRay Report ---
XR KUB/Abdomen 1 view CLINICAL HISTORY: NG tube placement COMPARISON STUDY: 02/16/2019 FINDINGS: There is been interval placement of a nasogastric tube which is positioned within the stoma ch. A duodenal stent and biliary stent are again visualized. There are trace bilateral pleural effusi ons with basilar atelectasis. There is a left-sided A-Port catheter. IMPRESSION: Interval placement of a nasogastric tube which is positioned within the stomach Electronically signed by: Evgeny Moreland M.D. 02/26/2019 12:57 PM
--- NOTE | 2019-02-26 14:13 | Palliative Care Consultation ---
Date of Consultation February 26, 2019 Assessment & Plan (1) Palliative care encounter: Patient is a 54-year-old female with metastatic pancreatic cancer-status post biliary stent and a duodenal stent for obstructive symptoms. Patient was diagnosed with pancreatic cancer in December 2017 when she presented in November with abdominal bloating and nausea. Patient had common bile duct obstruction at presentation-had a common bile duct stent placed. Patient had a proximal duodenal narrowing-had a duodenal stent placed. Patient was started on chemo- completed entire course with some response, however in November 2018 was found to have carcinomatosis. Patient is also seen at [facility], oncology here coordinates her chemo treatments with them. Patient's pain has been well controlled on tramadol 100 mg 4 times daily PRN for pain, 1 mg of Decadron for partial bowel obstruction as well as mood and appetite. Patient was last seen in clinic on 02/05 and again on 02/17 during her previous hospitalization for constipation and bowel obstruction. Patient presented to the emergency room today with nausea, vomiting and fever. Patient had a received a dose of chemotherapy on 02/23-these were expected side effects from the chemo. Patient's white count is not elevated, her hemoglobin is stable at 9.8. Of note her bilirubin is slightly increased at 1.2, was 0.5 prior. Patient currently has an NG tube to intermittent suction-brown particulate matter is continuously draining. CT scan showed significantly distended stomach C/W gastric outlet obstruction. Patient is currently on IV fluids and IV Pepcid. G I was consulted-patient is continue on NG suction and bowel rest. Oncology from [place] notified of this admission-if symptoms do not resolve over the next 24 hours she may require transfer to [facility] for further evaluation of her duodenal stent. Patient seen and examined in her room, patient's sister at bedside. NG tube is draining a significant amount of brown fluid with flocculent material. NG tube is causing some significant discomfort-patient using Chloraseptic spray as needed. Patient's NG tube did not appear to be draining-nursing was able to flush tube and it is now functioning. Patient agreeable to plan for bowel rest over the next 24 hours with transfer to [facility] if there is no improvement. Discussed with patient and sister that if patient is transferred and does need upper endoscopy to evaluate stent that they may want to ask about placement of a possible venting G-tube at that time. -Gastric outlet obstruction-status post duodenal stenting-stent does not appear to be functioning given her current gastric distention with decompressed small b owel. Patient on bowel rest with intermittent NG suction-if no improvement over the next 24 hours may need to transfer to [facility] for further evaluation and treatment of her nonfunctioning stent. -Abdominal pain-on IV Tylenol as needed, PRN morphine for severe pain -Portal vein thrombosis-this is not new per [facility]-attending plans to discontinue IV heparin. -Pancreatic cancer-diagnosed in December 2017-now with increasing carcinomatosis. Poorly tolerated new course of chemo on 02/23. -Constipation-likely due to tramadol-patient was on bowel regime at home-but only having small bowel movements -Biliary obstruction-status post biliary stent-bili slightly elevated-continue to monitor. Will continue to follow and assist patient with medical decision making. (2) Gastric outlet obstruction: (3) Portal vein thrombosis: (4) Malignant neoplasm of pancreas: History of Present Illness Reason for Consultation: Patient is followed in palliative care clinic as an outpatient. Consulted to assist with medical decision making in a patient Requesting Physician: Dr. Amari Gutierrez Attending Physician: Amari Gutierrez MD History of Present Illness Patient is a 54-year-old female with metastatic pancreatic cancer-status post biliary stent and a duodenal stent for obstructive symptoms. Patient was diagnosed with pancreatic cancer in December 2017 when she presented in November with abdominal bloating and nausea. Patient had common bile duct obstruction at presentation-had a common bile duct stent placed. Patient had a proximal duodenal narrowing-had a duodenal stent placed. Patient was started on chemo- completed entire course with some response, however in November 2018 was found to have carcinomatosis. 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 Patient's pain has been well controlled on tramadol 100 mg 4 times daily PRN for pain, 1 mg of Decadron for partial bowel obstruction as well as mood and appetite. Patient was last seen in clinic on 02/05 and again on 02/17 during her previous hospitalization for constipation and bowel obstruction. Patient presented to the emergency room today with nausea, vomiting and fever. Patient had a received a dose of chemotherapy on 02/23-these were expected side effects from the chemo. Patient's white count is not elevated, her hemoglobin is stable at 9.8. Of note her bilirubin is slightly increased at 1.2, was 0.5 prior. Patient currently has an NG tube to intermittent suction-brown particulate matter is continuously draining. CT scan showed significantly distended stomach C/W gastric outlet obstruction. Patient is currently on IV fluids and IV Pepcid. G I was consulted-patient is continue on NG suction and bowel rest. Oncology from [place] notified of this admission-if symptoms do not resolve over the next 24 hours she may require transfer to [facility] for further evaluation of her duodenal stent. Patient seen and examined in her room, patient's sister at bedside. NG tube is draining a significant amount of brown fluid with flocculent material. NG tube is causing some significant discomfort-patient using Chloraseptic spray as needed. Patient's NG tube did not appear to be draining-nursing was able to flush tube and it is now functioning. Patient agreeable to plan for bowel rest over the next 24 hours with transfer to [facility] if there is no improvement. Discussed with patient and sister that if patient is transferred and does need upper endoscopy to evaluate stent that they may want to ask about placement of a possible venting G-tube at that time. Patient still wishes to pursue aggressive management of current issues-we will remain a full code. Allergies Allergy/AdvReac Type Severity Reaction Status Date / Time iodine Allergy Intermediate ITCHY/HIVES Verified 02/16/19 09:33 Iodinated Contrast- Oral and Allergy Unknown CONTRAST Verified 02/16/19 09:33 IV Dye MEDIA: ITCHY/HIVES Home Medications Home Medications Medication Instructions Recorded Confirmed Type albuterol sulfate [ProAir HFA] 2 puff INHALATION Q4H PRN 04/09/18 02/26/19 History lansoprazole 30 mg PO QAM 04/09/18 02/16/19 History prochlorperazine maleate 10 mg PO Q6H PRN 04/09/18 02/16/19 History ondansetron HCl 4 mg tablet 4 mg PO Q6H PRN tab 06/25/18 02/16/19 History tramadol 50 mg tablet 50 mg PO Q6H PRN tab 06/25/18 02/16/19 History desloratadine 5 mg tablet 5 mg PO DAILY PRN #90 tab 01/29/19 02/16/19 Rx dexamethasone 1 mg PO DAILY 02/15/19 02/16/19 History polyethylene glycol 3350 [Miralax] 17 g PO DAILY PRN #30 ea 02/19/19 Rx prednisone PRN 02/26/19 History Patient History Medical History History of headache (Resolved) History of tear of ACL (anterior cruciate ligament) (Resolved) Pancreatic cancer (Chronic) Encounter for chemotherapy management (Acute) Started chemo on 01/21/18;Last chemo infusion started on 06/24/18 and will be removed on 06/26/18. 12/24/18 second round of chemo began again for four rounds initially; probably 6 months at this point. History of stenosis of duodenum (Acute) Duodenal stent in place;Associated with pancreatic cancer;Placed by Dr. Radha Egan at [facility] Abnormal Pap smear of cervix (Chronic) Anxiety (Chronic) Asthma (Chronic) RARELY USES PRN INH Hyperlipidemia (Chronic) No meds currently Anemia GI bleed History of hyperlipidemia Surgical History History of biliary stent insertion (Acute) Associated with pancreatic cancer H/O LEEP (Resolved) History of colposcopy (Resolved) History of esophagogastroduodenoscopy (Resolved) With EUS and FNA of pancreatic lesion = pancreatic cancer diagnosis. Status post endometrial ablation (Resolved) For uterine fibroids History of ERCP History of surgery DUODENAL STENT History of surgery BILIARY DRAINAGE TUBE PLACEMENT + REMOVAL Family History Mother , 73yo Asthma Deep vein thrombosis Father , 68yo Emphysema lung Brother Work place accident Brother No problems noted. Brother No problems noted. Brother No problems noted. Brother No problems noted. Sister Deep vein thrombosis Breast cancer Sister No problems noted. Son No problems noted. Son No problems noted. 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 That Helps Us Care for You: No Feels Safe at Home: Yes Safety Concerns: Feels Safe At This Time Smoking Status: Never smoker Do You Dip or Chew Tobacco: No ; Second Hand Exposure: No ; Tobacco Cessation Education Requested by Patient: No Hx Alcohol Use: No Hx Substance Use: No caffeine: Yes (1 cup/day) during the past year weight has: decreased > 10 lbs Review of Systems Constitutional: + fever, + malaise and + anorexia Eyes: no problem reported Ear, Nose, Mouth, Throat: Discomfort related to NG tube Respiratory: no problem reported Cardiovascular: no problem reported Gastrointestinal: + nausea, + vomiting and + constipation Genitourinary: no problem reported Musculoskeletal: no problem reported Integumentary: no problem reported Neurologic: no problem reported Hematologic / Lymphatic: Anemia Physical Exam Physical Exam: PE: Patient awake and alert and oriented, mild distress due to NG tube discomfort HEENT: EOMI, hearing within normal limits. NG tube in place-draining brown flocculent material Respiratory: Clear breath sounds, unlabored CV: Regular rate, no edema Abdomen: Distended, nontender on palpation, rare bowel sounds Extremities: No increased edema, full range of motion Neuro: Alert and oriented x4 Psych: Appropriate mood and affect Results & Data Vital Signs (Past 12 Hours) Vital Signs Temp Pulse Pulse Resp BP BP BP 02/26/19 12:19 98.4 F 97 H 16 92/56 L 02/26/19 10:38 98.4 F 97 H 18 92/56 L 02/26/19 10:12 02/26/19 10:00 93 H 17 104/68 02/26/19 09:23 93 H 02/26/19 08:52 105 H 18 104/80 02/26/19 07:34 102 H 16 112/77 02/26/19 07:00 96 H 16 110/80 02/26/19 06:53 98 H 18 116/73 02/26/19 05:31 97.9 F 115 H 20 95/64 L Pulse Ox 02/26/19 12:19 98 02/26/19 10:38 98 02/26/19 10:12 98 02/26/19 10:00 98 02/26/19 09:23 98 02/26/19 08:52 98 02/26/19 07:34 99 02/26/19 07:00 98 02/26/19 06:53 96 02/26/19 05:31 97 PG Care Time/CCT Total # of Minutes Spent Total Time Spent with Patient: Total time spent is greater than 50% in coordination of care (as documented) at patient's floor/unit and/or counseling patient: Time Spent Attending Total time spent 70 minutes with greater than 50% of the time spent at bedside discussing patient's current condition as well as discussing goals of care
--- NOTE | 2019-02-26 18:19 | Consultation Report ---
DATE OF CONSULTATION: 02/26/2019 REASON FOR EVALUATION: Bowel obstruction. HISTORY OF PRESENT ILLNESS: The patient is a 54-year-old with metastatic pancreatic cancer. She has a duodenal and biliary stent in place and has abdominal carcinomatosis. She was recently hospitalized with an ileus, which resolved. She is moving her bowels as an outpatient, but over the last 2 days has not been able to eat and has been vomiting bilious material. She presented to the Emergency Room where she was found to have markedly distended stomach that was full of fluid. Nasogastric tube was placed and a large amount of fluid was draining from her stomach. There is a question about whether there may be an obstruction of her duodenal stent or other cause for gastric outlet obstruction as the small bowel and colon looked decompressed. PAST MEDICAL HISTORY: Remarkable for the pancreatic cancer, portal vein thrombosis. MEDICATIONS: Albuterol, lansoprazole, prochlorperazine, Zofran, tramadol, dexamethasone, MiraLax, prednisone. ALLERGIES: IODINE. FAMILY HISTORY: Remarkable for mother with asthma and DVTs. Father had emphysema. Brother in a workplace accident. Has a sister with DVT and breast cancer. REVIEW OF SYSTEMS: Positive for abdominal distention, weakness and fatigue. PHYSICAL EXAMINATION: GENERAL: The patient appears in no acute distress. HEENT: She has nasogastric tube in her left nose. GASTROINTESTINAL: Abdomen has a radiation tattoo in the epigastric area. Abdomen is slightly distended, but dull to percussion. There is no palpable mass or tenderness. IMPRESSION AND PLAN: The patient has what appears to be gastric outlet obstruction. It is possible that her duodenal stent has been overgrown by the tumor. I would recommend nasogastric decompression overnight and then a barium injection of her stomach through a nasogastric tube tomorrow to assess the patency of the stomach and duodenum. I do not believe that doing a small bowel follow through would be needed, but if there are signs of obstruction, then she may need to go back to [facility] to have the stent manipulated or have another one added. If it appears to be patent, then we can potentially remove the tube and try liquids. We can also potentially scope her if it looks like it is open to see if there is anything else going on like an ulcer. We will follow the patient during her hospitalization. RADHA
[2019-02-26] MEDS: FAMOTIDINE 20 MG in SYRINGE 3 ML IV SCH (20:38)
[2019-02-26] MEDS ORDERED: HEPARIN 100 UNIT/ML 5ML FLUSH FLUSH PRN (22:49)
[2019-02-27] MEDS: NORMOSOL-R 1,000 ML IV SCH ×3 (03:30→20:06)
--- NOTE | 2019-02-27 07:22 | XRay Report ---
XR KUB/Abdomen 1 view CLINICAL HISTORY: Gastric outlet obstruction COMPARISON STUDY: 02/26/2019 FINDINGS: A duodenal stent and biliary stent are visualized. There is a nasogastric tube in stomach. There is no pathologic bowel dilatation. There is a lumbar levoscoliosis. IMPRESSION: No evidence of pathologic bowel dilatation. Electronically signed by: Evgeny Moreland M.D. 02/27/2019 7:20 AM
[2019-02-27 08:33] LABS: Hematocrit (blood only) 28.6 % (37-47); Mean Corpuscular Hgb Conc 31.5 g/dL (32-36); Mean Corpuscular Volume 89.4 fL (80-100); RDW Coefficient of Variation 19.1 % (11.5-14.5); RDW Standard Deviation 62.1 fL (36.4-46.3); White Blood Count 2.48 K/uL (4.8-10.8)
[2019-02-27 08:40] LABS: Basophils # (auto) 0.01 K/uL (0-0.2); Basophils % (auto) 0.4 %; Eosinophils # (auto) 0.02 K/uL (0-0.5); Eosinophils % (auto) 0.8 %; Immature Granulocytes # (auto) 0.01 K/uL (0.00-0.02); Immature Granulocytes % (auto) 0.4 %; Lymphocytes # (auto) 0.34 K/uL (1.2-3.4); Lymphocytes % (auto) 13.7 %; Mean Platelet Volume 10.3 fL (7.4-10.4); Monocytes # (auto) 0.06 K/uL (0.11-0.59); Monocytes % (auto) 2.4 %; Neutrophils # (auto) 2.04 K/uL (1.4-6.5); Neutrophils % (auto) 82.3 %; Platelet Count 77 K/uL (130-400)
[2019-02-27 09:01] LABS: Calcium 8.1 mg/dl (8.5-10.1); Creatinine Clr Calc Pharmacy 143.3 ml/min; Est GFR (African American) 130.7; Est GFR (Non-African American) 112.8; Magnesium 2.6 mg/dl (1.8-2.4); Potassium 3.8 mmol/L (3.5-5.1)
[2019-02-27 09:05] LABS: Anisocytosis Present; Ovalocytes 1+
[2019-02-27] MEDS: FAMOTIDINE 20 MG in SYRINGE 3 ML IV SCH ×2 (09:20→20:39)
--- NOTE | 2019-02-27 12:00 | Fluoroscopy Report ---
FL upper GI series wo air CLINICAL HISTORY: Duodenal stent blockage COMPARISON STUDY: CT scan abdomen pelvis dated 02/16/2019 FLUOROSCOPY TIME: 4.2 minutes. NUMBER OF FLUOROSCOPIC IMAGES: 18 FINDINGS: A duodenal stent and biliary enteric stent are visualized. Barium was administered via nasogastric tube. No gastric masses are visualized. The duodenal bulb appears normal. There is a high-grade post duoden al bulb stricture extending into the proximal portion the patient's duodenal stent IMPRESSION: 1. High-grade post duodenal bulb stricture, extending into the proximal aspect of the patient's duode nal stent. There is a meniscus sign present, and the stricture likely is secondary to neoplasm. . Electronically signed by: Evgeny Moreland M.D. 02/27/2019 11:59 AM
--- NOTE | 2019-02-27 12:20 | Discharge Summary ---
Date of Service February 27, 2019 Admission HPI Per Admitting Provider 54yo F w/ hx of metastatic pancreatic cancer who presents with gastric outlet obstruction. She reports that she has continually felt nauseated and ill for some time. She underwent her new chemotherapy on 02/23/2019 and felt nauseated; however, she started throwing up yesterday at approx. 4:30am. She reports the emesis was clear liquid, no blood or coffee grounds. She felt ill throughout the day, and called the oncologist who reported to her to see him the next day; however, she has not been able to keep anything down since then and had another large, watery emesis this morning, causing her to present to the ED. In the ED, a CT a/p showed a gastric outlet obstruction near the site of her duodenal stent along with gastric distension. Principal Diagnosis Gastric outlet obstruction from pancreatic cancer Discharge Exam Constitutional WD/WN, vitals as above + acute distress and + ill appearing Eyes EOM intact bilaterally; no conjunctival abnormality ENMT external ear and nose normal, oropharynx normal Neck trachea midline, no thyromegaly normal visual inspection Respiratory normal respiratory effort, lungs clear to auscultation no respiratory distress Cardiovascular Rate/Rhythm: regular rhythm and + tachycardic Heart Sounds: normal S1 and normal S2; no murmur Vessels: no JVD Extremities: no edema Gastrointestinal (Abdomen) Inspection/Auscultation: + abdomen distended; + abdomen abnormal to inspection and + abnormal bowel sounds Percussion/Palpation: + abdomen tender and abdomen soft; no guarding and abdomen not rigid Musculoskeletal no cyanosis or clubbing, extremities motor strength 5/5 Skin no rashes, warm and dry Neurologic moves all extremities and awake Psychiatric Orientation: alert, oriented to person and cooperative Discharge Data Allergies Allergy/AdvReac Type Severity Reaction Status Date / Time iodine Allergy Intermediate ITCHY/HIVES Verified 02/16/19 09:33 Iodinated Contrast- Oral and Allergy Unknown CONTRAST Verified 02/16/19 09:33 IV Dye MEDIA: ITCHY/HIVES Consultations 02/26/19 07:47 Consult Gastroenterology Stat ED Decision to Admit Stat 02/26/19 10:30 Consult Hematology Routine Consult Palliative Care Routine Ordered Studies 02/26/19 05:48 CT abd pelvis IV con only Stat 02/27/19 11:00 [place] upper GI series wo air Urgent Hospital Course (1) Gastric outlet obstruction: CT a/p on 02/26 showed the duodenal stent in an unchanged position; however, the stomach was distended suggesting stent dysfunction/gastric outlet obstruction. An upper GI series on 02/27 showed high grade stenosis proximal to the duodenal stent. Plan to transfer to [facility] for hopeful endoscopic therapy. - NG tube placed for comfort - Was consistently draining 500cc every shift of yellow-brown, feculent material. (2) Portal vein thrombosis: Seen on CT a/p on 02/26; in discussion with [facility], this is not a new finding. - Was on a heparin gtt for a few hours only. (3) Malignant neoplasm of pancreas: Metastatic and progressing pancreatic cancer. First round of gemcitabine/Abraxane given on Saturday, 02/23. - Monitor CBC - Plts were 77 and WBC was 2.1 on discharge. Not neutropenic at this time. Total Time Total Time Spent Total Time Spent (In Minutes): 60 Discharge Plan Discharge Items Reason For Visit: GASTRIC OUTLET OBSTRUCTION Discharge Diagnosis: Same Discharge Goals: Decrease discomfort Activity: Resume your previous activity Non-emergency contact: Primary Care Provider and Oncologist Call non-emergency contact if: your symptoms worsen Follow-up/Referrals: Hammad Mathis MD [Primary Care Provider] - Diet: Nothing by mouth Addtl Provider Instructions: Prescriptions: Continued albuterol sulfate [ProAir HFA] 90 mcg/actuation Hfa Aerosol Inhaler 2 puff INHALATION Q4H PRN (Reason: Wheezing) RF: 0 Discontinued ondansetron HCl [Zofran] 4 mg tablet 4 mg PO Q6H PRN (Reason: nausea and vomiting) RF: 0 desloratadine [Clarinex] 5 mg tablet 5 mg PO DAILY PRN (Reason: allergies) Qty: 90 RF: 3 lansoprazole 30 mg Capsule,Delayed Release(Dr/Ec) 30 mg PO QAM RF: 0 prochlorperazine maleate 10 mg Tablet 10 mg PO Q6H PRN (Reason: nausea/vomiting) RF: 0 tramadol 50 mg tablet 50 mg PO Q6H PRN (Reason: Pain) RF: 0 dexamethasone 1 mg tablet 1 mg PO DAILY RF: 0 polyethylene glycol 3350 [Miralax] 17 gram Powder In Packet 17 g PO DAILY PRN (Reason: constipation) Qty: 30 RF: 0 prednisone 20 mg tablet PRN (Reason: Allergic Symptoms) RF: 0 Stand-Alone Forms: [facility] Admission Data Admit Date/Time: 02/26/19 08:42 Attending Provider: Amari Gutierrez Admit Provider: Amari Gutierrez Primary Care Provider: Hammad Mathis Other Providers: Mauricio Quezada ; Amari Gutierrez ; Richard Santana ; Keke Chau Service: Medical
--- NOTE | 2019-02-27 13:44 | Palliative Care Progress Note ---
Date of Service February 27, 2019 Assessment & Plan (1) Palliative care encounter: Patient is a 54-year-old female with metastatic pancreatic cancer-status post biliary stent and a duodenal stent for obstructive symptoms. Patient was diagnosed with pancreatic cancer in December 2017 when she presented in November with abdominal bloating and nausea. Patient had common bile duct obstruction at presentation-had a common bile duct stent placed. Patient had a proximal duodenal narrowing-had a duodenal stent placed. Patient was started on chemo- completed entire course with some response, however in November 2018 was found to have carcinomatosis. Patient is also seen at [facility], oncology here co ordinates her chemo treatments with them. Patient's pain has been well controlled on tramadol 100 mg 4 times daily PRN for pain, 1 mg of Decadron for partial bowel obstruction as well as mood and appetite. Patient was last seen in clinic on 02/05 and again on 02/17 during her previous hospitalization for constipation and bowel obstruction. Patient presented to the emergency room today with nausea, vomiting and fever. Patient had a received a dose of chemotherapy on 02/23-these were expected side effects from the chemo. Patient's white count is not elevated, her hemoglobin is stable at 9.8. Of note her bilirubin is slightly increased at 1.2, was 0.5 prior. Patient currently has an NG tube to intermittent suction-brown particulate matter is continuously draining. CT scan showed significantly distended stomach C/W gastric outlet obstruction. Patient had upper GI studies-which revealed significant narrowing proximal to her duodenal stent. Patient is currently on IV fluids and IV Pepc id. Attending physician attempting to transfer patient to [place], await their acceptance of patient and bed availability Discussed yesterday with both patient and sister regarding asking about a ve nting G-tube-if it can be placed at the time that the stent is addressed - For future use -Gastric outlet obstruction-upper GI studies show significant narrowing proximal to duodenal stent. Patient on bowel rest with intermittent NG suction-plan is to transfer to [facility] for further evaluation and treatment. -Abdominal pain-on IV Tylenol as needed, PRN morphine for severe pain-avoiding opioids when possible -Portal vein thrombosis-this is not new per [facility]-attending plans to discontinue IV heparin. -Pancreatic cancer-diagnosed in December 2017-now with increasing carcinomatosis. P atient planning to continue chemo -Constipation-likely due to tramadol-patient was on bowel regime at home -Biliary obstruction-status post biliary stent-bili slightly elevated-continue to monitor. Plan for transfer to [facility]-patient will make appointment in outpatient palliative clinic for follow-up after discharge. (2) Gastric outlet obstruction: (3) Portal vein thrombosis: (4) Malignant neoplasm of pancreas: Subjective Patient seen and examined-patient's sister and friends at bedside. Collaborated with attending physician-we both went to radiology to review upper GI studies-shows severe narrowing proximal to the duodenal stent. At with patient, family, friends as well as attending physician at bedside-plan is to transfer to [facility] for further treatment. Patient reports she did move her bowels today-abdominal discomfort markedly improved. Patient continues to have NG tube to intermittent suction. Review of Systems Review of Systems: Denies fever, chills, chest pain, increased shortness of breath or worsening abdominal pain Physical Exam Physical Exam: PE: NAD HEENT: EOMI, hearing within normal limits, NG tube in place Respiratory: Unlabored CV: Regular rate, no edema Abdomen: No increased distention Neuro: Alert and oriented x4 Psych: Appropriate mood and affect Results & Data Vital Signs (Past 12 Hours) Vital Signs Temp Pulse Resp BP BP Pulse Ox 02/27/19 08:05 97.9 F 83 19 96/64 L 95 02/27/19 04:00 98.2 F 87 20 100/66 94 PG Care Time/CCT Total # of Minutes Spent Total Time Spent with Patient: Total time spent is greater than 50% in coordination of care (as documented) at patient's floor/unit and/or counseling patient: Time Spent Attending Total time spent 40 minutes with greater than 50% of the time at bedside reviewing upper GI studies, discussing treatment options as well as plan of care (1) Malignant neoplasm of pancreas Pancreatic malignancy location: unspecified Qualified Code(s): C25.9 - Malignant neoplasm of pancreas, unspecified
--- NOTE | 2019-02-27 14:55 | Hospitalist Progress Note ---
Date of Service February 27, 2019 Assessment & Plan (1) Gastric outlet obstruction: CT a/p on 02/26 showed the duodenal stent in an unchanged position; however, the stomach was distended suggesting stent dysfunction/gastric outlet obstruction. An upper GI series on 02/27 showed high grade stenosis proximal to the duodenal stent. Plan to transfer to [facility] for hopeful endoscopic therapy. - NG tube placed for comfort - Was consistently draining 500cc every shift of yellow-brown, feculent material. (2) Portal vein thrombosis: Seen on CT a/p on 02/26; in discussion with [facility], this is not a new finding. - Was on a heparin gtt for a few hours only. (3) Malignant neoplasm of pancreas: Metastatic and progressing pancreatic cancer. First round of gemcitabine/Abraxane given on Saturday, 02/23. - Monitor CBC - Plts were 77 and WBC was 2.1 on discharge. Not neutropenic at this time. Subjective Doing well this morning. Had a large BM. Review of Systems Review of Systems: All systems reviewed & are unremarkable except as noted in HPI & below Physical Exam Constitutional: WD/WN, vitals as above + acute distress and + ill appearing Eyes: EOM intact bilaterally; no conjunctival abnormality ENMT: external ear and nose normal, oropharynx normal Neck: trachea midline, no thyromegaly normal visual inspection Respiratory: normal respiratory effort, lungs clear to auscultation no respiratory distress Cardiovascular: Rate/Rhythm: regular rhythm and + tachycardic Heart Sounds: normal S1 and normal S2; no murmur Vessels: no JVD Extremities: no edema Gastrointestinal (Abdomen): Inspection/Auscultation: + abdomen distended; + abdomen abnormal to inspection and + abnormal bowel sounds Percussion/Palpation: + abdomen tender and abdomen soft; no guarding and abdomen not rigid Musculoskeletal: no cyanosis or clubbing, extremities motor strength 5/5 Skin: no rashes, warm and dry Neurologic: moves all extremities and awake Psychiatric: Orientation: alert, oriented to person and cooperative Results & Data Vital Signs (Past 12 Hours) Vital Signs Temp Pulse Resp BP BP Pulse Ox 02/27/19 08:05 36.6 C 83 19 96/64 L 95 02/27/19 04:00 36.8 C 87 20 100/66 94 PG Care Time/CCT Total # of Minutes Spent Total Time Spent with Patient: Total time spent is greater than 50% in coordination of care (as documented) at patient's floor/unit and/or counseling patient: 45 (1) Malignant neoplasm of pancreas Pancreatic malignancy location: unspecified Qualified Code(s): C25.9 - Malignant neoplasm of pancreas, unspecified
[2019-02-27] MEDS ORDERED: TPN/PPN CONSULT PHARMACY PRN (15:06)
[2019-02-27] MEDS ORDERED: DEXTROSE 10% 1,000 ML IV SCH (15:15)
--- NOTE | 2019-02-27 16:42 | Oncology Consultation ---
Date of Consultation February 27, 2019 Assessment & Plan (1) Gastric outlet obstruction: She is scheduled for an upper GI series today to determine if her stent is re-occluding. If so, she may need to be transferred to [place], where her initial stent was placed. She felt much better with the NG tube, which is encouraging. If she does not have a progressive stenosis, she will proceed with advancing diet. Present on Admission?: Yes (2) Malignant neoplasm of pancreas: We will need to address her gastric outlet obstruction symptoms prior to resuming chemo. Hopefully this can be done quickly, as I do not want her to delay treatment much further. For now, my office postponed her treatment for next week by 1 week. We will sort out her treatment plan next week. Present on Admission?: Yes History of Present Illness Reason for Consultation: Pancreatic cancer Nausea and vomiting Attending Physician: Amari Gutierrez MD History of Present Illness Ms. Klein is my patient. She is 54 and has a history of pancreatic cancer that is now metastatic with peritoneal carcinomatosis. She started second-line chemotherapy with gemcitabine and Abraxane on Saturday. She called overnight on Saturday complaining of a fever of 102. She had no other infectious symptoms, but was experiencing increasing abdominal distention and nausea. I had planned to bring her in to the office yesterday, but she opted to come to the ER instead. There, she was afebrile but was found to have gastric distention suggestive of progressive gastric outlet obstruction. She had an NG tube placed and felt considerably better this morning when I saw her. Her CT also showed a portal venous thrombosis with cavernous transformation. This had not been noted here previously but was seen on scans at [place] and is chronic. She denied any pain, fevers, or infectious symptoms this morning. Allergies Allergy/AdvReac Type Severity Reaction Status Date / Time iodine Allergy Intermediate ITCHY/HIVES Verified 02/16/19 09:33 Iodinated Contrast- Oral and Allergy Unknown CONTRAST Verified 02/16/19 09:33 IV Dye MEDIA: ITCHY/HIVES Home Medications Home Medications Medication Instructions Recorded Confirmed Type albuterol sulfate [ProAir HFA] 2 puff INHALATION Q4H PRN 04/09/18 02/26/19 History lansoprazole 30 mg PO QAM 04/09/18 02/16/19 History prochlorperazine maleate 10 mg PO Q6H PRN 04/09/18 02/16/19 History ondansetron HCl 4 mg tablet 4 mg PO Q6H PRN tab 06/25/18 02/16/19 History tramadol 50 mg tablet 50 mg PO Q6H PRN tab 06/25/18 02/16/19 History desloratadine 5 mg tablet 5 mg PO DAILY PRN #90 tab 01/29/19 02/16/19 Rx dexamethasone 1 mg PO DAILY 02/15/19 02/16/19 History polyethylene glycol 3350 [Miralax] 17 g PO DAILY PRN #30 ea 02/19/19 Rx prednisone PRN 02/26/19 History Patient History Medical History History of headache (Resolved) History of tear of ACL (anterior cruciate ligament) (Resolved) Pancreatic cancer (Chronic) Encounter for chemotherapy management (Acute) Started chemo on 01/21/18;Last chemo infusion started on 06/24/18 and will be removed on 06/26/18. 12/24/18 second round of chemo began again for four rounds initially; probably 6 months at this point. History of stenosis of duodenum (Acute) Duodenal stent in place;Associated with pancreatic cancer;Placed by Dr. Radha Egan at [facility] Abnormal Pap smear of cervix (Chronic) Anxiety (Chronic) Asthma (Chronic) RARELY USES PRN INH Hyperlipidemia (Chronic) No meds currently Anemia GI bleed History of hyperlipidemia Surgical History History of biliary stent insertion (Acute) Associated with pancreatic cancer H/O LEEP (Resolved) History of colposcopy (Resolved) History of esophagogastroduodenoscopy (Resolved) With EUS and FNA of pancreatic lesion = pancreatic cancer diagnosis. Status post endometrial ablation (Resolved) For uterine fibroids History of ERCP History of surgery DUODENAL STENT History of surgery BILIARY DRAINAGE TUBE PLACEMENT + REMOVAL Family History Mother , 73yo Asthma Deep vein thrombosis Father , 68yo Emphysema lung Brother Work place accident Brother No problems noted. Brother No problems noted. Brother No problems noted. Brother No problems noted. Sister Deep vein thrombosis Breast cancer Sister No problems noted. Son No problems noted. Son No problems noted. 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 [employer] Other Information That Helps Us Care for You: No Feels Safe at Home: Yes Safety Concerns: Feels Safe At This Time Smoking Status: Never smoker Do You Dip or Chew Tobacco: No ; Second Hand Exposure: No ; Tobacco Cessation Education Requested by Patient: No Hx Alcohol Use: No Hx Substance Use: No caffeine: Yes (1 cup/day) during the past year weight has: decreased > 10 lbs Review of Systems Constitutional: + fatigue and + anorexia; no fever Respiratory: no cough and no dyspnea Cardiovascular: + edema; no chest pain Gastrointestinal: as per Subjective / HPI Musculoskeletal: no back pain No bone pain Integumentary: no rash Neurologic: no dizziness and no headache(s) Physical Exam Constitutional: + ill appearing (chronically) and + thin; no acute distress Eyes: + anicteric sclerae and EOM intact bilaterally ENMT: Mouth: no oral mucosal abnormality NG tube in place Respiratory: normal respiratory effort, lungs clear to auscultation Cardiovascular: RRR, no murmur, no edema Gastrointestinal (Abdomen): Inspection/Auscultation: + abdomen distended and + hypoactive bowel sounds Percussion/Palpation: abdomen soft; abdomen nontender Skin: no rashes, warm and dry Psychiatric: A+Ox3, euthymic affect Results & Data Vital Signs (Past 12 Hours) Vital Signs Temp Pulse Resp BP Pulse Ox 02/27/19 15:50 36.7 C 68 20 101/68 98 02/27/19 08:05 36.6 C 83 19 96/64 L 95 Laboratory Results Laboratory Tests 02/26/19 02/27/19 06:17 08:10 WBC 2.48 L Hgb 9.0 L Plt Count 77 L Total Bilirubin 1.2 H Albumin 2.[address] A/P, 02/26/19: IMPRESSION: 1. A duodenal stent is unchanged in position. There is increasing distention of the stomach as compared to 02/16/2019. This suggests stent dysfunction/gastric outlet obstruction. 2. A common bile duct stent is in place. Pneumobilia suggests patency of the stent. 3. Changes of peritoneal carcinomatosis are again noted and similar to 02/16/2019. 4. There is a small volume of abdominopelvic ascites, also not significantly changed. 5. Abnormal soft tissue between the pancreatic head and the duodenum at the level of the duodenal stent likely corresponds to the patient's primary neoplasm. 6. Pleural-based nodularity at the right lung base is unchanged and consistent with pleural metastatic disease. There are associated bibasilar pleural effusions. 7. Esophageal varices and splenomegaly. 8. 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 The intrahepatic portal veins are patent. 9. Additional findings as above. (1) Malignant neoplasm of pancreas Pancreatic malignancy location: unspecified Qualified Code(s): C25.9 - Malignant neoplasm of pancreas, unspecified
[2019-02-27] MEDS ORDERED: TPN/PPN CONSULT PHARMACY STA (18:39)
[2019-02-28] MEDS: NORMOSOL-R 1,000 ML IV SCH ×2 (04:17→12:58)
[2019-02-28 06:40] LABS: Hematocrit (blood only) 25.7 % (37-47); Hemoglobin 8.1 g/dL (12.0-16.0); Mean Corpuscular Hgb Conc 31.5 g/dL (32-36); Mean Corpuscular Volume 88.9 fL (80-100); RDW Coefficient of Variation 18.7 % (11.5-14.5); RDW Standard Deviation 61.2 fL (36.4-46.3); Red Blood Count 2.89 M/uL (4.2-5.4); White Blood Count 1.44 K/uL (4.8-10.8)
[2019-02-28 06:41] LABS: Basophils # (auto) 0.01 K/uL (0-0.2); Basophils % (auto) 0.7 %; Eosinophils # (auto) 0.02 K/uL (0-0.5); Eosinophils % (auto) 1.4 %; Immature Granulocytes # (auto) 0.01 K/uL (0.00-0.02); Immature Granulocytes % (auto) 0.7 %; Lymphocytes # (auto) 0.23 K/uL (1.2-3.4); Mean Platelet Volume 9.9 fL (7.4-10.4); Monocytes # (auto) 0.08 K/uL (0.11-0.59); Monocytes % (auto) 5.6 %; Neutrophils # (auto) 1.09 K/uL (1.4-6.5); Neutrophils % (auto) 75.6 %; Platelet Count 59 K/uL (130-400)
[2019-02-28 07:16] LABS: BUN Creatinine Ratio 32.9 (10-20); Calcium 7.8 mg/dl (8.5-10.1); Creatinine Clr Calc Pharmacy 163.7 ml/min; Est GFR (African American) 136.6; Est GFR (Non-African American) 117.8; Magnesium 2.5 mg/dl (1.8-2.4); Phosphorus 2.3 mg/dl (2.5-4.9); Potassium 3.8 mmol/L (3.5-5.1)
--- NOTE | 2019-02-28 09:57 | Hospitalist Progress Note ---
Date of Service February 28, 2019 Assessment & Plan (1) Gastric outlet obstruction: CT a/p on 02/26 showed the duodenal stent in an unchanged position; however, the stomach was distended suggesting stent dysfunction/gastric outlet obstruction. An upper GI series on 02/27 showed high grade stenosis proximal to the duodenal stent. Plan to transfer to [facility] for hopeful endoscopic therapy. - NG tube placed for comfort - Was consistently draining 500cc every shift of yellow-brown, feculent material. - Still weak today; still with large amounts of output; however, now mixed with what the patient is drinking to keep her throat from getting sore. (2) Portal vein thrombosis: Seen on CT a/p on 02/26; in discussion with [facility], this is not a new finding. - Was on a heparin gtt for a few hours only. (3) Malignant neoplasm of pancreas: Metastatic and progressing pancreatic cancer. First round of gemcitabine/Abraxane given on Saturday, 02/23. - Monitor CBC - Plts were 59 and WBC was 1.44 on discharge. Not neutropenic at this time, though trending in that direction. Subjective Feeling weak this morning. Had good BMs. Small amount of blood, but on the edge, not mixed in. Review of Systems Review of Systems: All systems reviewed & are unremarkable except as noted in HPI & below Physical Exam Constitutional: WD/WN, vitals as above + acute distress and + ill appearing Eyes: EOM intact bilaterally; no conjunctival abnormality ENMT: external ear and nose normal, oropharynx normal Neck: trachea midline, no thyromegaly normal visual inspection Respiratory: normal respiratory effort, lungs clear to auscultation no respiratory distress Cardiovascular: Rate/Rhythm: regular rhythm and + tachycardic Heart Sounds: normal S1 and normal S2; no murmur Vessels: no JVD Extremities: no edema Gastrointestinal (Abdomen): Inspection/Auscultation: + abdomen distended; + abdomen abnormal to inspection and + abnormal bowel sounds Percussion/Palpation: + abdomen tender and abdomen soft; no guarding and abdomen not rigid Musculoskeletal: no cyanosis or clubbing, extremities motor strength 5/5 Skin: no rashes, warm and dry Neurologic: moves all extremities and awake Psychiatric: Orientation: alert, oriented to person and cooperative Results & Data Vital Signs (Past 12 Hours) Vital Signs Temp Pulse Resp BP BP Pulse Ox 02/28/19 07:48 36.4 C L 79 19 106/71 100 02/28/19 04:49 36.8 C 80 16 105/70 97 02/27/19 22:48 37.1 C 83 18 102/63 98 PG Care Time/CCT Total # of Minutes Spent Total Time Spent with Patient: Total time spent is greater than 50% in coordination of care (as documented) at patient's floor/unit and/or counseling patient: (1) Malignant neoplasm of pancreas Pancreatic malignancy location: unspecified Qualified Code(s): C25.9 - Malignant neoplasm of pancreas, unspecified
[2019-02-28] MEDS: FAMOTIDINE 20 MG in SYRINGE 3 ML IV SCH ×2 (10:00→21:20)
--- NOTE | 2019-02-28 14:57 | Gastroenterology Progress Note ---
Date of Service February 28, 2019 Assessment & Plan (1) Duodenal stenosis: secondary to tumor--awaiting transfer to [place] when bed available pancreas cancer--per oncology nutrition--per nurse TPN ordered for tonight which is appropriate. She needs duodenal stent replaced at [place]. No further GI recommendations. Will sign off. Subjective cc f/u duodenal obstruction HPI Per nursing lot of NG output but she is also taking in quite a bit of ice chips. Drainage observed is yellow. No abd pain. Passing gas and some stools. Review of Systems Respiratory: no dyspnea Cardiovascular: no chest pain Physical Exam Constitutional: WD/WN, vitals as above Respiratory: normal respiratory effort, lungs clear to auscultation Cardiovascular: RRR, no murmur, no edema Gastrointestinal (Abdomen): pos bs, soft, no guarding nor rebound Results & Data Vital Signs (Past 12 Hours) Vital Signs Temp Pulse Resp BP BP Pulse Ox 02/28/19 07:48 36.4 C L 79 19 106/71 100 02/28/19 04:49 36.8 C 80 16 105/70 97
[2019-02-28] MEDS ORDERED: DEXTROSE 10% 1,000 ML IV SCH (16:00)
[2019-02-28] MEDS ORDERED: CUSTOM CENTRAL PN IV SCH (16:00)
[2019-03-01 10:05] LABS: Hematocrit (blood only) 27.4 % (37-47); Hemoglobin 8.8 g/dL (12.0-16.0); Mean Corpuscular Hgb Conc 32.1 g/dL (32-36); Mean Corpuscular Volume 87.8 fL (80-100); RDW Coefficient of Variation 18.6 % (11.5-14.5); RDW Standard Deviation 60.2 fL (36.4-46.3); Red Blood Count 3.12 M/uL (4.2-5.4); White Blood Count 3.07 K/uL (4.8-10.8)
[2019-03-01 10:06] LABS: Mean Platelet Volume 9.5 fL (7.4-10.4); Platelet Count 51 K/uL (130-400)
[2019-03-01] MEDS: FAMOTIDINE 20 MG in SYRINGE 3 ML IV SCH ×2 (10:12→20:28)
[2019-03-01 10:32] LABS: Eosinophils # (auto) 0.01 K/uL (0-0.5); Eosinophils % (auto) 0.3 %; Immature Granulocytes # (auto) 0.01 K/uL (0.00-0.02); Immature Granulocytes % (auto) 0.3 %; Lymphocytes # (auto) 0.38 K/uL (1.2-3.4); Lymphocytes % (auto) 12.4 %; Monocytes # (auto) 0.25 K/uL (0.11-0.59); Monocytes % (auto) 8.1 %; Neutrophils # (auto) 2.42 K/uL (1.4-6.5); Neutrophils % (auto) 78.9 %; Spherocytes 1+
[2019-03-01 10:36] LABS: BUN Creatinine Ratio 24.2 (10-20); Calcium 8.5 mg/dl (8.5-10.1); Creatinine Clr Calc Pharmacy 122.8 ml/min; Est GFR (African American) 124.2; Est GFR (Non-African American) 107.2; Magnesium 2.2 mg/dl (1.8-2.4); Potassium 3.5 mmol/L (3.5-5.1)
[2019-03-01 10:44] LABS: Phosphorus 2.9 mg/dl (2.5-4.9)
--- NOTE | 2019-03-01 11:19 | Hospitalist Progress Note ---
Date of Service March 01, 2019 Assessment & Plan (1) Gastric outlet obstruction: CT a/p on 02/26 showed the duodenal stent in an unchanged position; however, the stomach was distended suggesting stent dysfunction/gastric outlet obstruction. An upper GI series on 02/27 showed high grade stenosis proximal to the duodenal stent. Plan to transfer to [facility] for hopeful endoscopic therapy. - NG tube placed for comfort - Was consistently draining 500cc every shift of yellow-brown, feculent material. - Still with large amounts of output; however, now mixed with what the patient is drinking to keep her throat from getting sore. - Started TPN on 02/28 for what is amounting to >7 days without enteral nutrition. (2) Portal vein thrombosis: Seen on CT a/p on 02/26; in discussion with [facility], this is not a new finding. - Was on a heparin gtt for a few hours only. (3) Malignant neoplasm of pancreas: Metastatic and progressing pancreatic cancer. First round of gemcitabine/Abraxane given on Saturday, 02/23. - Monitor CBC - Plts were 51 and WBC was 1.44 on 03/01. Not neutropenic at this time. Dispo: Have been waiting for a bed at [facility] since Saturday. On Saturday, can call [facility]: Dr. Rafy Mckeon - [phone] Rebekah Silverio (delivery table feedercommunity sports coordinator) - [phone] Trying to expedite transfer as much as possible. Subjective Still with very sore throat. Feeling some more energy after starting TPN. Having small BMs. No diarrhea. Review of Systems Review of Systems: All systems reviewed & are unremarkable except as noted in HPI & below Physical Exam Constitutional: WD/WN, vitals as above + acute distress and + ill appearing Eyes: EOM intact bilaterally; no conjunctival abnormality ENMT: external ear and nose normal, oropharynx normal Neck: trachea midline, no thyromegaly normal visual inspection Respiratory: normal respiratory effort, lungs clear to auscultation no respiratory distress Cardiovascular: Rate/Rhythm: regular rhythm and + tachycardic Heart Sounds: normal S1 and normal S2; no murmur Vessels: no JVD Extremities: no edema Gastrointestinal (Abdomen): Inspection/Auscultation: + abdomen distended and normal bowel sounds; + abdomen abnormal to inspection Percussion/Palpation: abdomen soft; abdomen nontender, no guarding and abdomen not rigid Musculoskeletal: no cyanosis or clubbing, extremities motor strength 5/5 Skin: no rashes, warm and dry Neurologic: moves all extremities and awake Psychiatric: Orientation: alert, oriented to person and cooperative Results & Data Vital Signs (Past 12 Hours) Vital Signs Temp Pulse Resp BP BP Pulse Ox 03/01/19 11:00 36.7 C 86 20 112/76 99 03/01/19 07:38 36.8 C 83 18 100/69 96 03/01/19 03:57 37.2 C 89 16 108/74 97 03/01/19 00:16 37.3 C 86 18 110/74 96 PG Care Time/CCT Total # of Minutes Spent Total Time Spent with Patient: Total time spent is greater than 50% in coordination of care (as documented) at patient's floor/unit and/or counseling patient: (1) Malignant neoplasm of pancreas Pancreatic malignancy location: unspecified Qualified Code(s): C25.9 - Malignant neoplasm of pancreas, unspecified
[2019-03-01] MEDS ORDERED: LIDOCAINE HCL VISCOUS SOLN 2% 15 ML UDC MT PRN (11:28)
[2019-03-01] MEDS ORDERED: CUSTOM CENTRAL PN IV SCH (16:00)
[2019-03-02 08:22] LABS: Hematocrit (blood only) 25.6 % (37-47); Hemoglobin 8.3 g/dL (12.0-16.0); Mean Corpuscular Hgb Conc 32.4 g/dL (32-36); Mean Corpuscular Volume 86.8 fL (80-100); RDW Coefficient of Variation 18.5 % (11.5-14.5); RDW Standard Deviation 58.9 fL (36.4-46.3); Red Blood Count 2.95 M/uL (4.2-5.4); White Blood Count 2.76 K/uL (4.8-10.8)
[2019-03-02 08:24] LABS: Platelet Count 44 K/uL (130-400)
[2019-03-02 08:45] LABS: Eosinophils # (auto) 0.01 K/uL (0-0.5); Eosinophils % (auto) 0.4 %; Immature Granulocytes # (auto) 0.01 K/uL (0.00-0.02); Immature Granulocytes % (auto) 0.4 %; Lymphocytes # (auto) 0.34 K/uL (1.2-3.4); Lymphocytes % (auto) 12.3 %; Monocytes # (auto) 0.34 K/uL (0.11-0.59); Monocytes % (auto) 12.3 %; Neutrophils # (auto) 2.06 K/uL (1.4-6.5); Neutrophils % (auto) 74.6 %; Ovalocytes 1+; Tear Drop Cells 1+
[2019-03-02 08:46] LABS: BUN Creatinine Ratio 39.7 (10-20); Calcium 8.2 mg/dl (8.5-10.1); Creatinine Clr Calc Pharmacy 176.3 ml/min; Est GFR (Non-African American) 120.8; Magnesium 2.1 mg/dl (1.8-2.4); Potassium 3.7 mmol/L (3.5-5.1)
[2019-03-02 08:47] LABS: Phosphorus 3.2 mg/dl (2.5-4.9)
[2019-03-02] MEDS: FAMOTIDINE 20 MG in SYRINGE 3 ML IV SCH (09:02)
--- NOTE | 2019-03-02 10:13 | Pharmacy Report ---
PHA: Parenteral Nutrition Con - Date of Service March 02, 2019 - Scope Pharmacy was consulted on 02/28 to manage parenteral nutrition orders for this patient. - Subjective The patient is currently on day 2 of central parenteral nutrition for gastric outlet obstruction and NPO > 7 days. PMH significant for pancreatic cancer. - Objective Height: 5 ft 9 in Weight: 70 kg Diet: NPO Vascular Access:: implanted port Intake & Output (24hrs):: Intake & Output 02/28/19 03/01/19 03/02/19 03/03/19 06:59 06:59 06:59 06:59 Intake Total 3660 / 3660 1393.75 / 1393.75 2000 / 2640 640 / 640 Output Total 3650 / 3650 3700 / 3700 1802 / 2602 800 / 800 Balance 10 / 10 -2306.25 / -2306.25 198 / 38 -160 / -160 Weight 69.7 kg 70 kg Laboratory Data (Last 24 Hr):: 03/01/19 03/02/19 09:54 07:58 Sodium 140 141 Potassium 3.5 3.7 Chloride 106 108 H Carbon Dioxide 27 28 BUN 14 16 Creatinine 0.56 L 0.39 L Glucose 120 H 119 H Calcium 8.5 8.2 L Phosphorus 2.9 3.2 Magnesium 2.2 2.1 Nutrition Assessment:: Please refer to the Notes section of the EMR for the most recent project controls scheduler note. - Assessment * Patient awaiting transfer to [facility] for duodenal stent replacement * Still with significant NG output - > 3500 mL yesterday * Electrolytes remain stable * Current lipid provision is ~50% of non-protein calories. Will adjust to be closer to 30% of NPC. Blood glucoses stable as well. - Plan For day 3 of PN administration, the following will be ordered: Macronutrients Amino acids 100 grams/day Dextrose 200 grams/day Lipids 25 grams/day Micronutrients Sodium acetate 100 mEq Potassium phosphate 21 mMol Potassium acetate 80 mEq Magnesium sulfate 8.12 mEq Calcium gluconate 9.2 mEq Multivitamins 10 mL Trace Elements 1 mL Folic acid 1 mg Thiamine 100 mg Pepcid 40 mg (was previously on pushes, change to incorporate in the bag) Total volume 2000 mL to be infused over 24 hrs will provide 1330 kcal/day Labs, as indicated, will be ordered per protocol Pharmacy will continue to follow and adjust parenteral nutrition orders on a daily basis. Thank you for allowing us to participate in the care of this patient.
--- NOTE | 2019-03-02 14:19 | Palliative Care Progress Note ---
Date of Service March 02, 2019 Assessment & Plan (1) Palliative care encounter: Patient is a 54-year-old female with metastatic pancreatic cancer-status post biliary stent and a duodenal stent for obstructive symptoms. Patient was diagnosed with pancreatic cancer in December 2017 when she presented in November with abdominal bloating and nausea. Patient had common bile duct obstruction at presentation-had a common bile duct stent placed. Patient had a proximal duodenal narrowing-had a duodenal stent placed. Patient was started on chemo- completed entire course with some response, however in November 2018 was found to have carcinomatosis. Patient is also seen at [facility], oncology here co ordinates her chemo treatments with them. Patient's pain has been well controlled on tramadol 100 mg 4 times daily PRN for pain, 1 mg of Decadron for partial bowel obstruction as well as mood and appetite. Patient was last seen in clinic on 02/05 and again on 02/17 during her previous hospitalization for constipation and bowel obstruction. Patient presented to the emergency room today with nausea, vomiting and fever. Patient had a received a dose of chemotherapy on 02/23-these were expected side effects from the chemo. Patient's white count, hemoglobin and platelets are starting to trend downward. Patient currently has an NG tube to intermittent suction and on TPN.. CT scan showed significantly distended stomach C/W gastric outlet obstruction. Patient had upper GI studies-which revealed significant narrowing proximal to her duodenal stent. . Plan is to transfer patient to [place], await their acceptance of patient and bed availability Discussed yesterday with both patient and sister regarding asking about a venting G-tube-if it can be placed at the time that the stent is addressed - For future use -Gastric outlet obstruction-upper GI studies show significant narrowing proximal to duodenal stent. Patient on bowel rest with intermittent NG suction and TPN- plan is to transfer to [facility] for further evaluation and treatment. -Abdominal pain-on IV Tylenol as needed, PRN morphine for severe pain-avoiding opioids when possible -Portal vein thrombosis-this is not new per [facility]-attending plans to discontinue IV heparin. -Pancreatic cancer-diagnosed in December 2017-now with increasing carcinomatosis. Patient planning to continue chemo -Constipation-likely due to tramadol-patient was on bowel regime at home -Biliary obstruction-status post biliary stent-bili slightly elevated-continue to monitor. Plan for transfer to [facility]-patient will make appointment in outpatient palliative clinic for follow-up after discharge. (2) Gastric outlet obstruction: (3) Portal vein thrombosis: (4) Malignant neoplasm of pancreas: Subjective Patient seen and examined, friend of patient at bedside, nursing also at bedside. Patient awaiting transfer to [facility]-awaiting to hear from [facility] when they can accept the patient. Patient continues to have NG tube to intermittent suction. Patient started on TPN for nutrition. Patient's last round of chemo was on 02/23-white count, hemoglobin and platelets trending slightly downward. Patient's BUN is 16 with a creatinine of 0.39 Review of Systems Review of Systems: Patient denies fever, chills, chest pain, shortness of breath, or abdominal pain. No recent nausea Physical Exam Physical Exam: PE: NAD HEENT: EOMI, hearing within normal limits Respirations: Unlabored CV: Regular rate Abdomen: No increased distention, NG tube in place Extremities: No edema Neuro: Alert and oriented x4 Results & Data Vital Signs (Past 12 Hours) Vital Signs Temp Pulse Resp BP BP Pulse Ox 03/02/19 11:40 98.1 F 94 H 17 95/62 L 96 03/02/19 07:20 98.8 F 96 H 17 104/70 94 03/02/19 03:07 99.0 F 89 20 104/69 95 PG Care Time/CCT Total # of Minutes Spent Total Time Spent with Patient: Total time spent is greater than 50% in coordination of care (as documented) at patient's floor/unit and/or counseling patient: Time Spent Attending Total time spent 25 minutes with greater than 50% of time spent at bedside assessing patient's current status and providing support. (1) Malignant neoplasm of pancreas Pancreatic malignancy location: unspecified Qualified Code(s): C25.9 - Malignant neoplasm of pancreas, unspecified
[2019-03-02] MEDS ORDERED: CUSTOM CENTRAL PN IV SCH (16:00)
--- NOTE | 2019-03-02 17:44 | Discharge Summary ---
Date of Service March 02, 2019 Admission HPI Per Admitting Provider 54yo F w/ hx of metastatic pancreatic cancer who presents with gastric outlet obstruction. She reports that she has continually felt nauseated and ill for some time. She underwent her new chemotherapy on 02/23/2019 and felt nauseated; however, she started throwing up yesterday at approx. 4:30am. She reports the emesis was clear liquid, no blood or coffee grounds. She felt ill throughout the day, and called the oncologist who reported to her to see him the next day; however, she has not been able to keep anything down since then and had another large, watery emesis this morning, causing her to present to the ED. In the ED, a CT a/p showed a gastric outlet obstruction near the site of her duodenal stent along with gastric distension. Principal Diagnosis Gastric outlet obstruction, Metastatic pancreatic Cancer Discharge Exam Constitutional WD/WN, vitals as above Eyes + scleral abnormality ENMT external ear and nose normal, oropharynx normal Neck trachea midline, no thyromegaly Respiratory normal respiratory effort, lungs clear to auscultation Cardiovascular RRR, no murmur, no edema Gastrointestinal (Abdomen) Inspection/Auscultation: abdomen normal to inspection and + hypoactive bowel sounds; abdomen not distended Percussion/Palpation: abdomen soft; abdomen nontender NGT in place to LIS Musculoskeletal Extremities: extremities normal to inspection; no cyanosis and no clubbing Skin no rashes, warm and dry Neurologic moves all extremities and awake; no focal motor deficits Psychiatric A+Ox3, euthymic affect Discharge Data Allergies Allergy/AdvReac Type Severity Reaction Status Date / Time iodine Allergy Intermediate ITCHY/HIVES Verified 02/16/19 09:33 Iodinated Contrast- Oral and Allergy Unknown CONTRAST Verified 02/16/19 09:33 IV Dye MEDIA: ITCHY/HIVES Consultations 02/26/19 07:47 Consult Gastroenterology Stat ED Decision to Admit Stat 02/26/19 10:30 Consult Hematology Routine Consult Palliative Care Routine Ordered Studies 02/26/19 05:48 CT abd pelvis IV con only Stat 02/27/19 11:00 FL upper GI series wo air Urgent Hospital Course (1) Gastric outlet obstruction: CT a/p on 02/26 showed the duodenal stent in an unchanged position; however, the stomach was distended suggesting stent dysfunction/gastric outlet obstruction. An upper GI series on 02/27 showed high grade stenosis proximal to the duodenal stent. Plan to transfer to [facility] for hopeful endoscopic therapy. - NG tube placed for comfort - Was consistently draining 500cc every shift of yellow-brown, feculent material. - Still with moderate amounts of output; however, now mixed with what the pat ient is drinking/ice chips,popsicles to keep her throat from getting sore. - Started TPN on 02/28 for what is amounting to >7 days without enteral nutrition. -following daily labs (2) Portal vein thrombosis: Seen on CT a/p on 02/26; in discussion with [facility], this is not a new finding. - Was on a heparin gtt for a few hours only. (3) Malignant neoplasm of pancreas: Metastatic and progressing pancreatic cancer. First round of gemcitabine/Abraxane given on Saturday, 02/23. - Monitor CBC - Plts were 51 and WBC was 1.44 on 03/01. Not neutropenic at this time. Dispo: Transfer urgently t [facility] today-accepting physician is Dr. Keyonna Mckeon - [phone] Rebekah Silverio (oncology nurseoncology physician) - [phone] Trying to expedite transfer as much as possible. Total Time Total Time Spent Total Time Spent (In Minutes): >30 min Total Time Includes: Examination of the Patient, Discharge Planning and Medication Reconciliation Discharge Plan Discharge Items Patient Disposition: Transfer Acute Care Hospital Reason For Visit: GASTRIC OUTLET OBSTRUCTION Discharge Diagnosis: Same Condition: Fair Discharge Goals: Decrease discomfort Activity: Resume your previous activity Non-emergency contact: Primary Care Provider and Oncologist Call non-emergency contact if: your symptoms worsen Follow-up/Referrals: Hammad Mathis MD [Primary Care Provider] - Diet: Nothing by mouth Addtl Provider Instructions: Transferred to [facility] Prescriptions: Continued albuterol sulfate [ProAir HFA] 90 mcg/actuation Hfa Aerosol Inhaler 2 puff INHALATION Q4H PRN (Reason: Wheezing) RF: 0 Discontinued ondansetron HCl [Zofran] 4 mg tablet 4 mg PO Q6H PRN (Reason: nausea and vomiting) RF: 0 desloratadine [Clarinex] 5 mg tablet 5 mg PO DAILY PRN (Reason: allergies) Qty: 90 RF: 3 lansoprazole 30 mg Capsule,Delayed Release(Dr/Ec) 30 mg PO QAM RF: 0 prochlorperazine maleate 10 mg Tablet 10 mg PO Q6H PRN (Reason: nausea/vomiting) RF: 0 tramadol 50 mg tablet 50 mg PO Q6H PRN (Reason: Pain) RF: 0 dexamethasone 1 mg tablet 1 mg PO DAILY RF: 0 polyethylene glycol 3350 [Miralax] 17 gram Powder In Packet 17 g PO DAILY PRN (Reason: constipation) Qty: 30 RF: 0 prednisone 20 mg tablet PRN (Reason: Allergic Symptoms) RF: 0 Stand-Alone Forms: [facility] Discharge Orders: Discharge Order (Routine); Ordered 03/02/19 Ordered By: Becky Moncada Admission Data Admit Date/Time: 02/26/19 08:42 Attending Provider: Becky Moncada Admit Provider: Amari Gutierrez Primary Care Provider: Hammad Mathis Other Providers: Mauricio Quezada ; Amari Gutierrez ; Richard Santana ; Keke Chau Service: Medical Other Pending Studies at Discharge: No
== END 2019-03-02 19:59 | disposition short-term general hospital (02) | DRG 444 ==
LOC: ED 05:26 → 4W 08:42 → SUATTDRO 08:42 → 4W 10:12
DX: K59.03 Drug induced constipation; K31.5 Obstruction of duodenum; I81 Portal vein thrombosis; Z91.041 Radiographic dye allergy status; K31.1 Adult hypertrophic pyloric stenosis; K83.1 Obstruction of bile duct; Z51.5 Encounter for palliative care; C25.9 Malignant neoplasm of pancreas, unspecified; K21.9 Gastro-esophageal reflux disease without esophagitis; T40.4X5A Adverse effect of other synthetic narcotics, initial encounter